=== PATIENT | male | born 1940 | race Caucasian/White ===

== ENCOUNTER 2016-10-08 12:26 | Observation (INO) | payer MEDICARE, BC ==
[2016-10-08] MEDS ORDERED: Aspirin Low Dose CHEW TAB* 81 MG PO ONE (12:45)
--- NOTE | 2016-10-08 12:49 | ED ---
Headache - HPI Summary HPI Summary: Patient is BIBA after falling in his yard. His has balance issues and ambulates with a cane at baseline. He think he stepped on a loose brick in his yard which made him loose his balance, but also thinks he "passed out". His was in the front yard so a neighbor saw him down in the yard and called 911. He admits to neck pain and chest pain. He has an extensive medical history and is a poor historian, but his says his lasix was increased yesterday and he recently had 18 rounds of chemotherapy that was stopped due to mcgee in his mouth. Today he denies TELLES, recent illness, N/V/D, abdominal or hip pain. He has chronic back pain which is aching now. He has glaucoma, but denies new vision changes. 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 Onset/Duration: Sudden Onset Initially Headache Was: Mild Currently Pain Is: Mild Timing: Constant Character: Dull Location of Headache: Occipital Aggravating Factor: Nothing Allevating Factors: Nothing Associated Signs And Symptoms: Neck Pain - Allergies/Home Medications Allergies/Adverse Reactions: Allergies Allergy/AdvReac Type Severity Reaction Status Date / Time Diazepam [From Valium] Allergy Unknown Verified 10/08/16 12:42 Reaction Details Iodinated Diagnostic Agents Allergy Nausea And Verified 10/08/16 12:42 Vomiting Sulfa Antibiotics Allergy Hives Verified 10/08/16 12:42 Timolol Allergy Dizziness Verified 10/08/16 12:43 Home Medications: Home Medications Aspirin EC Low Dose* [Ecotrin EC Low Dose 81 MG*] 81 mg PO DAILY 10/08/16 [ History Confirmed 10/08/16] Brimonidine 0.2 % * [Alphagan P 0.2% *] 1 drop BOTH EYES BID 10/08/16 [History Confirmed 10/08/16] Cholecalciferol [Vitamin D3] 800 unit PO DAILY 10/08/16 [History Confirmed 10/08] Citalopram TAB* [CeleXA TAB*] 20 mg PO DAILY 10/08/16 [History Confirmed ] Darbepoetin Galo* [Aranesp Albumin Free*] 300 mcg IV Q14D 10/08/16 [History Confirmed 10/08/16] Fexofenadine (NF) [Rebecca 180 (NF)] 180 mg PO DAILY PRN 10/08/16 [History Confirmed 10/08/16] Folic Acid TAB* [Folvite TAB*] 1 mg PO BID 10/08/16 [History Confirmed 10/08/16] Latanoprost 0.005%* [Xalatan 0.005%*] 1 drop BOTH EYES BEDTIME 10/08/16 [ History Confirmed 10/08/16] Losartan Potassium & Hydrochlo [Hyzaar 100/12.5 mg] 1 tab PO DAILY 10/08/16 [ History Confirmed 10/08/16] Polyethylene Glycol 3350* [Miralax*] 17 gm PO DAILY PRN 10/08/16 [History Confirmed 10/08/16] Pregabalin CAP(*) [Lyrica CAP(*)] 100 mg PO TID 10/08/16 [History Confirmed ] Repaglinide TAB* [Prandin TAB*] 0.5 mg PO TID 10/08/16 [History Confirmed ] SitaGLIPtin (NF) [Januvia (NF)] 100 mg PO DAILY 10/08/16 [History Confirmed ] clonazePAM TAB(*) [KlonoPIN TAB(*)] 0.5 - 1 mg PO BID PRN MDD 2 mg 10/08/16 [ History Confirmed 10/08/16] fentaNYL PATCH 25 MCG/HR* [Duragesic PATCH 25 Mcg/Hr*] 25 mcg TRANSDERM Q72H [History Confirmed 10/08/16] PMH/Surg Hx/FS Hx/Imm Hx Endocrine/Hematology History: Reports: Hx Diabetes Cardiovascular History: Reports: Hx Hypertension, 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 right AC joint surg. arm fx. right ankle compound fx. cataract right side Infectious Disease History: No Infectious Disease History: Denies: Traveled Outside the [place] in Last 30 Days - Family History Known Family History: Positive: Cardiac Disease, Hypertension - Social History Occupation: Retired Lives: With Family Alcohol Use: None Substance Use Type: Reports: None Smoking Status (MU): Former Smoker Review of Systems Negative: Fever, Chills Negative: Photophobia, Blurred Vision, Diplopia, Drainage Positive: Chest Pain Negative: Shortness Of Breath Negative: Abdominal Pain, Vomiting, Diarrhea, Nausea Positive: Edema - bilateral ankles at baseline Positive: Paresthesia - baseline neuropathy. Negative: Weakness All Other Systems Reviewed And Are Negative: Yes Physical Exam Triage Information Reviewed: Yes Vital Signs On Initial Exam: Initial Vitals BP 168/69 10/08/16 12:32 Vital Signs Reviewed: Yes Appearance: Positive: Well-Appearing, Pain Distress, Obese Skin: Positive: Warm, Skin Color Reflects Adequate Perfusion, Dry, Tender Head/Face: Positive: Normal Head/Face Inspection - no abrasions, lacerations or hematomas Eyes: Positive: EOMI, MIRELA, Conjunctiva Inflammed - bilateral erythema at baseline ENT: Positive: Hearing grossly normal, Pharynx normal, TMs normal Neck: Positive: Supple, No Lymphadenopathy, Tenderness @ - cervical spine Respiratory/Lung Sounds: Positive: Clear to Auscultation, Breath Sounds Present. Negative: Rales, Rhonchi, Wheezes Cardiovascular: Positive: Bradycardia Abdomen Description: Positive: Nontender, Soft. Negative: Distended - body habitus is limiting, Guarding Musculoskeletal: Negative: Edema Left, Edema Right Neurological: Positive: Sensory/Motor Intact, Alert, Oriented to Person Place, Time, CN Intact II-III, NV Bundle Intact Distally Psychiatric: Positive: Affect/Mood Appropriate AVPU Assessment: Alert Diagnostics - Vital Signs Vital Signs Temp Pulse Resp BP Pulse Ox 10/08/16 12:34 98.6 F 54 16 165/69 98 10/08/16 12:32 168/69 - Laboratory Result Diagrams: 10/08/16 13:15 10/08/16 13:15 Lab Statement: Any lab studies that have been ordered have been reviewed, and results considered in the medical decision making process. - CT No standard instances CT Interpretation: No Acute Changes CT Interpretation Completed By: Radiologist - CT brain negative; CT cervical spine negative; CT chest incidental nodule left lung - EKG No standard instances Cardiac Rate: Bradycardia EKG Rhythm: Sinus Rhythm ST Segment: Normal Ectopy: None EKG Comparison: No Significant Change Headache Course/Dx - Diagnoses Differential Diagnosis/HQI/PQRI: TIA, Subdural Hematoma, Migraine, Sinus Headache, Subarachnoid Hemorrhage, Viral Syndrome Provider Diagnoses: Syncope - Physician Notifications Discussed Care Of Patient With: Dr. Tillman, ED attending; Dr. Baird, hospitalist. Instructed by Provider To: Admit As Inpatient Discharge - Discharge Plan Condition: Stable Disposition: ADMITTED TO [facility]
[2016-10-08 13:29] LABS: Hematocrit 32 % (42-52); Hemoglobin 10.6 g/dl (14.0-18.0); Mean Corpuscular HGB Conc 33 g/dl (31-36); Mean Corpuscular Hemoglobin 26 pg (27-31); Mean Corpuscular Volume 79 fL (80-94); Mean Platelet Volume 9 um3 (7.4-10.4); Red Blood Count 4.04 10^6/ul (4.0-5.4); Red Cell Distribution Width 23 % (10.5-15); White Blood Count 4.3 10^3/ul (3.5-10.8)
[2016-10-08 13:30] LABS: Add Diff/Slide Review? Slide Review Added; Comments Flag Yes
[2016-10-08] MEDS ORDERED: Acetaminophen TAB* 325 MG PO ONE (13:32)
[2016-10-08 13:48] LABS: Albumin 3.8 g/dL (3.2-5.2); BUN/Creatinine Ratio 14.3 (8-20); EGFR African American 88.1 (>60); EGFR Non-African American 68.5 (>60); Globulin 2.8 g/dL (2-4); Magnesium 1.8 mg/dL (1.9-2.7); Total Bilirubin 0.8 mg/dL (0.2-1.0); Total Protein 6.6 g/dL (6.4-8.9)
--- NOTE | 2016-10-08 13:58 | RAD ---
HISTORY: Fall, syncope COMPARISONS: None TECHNIQUE: Multiple contiguous axial CT scans were obtained of the head without intravenous contrast. FINDINGS: HEMORRHAGE/INFARCT: There is no hemorrhage or acute infarct. MASSES/SHIFT: There is no mass or shift. EXTRA-AXIAL SPACES: There are no extra-axial fluid collections. SULCI AND VENTRICLES: There is diffuse and proportional enlargement of the sulci and ventricles. CEREBRUM: There is hypoattenuation of the periventricular and subcortical white matter. BRAINSTEM: There are no focal parenchymal abnormalities. CEREBELLUM: There are no focal parenchymal abnormalities. VESSELS: The vessels are grossly normal. PARANASAL SINUSES: The paranasal sinuses are clear. ORBITS: The orbits are unremarkable. BONES AND SOFT TISSUE: No bone or soft tissue abnormalities are noted. OTHER: None IMPRESSION: NO ACUTE INTRACRANIAL PATHOLOGY. DIFFUSE INVOLUTIONAL CHANGE WITH CHRONIC SMALL VESSEL ISCHEMIC CHANGES.
--- NOTE | 2016-10-08 14:00 | RAD ---
HISTORY: Fall, syncope COMPARISONS: None TECHNIQUE: Multiple contiguous axial CT scans were obtained of the cervical spine without intravenous contrast, with coronal and sagittal multiplanar reformations. FINDINGS: BRAIN: The visualized brain is unremarkable CENTRAL CANAL: Evaluation of the central canal is limited on CT technique; however, there is no obvious canalicular mass or epidural hemorrhage. ALIGNMENT: The alignment is normal, without subluxation or dislocation. VERTEBRAL BODIES: There is multilevel anterolateral marginal osteophyte formation. There is no displaced fracture or dislocation. Incidental noted is a dysraphic defect of the posterior arch of C1 JOINTS: There is osteoarthritis of the uncovertebral and facet joints MUSCULATURE: Unremarkable INTERVERTEBRAL DISCS: There is diffuse loss of intervertebral disc height. AXIAL IMAGES: C2-C3: There is no osseous neural foraminal narrowing or central canal stenosis. C3-C4: There is bilateral uncovertebral and facet hypertrophy. There is moderate right neural foraminal narrowing. There is no osseous central canal stenosis. C4-C5: There is bilateral vertebral and facet hypertrophy. There is severe right and moderate left neural foraminal area. There is moderate narrowing of central canal. C5-C6: There is bilateral uncovertebral and facet hypertrophy. There is mild to moderate bilateral neural foraminal narrowing. There is no osseous central canal stenosis. C6-C7: There is bilateral uncovertebral and facet hypertrophy. There is no osseous neural foraminal narrowing or central canal stenosis. C7-T1: There is right greater than left uncovertebral hypertrophy. There is mild right neural foraminal narrowing. There is no osseous central canal stenosis.. SOFT TISSUES: The visualized soft tissues of the neck are unremarkable. The prevertebral fat stripe is preserved. OTHER: None. IMPRESSION: 1. DEGENERATIVE DISC DISEASE AND OSTEOARTHRITIS. 2. THERE IS MODERATE NARROWING OF THE CENTRAL CANAL AT C4-C5. 3. THERE IS MULTILEVEL NEURAL FORAMINAL NARROWING DESCRIBED ABOVE. 4. THERE IS NO ACUTE OSSEOUS INJURY TO THE CERVICAL SPINE
--- NOTE | 2016-10-08 14:12 | RAD ---
INDICATION: Chest pain post fall. Syncope. COMPARISON: April 05, 2011 chest radiograph. TECHNIQUE: Multidetector CT images were obtained from the lung apices to the upper abdomen. Evaluation of the viscera is limited without IV contrast. REPORT: Negative for pleural effusion or pneumothorax. 1.4 x 1.3 x 1.2 cm irregularly margined/spiculated nodule at the lateral basal segment of the LEFT lower lobe associated with a bronchovascular bundle. No additional focal pulmonary parenchymal or central endobronchial lesions evident. Negative for thoracic lymphadenopathy. Upper normal heart size. Negative for pericardial effusion. Median sternotomy wires and prosthetic aortic valve. Limited images through the upper abdomen are remarkable for prominence of the partially visualized spleen. No rib, sternal, or thoracic spine or other thoracic fracture evident. Polyarticular degenerative arthropathy. Multilevel segmental ossification of the anterior longitudinal ligament of the thoracic spine consistent with Diffuse Idiopathic Skeletal Hyperostosis (DISH). IMPRESSION: 1. No traumatic thoracic injury evident. 2. Incidental spiculated noncalcified nodule at the lateral basal segment of the LEFT lower lobe concerning for a potential bronchogenic carcinoma. The lesion is amenable to CT-guided biopsy and also likely large enough for assessment with PET/CT. Results discussed with GELY Cowart 10/08/2016 2:09 PM EDT
--- NOTE | 2016-10-08 14:35 | RAD ---
HISTORY: Chest pain COMPARISONS: April 05, 2011 VIEWS:1: Single frontal portable view of the chest at 2:15 PM FINDINGS: LINES AND TUBES: None. CARDIOMEDIASTINAL SILHOUETTE: The cardiac silhouette is enlarged. The cardiomediastinal silhouette is otherwise normal for portable technique. PLEURA: The costophrenic angles are sharp. No pleural abnormalities are noted. LUNG PARENCHYMA: There is a diffuse reticular pattern with indistinct pulmonary vessels. ABDOMEN: The upper abdomen is clear. There is no subphrenic gas. BONES AND SOFT TISSUES: The patient is status post median sternotomy. IMPRESSION: MILD CARDIOMEGALY WITH PULMONARY INTERSTITIAL EDEMA
[2016-10-08] MEDS ORDERED: Ondansetron INJ* 2 MG/ML VIAL IV ONE (14:37)
[2016-10-08] MEDS ORDERED: Morphine INJ* 2 MG/ML 1 ML SYRINGE IV ONE (14:37)
[2016-10-08] MEDS ORDERED: Acetaminophen TAB* 325 MG PO PRN (15:13)
[2016-10-08] MEDS ORDERED: NS 0.9% 1000 ML* 1,000 ML IV SCH (15:15)
[2016-10-08] MEDS ORDERED: oxyCODONE TAB* 5 MG TAB PO PRN (15:16)
[2016-10-08] MEDS ORDERED: Dextrose 50% Syringe 50 ML* 25 GM/50 ML SYRINGE IV PUSH PRN (15:17)
[2016-10-08] MEDS ORDERED: clonazePAM TAB(*) 0.5 MG PO PRN (16:08)
[2016-10-08 16:48] LABS: TSH (Thyroid Stimulating Horm) 8.18 mcIU/mL (0.34-5.60)
[2016-10-08] MEDS ORDERED: Levothyroxine TAB* 25 MCG TAB PO ONE (16:52)
[2016-10-08] MEDS ORDERED: fentaNYL PATCH 25 MCG/HR TRANSDERM SCH (17:00)
[2016-10-08] MEDS: Insulin LISPRO* 1 UNITS UNIT SUBCUT SCH (18:32)
--- NOTE | 2016-10-08 19:22 | HP ---
ADDENDUM/CORRECTION TO MEDICATION LIST PER DR. MARX NOW INCLUDED ON THIS REPORT HISTORY AND PHYSICAL: DATE OF ADMISSION: 10/08/16 PRIMARY CARE PROVIDER: Dr. Dudley. MOSS GATHERER: Dr. Roderick Edwards from [place], [place]. CHIEF COMPLAINT: Status post fall. HISTORY OF PRESENT ILLNESS: Rafa Britt is a 76-year-old male with a history of diabetes, status post aortic valve replacement, memory problems recently as well as hypertension and chronic anemia who stated that he stepped on an uneven pavement and he fell backwards hitting his head. Immediately after hitting his head, the patient does not remember what happened. Currently , as per his present in the room, the patient is back to his baseline. He at baseline is mildly forgetful. Post fall, he started experiencing pleuritic chest pain that starts in his back , radiates to bilateral sides of his chest and can be elicited or worsened with change of position. His heart rate on the telemetry monitoring in the emergency department had been in the 40s and 60s. He is going to be admitted with diagnosis of status post fall. I suspect the patient has a mild concussion. We will also monitor for his bradycardia. PAST MEDICAL HISTORY: 1. History of known left bundle branch block. 2. Status post aortic valve replacement with a bovine aortic valve in 2010 in [place], [place]. The patient apparently was noted to have a valve leak after the replacement and had to have transaortic catheter repair of the valve in [facility] within the past 3 years. 3. History of spinal stenosis. 4. History of ganglion removal on his left hand. 5. History of carpal tunnel syndrome. 6. Dyslipidemia. 7. Hypertension. 8. Obstructive sleep apnea. 9. Diabetes type 2. 10. 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 11. History of chronic anemia, on Aranesp treatment. 12. History of bradycardia. The patient recently was taken off timolol eye drops due to bradycardia. MEDICATIONS: Include: 1. Aspirin 81 mg daily. 2. Celexa 20 mg daily. 3. Folic acid 1 mg daily. 4. Losartan/hydrochlorothiazide 100/12.5 mg daily. 5. Januvia 100 mg daily. 6. Clonazepam 0.5 mg 1 to 2 tablets twice a day as needed for anxiety. 7. Fentanyl patch 25 mcg every 72 hours. 8. Aranesp shots biweekly. 9. Vitamin D3, 800 units daily. 10. Brimonidine eye drops 1 drop each eye 2 times a day. 11. Latanoprost eye drops once before bedtime both eyes. 12. MiraLAX powder 17 g as needed for constipation daily. 13. Rebecca 180 mg daily as needed. ADDENDUM TO MEDICATION LIST: New medication - 1. Lyrica 100 mg 3 times a day. CORRECTION TO MEDICATION LIST: 1. Please take out Requip and add on Prandin 0.5 mg 3 times a day. ALLERGIES: Include 1. SULFA causes hives. 2. CONTRAST DYE causes rash and "choking." 3. VALIUM causes for the patient to get agitated. 4. TIMOLOL EYE DROPS were stopped due to noting the patient to be bradycardic. FAMILY HISTORY: Positive for father with hypertension and diabetes. SOCIAL HISTORY: The patient quit smoking in 1996. He denies any alcohol or drug use. He lives with his who is his surrogate. Her name is Marion Britt. REVIEW OF SYSTEMS: Please see history of present illness. The patient was noted recently to have low heart rate and timolol drops were discontinued. He also was noted to have high blood pressures during his evaluation with Dr. Dudley, and Dr. Dudley added on hydrochlorothiazide to his losartan just recently. Currently, the patient complains of thoracic back pain radiating to the front whenever he moves after the fall. The patient's stated that at baseline he has been having memory problems and she prefers not to leave him alone. His next evaluation by service specialist is in a couple of weeks and the patient receives shots for his anemia with Aranesp every other week. All the remaining 14 systems were reviewed with the patient and were otherwise negative. PHYSICAL EXAMINATION GENERAL: This is a pleasant 76-year-old male who is in no acute distress. The patient is alert, awake, and oriented x3. Poor short-term memory. VITAL SIGNS: Blood pressure of 142/65, heart rate of 45 and regular, respiratory rate 16, oxygen saturation 98% on room air, and temperature of 98.6. HEENT: Head: Atraumatic, normocephalic. Eyes: Pupils equal, reactive to light and accommodation. Oropharynx clear. Mucosa moist. NECK: Supple. No JVD, no bruit bilaterally. RESPIRATORY: Clear to auscultation bilaterally. CARDIOVASCULAR: Regular rate and rhythm. No bradycardia. ABDOMEN: Soft, nontender. Bowel sounds present in all 4 quadrants. EXTREMITIES: There is no edema. Pulses are +2 bilaterally. No clubbing or cyanosis. SKIN: On evaluation of the skin, specifically on evaluation of the patient's back, there are no abrasions, ecchymotic areas, or edema after the fall. When palpating the entire thoracic, lumbar, and sacral spine, there is no point tenderness noted, although the patient has generalized tenderness in the upper thoracic region. NEUROLOGIC EVALUATION: Speech clear. Cranial nerves II through XII grossly intact. Motor strength is 5/5 bilaterally. LABORATORY DATA AND DIAGNOSTIC STUDIES: Showed sodium of 134, potassium 4.0, chloride 101, carbon dioxide 30, BUN 15, creatinine 1.05. Liver function tests were unremarkable. Troponin of 0, and blood glucose level of 149. Lactic acid of 0.9. CBC: White blood cell count 4.3, hemoglobin 10.6, hematocrit of 32, MCV of 79, and platelets of 183. CT of the chest, impression: "No traumatic thoracic injury evident. Incidental spiculated non-calcified nodule in the lateral basal segment of the left lower lobe concerning for potential bronchogenic carcinoma at 1.4 x 1.3 x 1.2 cm. The lesion is amenable to CT-guided biopsy and also likely large enough for the assessment with a PET/CT." Cervical spine CT, impression: "Degenerative disk disease and osteoarthritis. There is moderate narrowing of the central canal at C4-C5. There is multilevel neuroforaminal narrowing as described above. There is no acute osseous injury to the cervical spine." Brain CT, impression: "No acute intracranial pathology. Diffuse involutional change and chronic small vessel ischemic changes." The patient's EKG shows known left bundle branch block and sinus bradycardia. ASSESSMENT AND PLAN: 1. Thoracic back pain radiating to chest: It is most likely associated to trauma and contusion. There is no evidence of cardiac abnormalities apart from bradycardia which apparently the patient had in the past. Nevertheless, due to sinus bradycardia and the patient's history of fall, the patient is going to be observed on telemetry monitored bed. TSH is going to be checked. 2. In regards to the patient's fall, the patient most likely suffered from concussion since he remembers the falling and hitting his head, but he does not remember what occurred immediately after. Once again, the patient is going to be observed on telemetry monitored bed. Due to fall and back pain, Physical Therapy and Occupational Therapy will see the patient for evaluation. 3. In regards to spiculated left lung nodule, I spoke with the patient and the patient's that that needs to be evaluated by a mold release worker and oncologist. The patient's prefers for the patient to have it evaluated by his oncologist in [place]. They already have scheduled an appointment in the mid of October 2016 for followup. 4. Once again, in regards to the patient's bradycardia, the patient's stated that if the patient were to be evaluated for pacemaker, she would prefer Dr. Edwards to do it at [place], [place]. 5. In regards to the patient's diabetic management, the patient is going to be placed on insulin sliding scale diabetic diet. 6. For his hypertension, his losartan and hydrochlorothiazide is going to be continued. 7. For his chronic pain, his fentanyl patch is going to be continued. 8. For DVT prophylaxis, the patient is going to be placed on heparin subcutaneously. 9. Code status is full. TIME SPENT: Approximately 65 minutes were spent on admission of this patient, more than half that time was spent [id number] with the patient during the interview and physical exam. CC: Dr. Dudley; Dr. Roderick Edwards, [place], [place]; Dr. Perri Mosley , Hematology/Oncology, [place], [place], fax # [phone] * [id number]/CPS #: [id number]/CPS #: [id number] [facility]
[2016-10-08] MEDS: fentaNYL Patch Check Q Shift 1 NOTE SCH (19:27)
--- NOTE | 2016-10-08 20:05 | HP ---
HISTORY AND PHYSICAL: ADDENDUM/CORRECTION: MEDICATION LIST: Please add on Lyrica 100 mg 3 times a day; that is a new medication. Please take out Requip and add on Prandin 0.5 mg 3 times a day. [id number]/[facility] #: [id number] MTDD
[2016-10-08] MEDS ORDERED: Latanoprost 0.005%* 2.5 ml BTL BOTH EYES SCH (21:00)
[2016-10-08] MEDS: Pregabalin CAP(*) 100 MG PO SCH (22:35)
[2016-10-08] MEDS: Repaglinide TAB* 0.5 MG PO SCH (22:36)
[2016-10-08] MEDS: Folic Acid TAB* 1 MG PO SCH (22:36)
[2016-10-08] MEDS: Senna TAB PO SCH (22:36)
[2016-10-09 05:32] LABS: Hematocrit 35 % (42-52); Hemoglobin 11.3 g/dl (14.0-18.0); Mean Corpuscular HGB Conc 32 g/dl (31-36); Mean Corpuscular Hemoglobin 26 pg (27-31); Mean Corpuscular Volume 81 fL (80-94); Mean Platelet Volume 9 um3 (7.4-10.4); Red Blood Count 4.35 10^6/ul (4.0-5.4); Red Cell Distribution Width 22 % (10.5-15); White Blood Count 3.5 10^3/ul (3.5-10.8)
[2016-10-09 05:40] LABS: Add Diff/Slide Review? Manual Diff Added; Comments Flag Yes
[2016-10-09 05:45] LABS: BUN/Creatinine Ratio 13.8 (8-20); Calcium 7.5 mg/dL (8.6-10.3); EGFR African American 100.1 (>60); EGFR Non-African American 77.8 (>60); Potassium 3.3 mmol/L (3.5-5.0)
[2016-10-09] MEDS ORDERED: Levothyroxine TAB* 25 MCG TAB PO SCH (06:00)
[2016-10-09 06:30] LABS: Add Path Review? YES; Eosinophils % 1 % (0-6); Neutrophil % 53 % (38-83); Reactive Lymph % 12 % (0-6)
[2016-10-09] MEDS: fentaNYL Patch Check Q Shift 1 NOTE SCH (06:40)
[2016-10-09] MEDS: Repaglinide TAB* 0.5 MG PO SCH (08:11)
[2016-10-09] MEDS: Insulin LISPRO* 1 UNITS UNIT SUBCUT SCH ×2 (08:12→12:22)
[2016-10-09] MEDS: Pregabalin CAP(*) 100 MG PO SCH (08:13)
[2016-10-09] MEDS: Folic Acid TAB* 1 MG PO SCH (08:13)
[2016-10-09] MEDS: Senna TAB PO SCH (08:13)
[2016-10-09] MEDS ORDERED: Potassium Chlor TAB* 20 MEQ TAB.ER PO ONE (08:19)
[2016-10-09] MEDS ORDERED: Aspirin EC Low Dose* 81 MG TAB.EC PO SCH (09:00)
[2016-10-09] MEDS ORDERED: Citalopram TAB* 20 MG PO SCH (09:00)
[2016-10-09 13:35] VITALS: BP 140/53
--- NOTE | 2016-10-10 03:58 | DS ---
CC: Dr. Dudley; Dr. Edwards; Perri Mosley DO DISCHARGE SUMMARY: DATE OF ADMISSION: 10/08/16 DATE OF DISCHARGE: 10/09/16 PRIMARY CARE PROVIDER: Meera Dudley MD POWER PLANT OPERATOR APPRENTICE/ONCOLOGIST: Perri Mosley DO in [place], [place], fax [phone] DISCHARGE DIAGNOSES: 1. Status post fall and head trauma with concussions. 2. Sinus bradycardia, asymptomatic. 3. Hypothyroidism. SECONDARY DIAGNOSES: 1. History of known left bundle-branch block. 2. Status post aortic valve replacement. 3. Spinal stenosis. 4. Obstructive sleep apnea. 5. Diabetes type 2. 6. Hypertension. 7. Dyslipidemia. 8. 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 9. History of chronic anemia, on Aranesp treatments. 10. History of bradycardia. MEDICATIONS AT DISCHARGE: Include: 1. Aspirin 81 mg daily. 2. Celexa 20 mg daily. 3. Folic acid 1 mg daily. 4. Losartan/hydrochlorothiazide 100/12.5 mg daily. 5. Januvia 100 mg daily. 6. Clonazepam 0.5 mg 1 to 2 tablets twice a day as needed for anxiety. 7. Fentanyl patch 25 mcg every 72 hours. 8. Aranesp shots every other week. 9. Vitamin D3 800 units daily. 10. Brimonidine eyedrops 1 drop each eye twice a day. 11. Latanoprost eyedrops once before bedtime, both eyes. 12. MiraLAX powder 17 g as needed for constipation daily. 13. Rebecca 180 mg daily. 14. Lyrica 100 mg 3 times a day. 15. Prandin 0.5 mg 3 times a day. 16. Synthroid 25 mcg daily. The last medication is the only new medication and new change. LABORATORY DATA THROUGHOUT THE PATIENT'S HOSPITAL STAY: On 10/09/16, white blood cell count of 3.5, hemoglobin of 11.3, hematocrit of 35, and platelets of 176. Sodium was 140, potassium 3.3, chloride 109, carbon dioxide 26, BUN 13, creatinine 0.94. The patient's troponins throughout the patient's hospital stay were 0. The patient's TSH was noted to be 8.18. Chest CT, cervical spine CT, and brain CT were included in history and physical dictated at admission. Please note the chest CT noted on 10/08/16 showed 1.4 x 1.3 x 1.2 cm irregularly margined, spiculated nodule in the lateral basal segment of the left lower lobe associated with bronchovascular bundle. It is concerning for potential bronchogenic carcinoma. The lesion is amenable to CT-guided biopsy and likely large enough for assessment with PET scan. At discharge, the patient is recommended to follow up with Dr. Dudley in approximately 1 to 2 weeks. The patient also has already an appointment with Dr. Mosley in less than 2 weeks, which he is advised to keep. During this appointment, the patient is planning to discuss the findings of left lung nodule as mentioned above. The patient is to follow up with Dr. Edwards as previously scheduled. PHYSICAL EXAMINATION AT THE TIME OF DISCHARGE: Blood pressure of 140/53, heart rate of 46 and regular, respiratory rate 16, oxygen saturation 95% on room air, and temperature 97.4. General: The patient is a very pleasant 76-year-old male , who is in no acute distress. Alert, awake, and oriented x3. HEENT: Head is atraumatic, normocephalic. Eyes: Pupils equal, reactive to light and accommodation. Oropharynx clear. Mucosa moist. Neck: Supple. No JVD, no bruit bilaterally. Cardiovascular: Regular rate and rhythm. No murmur. Respiratory: Clear to auscultation bilaterally. Abdomen: Soft, nontender. Bowel sounds present in all 4 quadrants. Extremities: There is trace bilateral ankle edema. Pulses are +2 bilaterally. No clubbing or cyanosis. Neuro Evaluation: Please note that the patient has poor short-term memory. Speech clear. Cranial nerves II through XII are grossly intact. Motor strength is 5/5 bilaterally. On evaluation of the skin, no ecchymotic areas or rashes noted. HOSPITALIZATION COURSE: Rafa Britt is a 76-year-old male who has a history of falls and was advised to use a walker previously, but never did so. The patient stepped on an uneven pavement and fell backwards. He stated that he remembers falling and remembers hitting his head, but afterwards, he lost consciousness and had amnesia for several seconds. He recovered and he was brought to the ED for evaluation. Here, he was noted to have no abrasions and no traumatic injuries. Nevertheless, he complained of thoracic back pain that was worse when he moved. He was also noted to be in sinus bradycardia. For that, he was observed on telemetry monitored bed. 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 The patient recovered very well throughout his hospital stay. He had no altered mental status after he was evaluated in the ED and further on observed on telemetry monitored bed. He continued to have sinus bradycardia with the heart rates between 44 and 54 beats per minute. He was otherwise asymptomatic and ambulated without any problems with his heart rate being this way. He never developed hypotension. As per the information that I received from the patient and the patient's , the patient has a history of bradycardia and in fact, his timolol drops were discontinued for possibility of causing worsening of bradycardia. TSH was evaluated and was noted to be elevated and in conjunction with the patient's bradycardia, he was placed on a low-dose Synthroid replacement. It is recommended for the patient to have a repeat TSH in 4 to 6 weeks. Due to thoracic back pain, a CT of the chest was obtained in the emergency department and noted to have a 1.2 x 1.3 x 1.4 cm nodule in the left lower lobe. It was discussed with the patient and the patient's family. They wished not to proceed with any further Pulmonology or biopsy evaluation at our facility. The patient and the patient's wished to discuss it further with Dr. Mosley with whom they have an appointment within the next 2 weeks. They are aware that the lesion could be cancer and the need for further evaluation. Prior to the patient's discharge, the patient was evaluated by Physical Therapy and Occupational Therapy. The patient was recommended outpatient physical therapy continuation as well as to ambulate with a walker. Prior to the patient 's discharge, I stressed the importance of the patient's ambulation with a walker to prevent falls. Please note that this is a short summary of the patient's hospital stay. Please refer to further medical records for details. [id number] #: [id number] MTDD
== END 2016-10-09 14:15 | disposition home or self-care (01) ==
LOC: ED 12:26 → MEDTELE 14:34
PROVIDERS: ADMIT Internal Medicine; ATTEND Internal Medicine
DX: S06.0X1A Concussion with loss of consciousness of 30 minutes or less, initial encounter (principal); W01.198A Fall on same level from slipping, tripping and stumbling with subsequent striking against other object, initial encounter; Y92.009 Unspecified place in unspecified non-institutional (private) residence as the place of occurrence of the external cause; R07.9 Chest pain, unspecified; M54.6 Pain in thoracic spine; R00.1 Bradycardia, unspecified; E03.9 Hypothyroidism, unspecified; I44.7 Left bundle-branch block, unspecified; Z95.2 Presence of prosthetic heart valve; G47.33 Obstructive sleep apnea (adult) (pediatric); E11.9 Type 2 diabetes mellitus without complications; I10 Essential (primary) hypertension; E78.5 Hyperlipidemia, unspecified; C06.9 Malignant neoplasm of mouth, unspecified; D64.9 Anemia, unspecified; Z79.82 Long term (current) use of aspirin; Z79.899 Other long term (current) drug therapy; Z79.84 Long term (current) use of oral hypoglycemic drugs; Z88.2 Allergy status to sulfonamides; Z88.8 Allergy status to other drugs, medicaments and biological substances
CPT/HCPCS: 36415; 70450; 71010; 71250; 72125; 80048; 80053; 83605; 83735; 84443; 84484; 85025; 85060; 93005; 96374; 96375; 99284; A9270-GY; G0378; G8978-GP-CI; G8979-GP-CI; G8980-GP-CI; G8987-GO-CJ; G8988-GO-CJ; J2270; J2405

== ENCOUNTER 2017-07-29 18:43 | Observation (INO) | payer MEDICARE, BC ==
--- NOTE | 2017-07-29 21:24 | RAD ---
Indication: Neurologic changes. CT of the brain was performed without IV contrast. Ventricular structures are midline. No midline shift is noted. There is central and cortical atrophy. There is no evidence of intracranial mass or hemorrhage. No other high or low density lesions are identified. Mastoid air cells and paranasal sinuses are otherwise unremarkable. Overall no changes noted since October 08, 2016. IMPRESSION: Atrophy. No intracranial mass or hemorrhage is noted. No changes noted since October 08, 2016.
[2017-07-29] MEDS ORDERED: Morphine INJ* 4 MG/ML 1 ML CARPUJECT IV ONE (21:29)
[2017-07-29] MEDS ORDERED: Ondansetron INJ* 2 MG/ML VIAL IV ONE (21:29)
[2017-07-29] MEDS ORDERED: Aspirin TAB* 325 MG PO ONE (21:39)
--- NOTE | 2017-07-29 21:47 | RAD ---
Indication: Neurologic changes, "code aragon. Single frontal view of the chest performed at 2131 hours was reviewed. Comparison is made with previous exam dated October 08, 2016. No mediastinal shift is noted. Heart is of normal size and configuration. Interstitial edema consistent with CHF is noted.. IMPRESSION: [facility].
[2017-07-29] MEDS ORDERED: Latanoprost 0.005%* 2.5 ml BTL BOTH EYES SCH (22:00)
[2017-07-29 22:12] LABS: EGFR Non-African American 60.3 (>60)
[2017-07-29 22:16] LABS: Hematocrit 26 % (42-52); Hemoglobin 8.7 g/dl (14.0-18.0); Mean Corpuscular HGB Conc 34 g/dl (31-36); Mean Corpuscular Hemoglobin 24 pg (27-31); Mean Corpuscular Volume 71 fL (80-94); Red Blood Count 3.65 10^6/ul (4.0-5.4); Red Cell Distribution Width 27 % (10.5-15); White Blood Count 9.9 10^3/ul (3.5-10.8)
[2017-07-29 22:28] LABS: INR 1.1 (0.77-1.02)
[2017-07-29 22:58] LABS: Monocytes % 6 % (0-13); Schistocytes 3+; Tear Drop Cells 2+
[2017-07-29 22:59] LABS: Mean Platelet Volume 8 um3 (7.4-10.4); Platelet Count 219 10^3/ul (150-450)
--- NOTE | 2017-07-29 23:12 | ED ---
Reji Andrade Nikita, scribed for Gerardo Mayes MD on 07/29/17 at 2058 . Neurological HPI - HPI Summary HPI Summary: This patient is a 77 year old M presenting to ED with a chief complaint of neurological deficits since 3 weeks ago. The CC is described as intermittent with episodes once a day, lasting 10 minutes. Pt has been unable to express words. The patient rates the pain 0/10 in severity. Symptoms aggravated by nothing. Symptoms alleviated by spontaneous resolution. Patient reports weakness in the R hand (1729 today, pt is R-handed), abdominal pain (pt hasnt eaten today), and back pain due to fall a few months ago (nothing was broken). - History of Current Complaint Chief Complaint: EDNeurologicalDeficit Stated Complaint: WEAKNESS/SPEECH Time Seen by Provider: 07/29/17 20:42 Hx Obtained From: Patient, Family/Pack Train Driver Onset/Duration: Sudden Onset, Started weeks ago, Still Present Timing: Intermittent Episodes Lasting: - 10 minutes Current Severity: None Neurological Deficit Location: RUE Pain Intensity: 0 Pain Scale Used: 0-10 Numeric Character: Other: - unable to express his words Aggravating: Nothing Alleviating: Spontanious Resolution Associated Signs and Symptoms: Positive: Weakness - Patient reports weakness in the R hand (1729 today, pt is R-handed), abdominal pain (pt hasnt eaten today) , and back pain due to fall a few months ago (nothing was broken). - Additional Pertinent History Primary Care Physician: [id number] - Allergy/Home Medications Allergies/Adverse Reactions: Allergies Allergy/AdvReac Type Severity Reaction Status Date / Time Diazepam [From Valium] Allergy Unknown Verified 07/29/17 18:50 Reaction Details Iodinated Diagnostic Agents Allergy Nausea And Verified 07/29/17 18:50 Vomiting Sulfa Antibiotics Allergy Hives Verified 07/29/17 18:50 Timolol Allergy Dizziness Verified 07/29/17 18:50 PMH/Surg Hx/FS Hx/Imm Hx Endocrine/Hematology History: Reports: Hx Diabetes Cardiovascular History: Reports: Hx Hypertension, Hx Valvular Heart Disease - aortic valve replacement- bovine Musculoskeletal History: Reports: Hx Back Problems - spinal stenosis Sensory History: Reports: Hx Glaucoma, Hx Hearing Aid - not with patient Denies: Hx Contacts or Glasses Opthamlomology History: Reports: Hx Glaucoma Denies: Hx Contacts or Glasses Neurological History: Reports: Other Neuro Impairments/Disorders - restless leg syndrome - Cancer History Cancer Type, Location and Year: squamous cell Hx Radiation Therapy: Yes - Surgical History Surgery Procedure, Year, and Place: aortic valve replacement, then "plugged" 4 years later. right AC joint surg. arm fx. right ankle compound fx. cataract right side Infectious Disease History: No Infectious Disease History: Denies: Traveled Outside the [place] in Last 30 Days - Family History Known Family History: Positive: Cardiac Disease, Hypertension - Social History Alcohol Use: None Substance Use Type: Reports: None Smoking Status (MU): Former Smoker Review of Systems Positive: Abdominal Pain - pt hasn't eaten today Positive: Other - back pain due to fall couple months ago Neurological: Other - unable to express words, R-handed weakness All Other Systems Reviewed And Are Negative: Yes Physical Exam - Summary Physical Exam Summary: VITAL SIGNS: Reviewed. GENERAL: ~Patient is a well-developed and nourished MALE who is lying comfortable in the stretcher. Patient is not in any acute respiratory distress. HEAD AND FACE: No signs of trauma. No ecchymosis, hematomas or skull depressions. No sinus tenderness. EYES: PERRLA, EOMI x 2, No injected conjunctiva, no nystagmus. EARS: Hearing grossly intact. Ear canals and tympanic membranes are within normal limits. MOUTH: Oropharynx within normal limits. NECK: Supple, trachea is midline, no adenopathy, no JVD, no carotid bruit, no c- spine tenderness, neck with full ROM. CHEST: Symmetric, no tenderness at palpation LUNGS: Clear to auscultation bilaterally. No wheezing or crackles. CVS: Systolic murmur 2/6 over left sternal border. ABDOMEN: Soft, non-tender. No signs of distention. No rebound no guarding, and no masses palpated. Bowel sounds are normal. EXTREMITIES: FROM in all major joints, bilateral trace LE edema, no cyanosis or clubbing. NEURO: Alert and oriented x 3. No acute neurological deficits. Speech is normal and follows commands. SKIN: Dry and warm Triage Information Reviewed: Yes Vital Signs On Initial Exam: Initial Vitals Temp Pulse Resp BP Pulse Ox 98 F 60 16 142/53 98 07/29/17 18:46 07/29/17 18:46 07/29/17 18:46 07/29/17 18:46 07/29/17 18:46 Vital Signs Reviewed: Yes Diagnostics - Vital Signs Vital Signs Temp Pulse Resp BP Pulse Ox 07/29/17 19:18 98.7 F 61 20 135/49 96 07/29/17 18:46 98 F 60 16 142/53 98 - Laboratory Lab Results: Lab Results 07/29/17 07/29/17 07/29/17 Range/Units 21:45 21:45 21:45 WBC 9.9 (3.5-10.8) 10^3/ul RBC 3.65 L (4.0-5.4) 10^6/ul Hgb 8.7 L (14.0-18.0) g/dl Hct 26 L (42-52) % MCV 71 L (80-94) fL MCH 24 L (27-31) pg MCHC 34 (31-36) g/dl RDW 27 H (10.5-15) % Plt Count 219 (150-450) 10^3/ul MPV 8 (7.4-10.4) um3 Neut % (Auto) Not Reportable Lymph % (Auto) Not Reportable [place] % (Auto) Not Reportable Eos % (Auto) Not Reportable Baso % (Auto) Not Reportable Absolute Neuts (auto) Not Reportable Absolute Lymphs (auto) Not Reportable Absolute Monos (auto) Not Reportable Absolute Eos (auto) Not Reportable Absolute Basos (auto) Not Reportable Absolute Nucleated RBC Not Reportable Immature Gran % 2 (0-9) % Neutrophils % 85 H (38-83) % Band Neutrophils % 2 (0-8) % Lymphocytes % 7 L (25-47) % Monocytes % 6 (0-13) % Eosinophils % 0 (0-6) % Basophils % 0 (0-2) % Nucleated RBC % Not Reportable Abs Neuts (Manual) 8.4 H (1.5-7.7) 10^3/ul Abs Lymphs (Manual) 0.7 L (1.0-4.8) 10^3/ul Abs Monocytes (Manual) 0.6 (0-0.8) 10^3/ul Absolute Eos (Manual) 0 (0-0.6) 10^3/ul Abs Basophils (Manual) 0 (0-0.2) 10^3/ul Normal RBC Morphology Pending Polychromasia 1+ Hypochromasia 1+ Basophilic Stippling 1+ Anisocytosis 3+ Tear Drop Cells 2+ Elliptocytes 3+ Acanthocytes (Spur) 2+ Schistocytes 3+ Hem Pathologist Commnt Pending INR (Anticoag Therapy) 1.10 H (0.77-1.02) APTT 20.9 L (26.0-36.3) seconds Sodium 135 (133-145) mmol/L Potassium 3.9 (3.5-5.0) mmol/L Chloride 100 L (101-111) mmol/L Carbon Dioxide 29 (22-32) mmol/L Anion Gap 6 (2-11) mmol/L BUN 19 (6-24) mg/dL Creatinine 1.17 (0.67-1.17) mg/dL Est GFR ( Amer) 77.5 (>60) Est GFR (Non-Af Amer) 60.3 (>60) BUN/Creatinine Ratio 16.2 (8-20) Glucose 188 H (70-100) mg/dL Calcium 8.8 (8.6-10.3) mg/dL Total Bilirubin 0.70 (0.2-1.0) mg/dL AST 10 L (13-39) U/L ALT 4 L (7-52) U/L Alkaline Phosphatase 60 (34-104) U/L Total Protein 6.6 (6.4-8.9) g/dL Albumin 3.7 (3.2-5.2) g/dL Globulin 2.9 (2-4) g/dL Albumin/Globulin Ratio 1.3 (1-3) Result Diagrams: 07/29/17 21:45 07/29/17 21:45 Lab Statement: Any lab studies that have been ordered have been reviewed, and results considered in the medical decision making process. - Radiology CXR Radiology Interpretation Completed By: Radiologist - [facility].ED physician has reviewed this radiology report. - CT Brain CT Interpretation: Positive (See Comments) - Atrophy. No intracranial mass or hemorrhage is noted. No changes noted since October 08, 2016.ED physician has reviewed this radiology report. CT Interpretation Completed By: Radiologist - EKG 2100 Cardiac Rate: NL EKG Rhythm: Sinus Rhythm - 76 BPM EKG Interpretation: LBBB Re-Evaluation - Re-Evaluation First Eval Re-Evaluation Time: 22:18 Comment: Patient is calm now. Course/Dx - Course Assessment/Plan: patient is a 77 year old M presented to ED with his and daughter.Pt has been having difficulty speaking in a form of expressive aphasia for 3 weeks on and off. This evening Pt lost right hand medical service representative that improved over time. Pt has intact neuroexam in the ED. Pt CT is negative. Case discussed with Dr Baron. He did recommend CTA head and neck to R/O vascular abnormalties. Pt has iodine allergy.Can not have CTA. Pt will be admitted for further evaluation . Pt given ASA 325 mg. - Differential Dx Differential Diagnoses Neuro: Positive: Transient Ischemic Attack - Diagnoses Provider Diagnoses: TIA (transient ischemic attack) - Physician Notifications Discussed Care Of Patient With: Bill Baron Time Discussed With Above Provider: 22:16 Instructed by Provider To: Other - Consulted with Dr. Baron who wants a CTA of the head and neck. However, the patient is allergic to iodine. So the CTA was canceled and the patient will be admitted. Consulted Dr. Baron at 2233 who accepts the patient for admission. Discharge - Discharge Plan Condition: Stable Disposition: ADMITTED TO [facility] documentation as recorded by the Reji becker Nikita accurately reflects the service I personally performed and the decisions made by me, Gerardo Mayes MD.
--- NOTE | 2017-07-29 23:36 | HP ---
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 Despite reporting this has caused him a great deal of anxiety he had not sought evaluation until tonight when it occurred and was associated with RUE W/N/T. He relates he was attempting to blow his nose, but couldn't hold the tissue in his R hand. He denies LE W/N/T, change in swallow/vision, or other issues. He denies exacerbating or alleviating factors. Upon arrival to ED, he was back to baseline. CT brain WO was negative. CTA head/neck was not done 2nd reported allergy to iodinated contrast which upon further questioning is actually an adverse reaction, namely N/V. PMedHx bovine AVR 2010 s/p subsequent transaortic catheter repair for leak SCCA R buccal mucosa metastatic to submandibular lymph node s/p excision x2 & radioTX x2 sets DM2 LBBB bradycardia HTN HLD JASWANT hypothyroidism anemia spinal stenosis s/p surgery x2 depression Ambulatory Orders Aspirin EC Low Dose* [Ecotrin EC Low Dose 81 MG*] 81 mg PO DAILY 10/08/16 Brimonidine 0.2 % * [Alphagan P 0.2% *] 1 drop BOTH EYES BID 10/08/16 Cholecalciferol [Vitamin D3] 800 unit PO DAILY 10/08/16 Citalopram TAB* [Celexa TAB*] 20 mg PO DAILY 10/08/16 Darbepoetin Galo* [Aranesp Albumin Free*] 300 mcg IV Q14D 10/08/16 Fexofenadine (NF) [Rebecca 180 (NF)] 180 mg PO DAILY PRN 10/08/16 Folic Acid TAB* [Folvite TAB*] 1 mg PO BID 10/08/16 Latanoprost 0.005%* [Xalatan 0.005%*] 1 drop BOTH EYES BEDTIME 10/08/16 Losartan Potassium & Hydrochlo [Hyzaar 100/12.5 mg] 1 tab PO DAILY 10/08/16 Polyethylene Glycol 3350* [Miralax*] 17 gm PO DAILY PRN 10/08/16 Pregabalin CAP(*) [Lyrica CAP(*)] 100 mg PO TID 10/08/16 Repaglinide TAB* [Prandin TAB*] 0.5 mg PO TID 10/08/16 SitaGLIPtin (NF) [Januvia (NF)] 100 mg PO DAILY 10/08/16 clonazePAM TAB(*) [Klonopin TAB(*)] 0.5 - 1 mg PO BID PRN MDD 2 mg 10/08/16 fentaNYL PATCH 25 MCG/HR* [Duragesic PATCH 25 Mcg/Hr*] 25 mcg TRANSDERM Q72H Levothyroxine TAB* [Synthroid 25 MCG TAB*] 25 mcg PO DAILY@0600 #30 tab Allergies Sulfa Antibiotics Allergy (Mild, Verified 07/30/17 04:13) Hives Diazepam [From Valium] Allergy (Verified 07/29/17 18:50) Unknown Reaction Details Timolol Adverse Reaction (Severe, Verified 07/30/17 04:13) Bradycardia Iodinated Diagnostic Agents Adverse Reaction (Mild, Verified 07/30/17 04:13) Nausea And Vomiting PSurgHx R submandibular SCCS excision x2 bovine AVR s/p transaortic catheter repair of leak SocHx: quit smoking ~30 years ago, denies alcohol & recreational drugs; lives with his ; full code status FamHx: positive for HTN, DM2 ROS: as above, otherwise reviewed and all were negative vitals: Vital Signs Temp -17.7 C 07/30/17 03:24 Pulse 0 07/30/17 03:24 Resp 0 07/30/17 03:24 BP 000/00 07/30/17 03:24 Pulse Ox 0 07/30/17 03:24 Intake & Output 07/29/17 07/29/17 07/30/17 11:59 23:59 11:59 Intake Total 10 Balance 10 Weight 86.636 kg 84.731 kg Intake: IV Fluids 10 Constitutional: NAD, normally developed, obese white male HEENM: atraumatic; sclera/conjunctiva: anicteric/clear; hearing: markedly hard- of-hearing; oropharynx: clear, mucosa moist Neck: soft tissue: non-tender; thyroid: normal Pulmonary: clear to auscultation bilaterally, good aeration, no accessory muscle use CV: RR/RR, normal S1S2, no carotid bruit, no jugular venous distention, 2+ B DP/ PT, no edema Abdominal: soft, non-distended, non-tender, no rebound/guarding/rigidity, normoactive bowel sounds, no hepatosplenomegaly or masses, no costovertebral angle tenderness Musculoskeletal: general: grossly intact, no tenderness w/ palpation Integumental: normal appearance and texture of exposed skin Neurological cranial nerves III/IV/: symmetric light reflex, EOMI/PERRLA V: intact facial sensation VII: intact facial symmetry & eye clench VIII: baseline is markedly hard of hearing IX/X: symmetric palatal motion, no dysarthria XII: midline tongue protrusion, normal voice articulation motor: R-handed LUE: 4+/5 proximally, distally, & transfer car operator strength RUE: 4+/5 proximally, distally, & transfer car operator strength LLE: 4+/5 proximally & distally RLE: 4+/5 proximally & distally sensory crude touch: globally intact Psychiatric orientation: AA&O to PPS affect: calm mood: cooperative eye contact: good content: reliable but lacking in significant details such as he is unaware if the R submandibular excisions x2 with radioTX x2 courses was for cancer or not memory: impaired as above responses: timely insight: poor Testing: Lab Results 07/29/17 07/29/17 07/29/17 Range/Units 21:45 21:45 21:45 WBC 9.9 (3.5-10.8) 10^3/ul RBC 3.65 L (4.0-5.4) 10^6/ul Hgb 8.7 L (14.0-18.0) g/dl Hct 26 L (42-52) % MCV 71 L (80-94) fL MCH 24 L (27-31) pg MCHC 34 (31-36) g/dl RDW 27 H (10.5-15) % Plt Count 219 (150-450) 10^3/ul MPV 8 (7.4-10.4) um3 Neut % (Auto) Not Reportable Lymph % (Auto) Not Reportable Barren % (Auto) Not Reportable Eos % (Auto) Not Reportable Baso % (Auto) Not Reportable Absolute Neuts (auto) Not Reportable Absolute Lymphs (auto) Not Reportable Absolute Monos (auto) Not Reportable Absolute Eos (auto) Not Reportable Absolute Basos (auto) Not Reportable Absolute Nucleated RBC Not Reportable Immature Gran % 2 (0-9) % Neutrophils % 85 H (38-83) % Band Neutrophils % 2 (0-8) % Lymphocytes % 7 L (25-47) % Monocytes % 6 (0-13) % Eosinophils % 0 (0-6) % Basophils % 0 (0-2) % Nucleated RBC % Not Reportable Abs Neuts (Manual) 8.4 H (1.5-7.7) 10^3/ul Abs Lymphs (Manual) 0.7 L (1.0-4.8) 10^3/ul Abs Monocytes (Manual) 0.6 (0-0.8) 10^3/ul Absolute Eos (Manual) 0 (0-0.6) 10^3/ul Abs Basophils (Manual) 0 (0-0.2) 10^3/ul Normal RBC Morphology Not Reportable Polychromasia 1+ Hypochromasia 1+ Basophilic Stippling 1+ Anisocytosis 3+ Tear Drop Cells 2+ Elliptocytes 3+ Acanthocytes (Spur) 2+ Schistocytes 3+ Hem Pathologist Commnt Pending INR (Anticoag Therapy) 1.10 H (0.77-1.02) APTT 20.9 L (26.0-36.3) seconds Sodium 135 (133-145) mmol/L Potassium 3.9 (3.5-5.0) mmol/L Chloride 100 L (101-111) mmol/L Carbon Dioxide 29 (22-32) mmol/L Anion Gap 6 (2-11) mmol/L BUN 19 (6-24) mg/dL Creatinine 1.17 (0.67-1.17) mg/dL Est GFR ( Amer) 77.5 (>60) Est GFR (Non-Af Amer) 60.3 (>60) BUN/Creatinine Ratio 16.2 (8-20) Glucose 188 H (70-100) mg/dL Calcium 8.8 (8.6-10.3) mg/dL Total Bilirubin 0.70 (0.2-1.0) mg/dL AST 10 L (13-39) U/L ALT 4 L (7-52) U/L Alkaline Phosphatase 60 (34-104) U/L Total Protein 6.6 (6.4-8.9) g/dL Albumin 3.7 (3.2-5.2) g/dL Globulin 2.9 (2-4) g/dL Albumin/Globulin Ratio 1.3 (1-3) ECG, personally reviewed: sinus 1st degree AV LBBB block rate 76 CXR, personally reviewed: IMPRESSION: LIKELY VASCULAR CONGESTION. CT brain WO, personally reviewed: IMPRESSION: Atrophy. No intracranial mass or hemorrhage is noted. No changes noted since October 08, 2016. Impression: 77M w/ complex HX outlined above presenting with stuttering TIA DIAGNOSIS & PLAN Primary stuttering TIA : aspirin : telemetry : MRI brain WO, MRA head/neck WO in AM : ECHO in AM : supplemental oxygen : neurochecks : consider neurology consult in AM : supportive care Secondary bovine AVR 2011 s/p subsequent transaortic catheter repair for leak : no acute issues : ECHO in AM as above SCCA R buccal mucosa : metastatic to submandibular lymph node s/p excision x2 & radioTX x2 sets : MRI brain WO in AM to further r/o metastatic disease DM2 : check A1c : consistent carb diet : ACHS glucometry : correctional insulin LBBB, old : no acute issues HTN : review medication once reconciled HLD : review medication once reconciled : heart healthy diet hypothyroidism : review medication once reconciled anemia, chronic : review medication once reconciled depression : review medication once reconciled Admission Rational: observation for evaluation of TIA DVTp: SCDs & heparin SQ Code Status: full HCP:
[2017-07-30] MEDS ORDERED: Ondansetron INJ* 2 MG/ML VIAL IV PRN (00:33)
[2017-07-30] MEDS ORDERED: CMCS: Melatonin (NF) 3 MG TAB PO PRN (00:33)
[2017-07-30] MEDS ORDERED: Acetaminophen TAB* 325 MG PO PRN (00:33)
[2017-07-30] MEDS ORDERED: Albuterol 2.5 MG/3 ML NEB.SOL* (0.083%) INH PRN (00:33)
[2017-07-30] MEDS ORDERED: NS 0.9% 1000 ML* 1,000 ML IV SCH (00:45)
[2017-07-30 05:46] LABS: Hematocrit 25 % (42-52); Hemoglobin 8.3 g/dl (14.0-18.0); Mean Corpuscular HGB Conc 33 g/dl (31-36); Mean Corpuscular Hemoglobin 23 pg (27-31); Mean Corpuscular Volume 70 fL (80-94); Red Blood Count 3.53 10^6/ul (4.0-5.4); White Blood Count 8.7 10^3/ul (3.5-10.8)
[2017-07-30 05:47] LABS: EGFR Non-African American 65.4 (>60)
[2017-07-30] MEDS ORDERED: Omeprazole CAP* 20 MG PO SCH (06:00)
[2017-07-30 06:24] LABS: Monocytes % 10 % (0-13)
[2017-07-30 06:27] LABS: Schistocytes 2+; Tear Drop Cells 3+
[2017-07-30 06:30] LABS: Mean Platelet Volume 9 um3 (7.4-10.4)
[2017-07-30 06:31] LABS: Platelet Count 202 10^3/ul (150-450)
[2017-07-30 06:32] LABS: Red Cell Distribution Width 27 % (10.5-15)
[2017-07-30] MEDS: Insulin LISPRO* 1 UNITS UNIT SUBCUT SCH ×3 (08:27→17:46)
[2017-07-30] MEDS ORDERED: Docusate CAP* 100 MG PO SCH (09:00)
--- NOTE | 2017-07-30 10:03 | ECHO ---
Patient: JAG MOREL [facility] Rec#: [id number] : 1940 Date: 07/30/2017 Age: 77y Height: 167.64 cm / 66.0 in Weight: 86.64 kg / 191.0 lbs Sex: M BSA: 1.96 Room#: [facility] Admit Date#: 07/29/2017 Type: Inpatient Referring: Bill Baron MD Reading: Chinyere Mg MD Limnologist: Charlotte Jaquez RDCS CC: Roderick Edwards CC: Meera Dudley MD Transthoracic Echocardiogram Indication: TIA BP: 140/62 HR: 65 Rhythm: NSR Findings History: S/P AVR 2010 with subsequent TAVR , cancer with rx, DM,LBBB,HTN,HLD,JASWANT,hypothyroid,depression former smoker. Technical Comments: The study quality is good. Completed at 0850. Left Ventricle: The left ventricular chamber size is normal. Septal wall hypertrophy is observed. The estimated ejection fraction is 50-55%. Paradoxical septal wall motion secondary to conduction abnormality. Post surgical hypokinesis of the interventricular septum is observed consistent with valve replacement. Abnormal left ventricular diastolic function is observed. Left Atrium: The left atrial chamber size is normal. Right Ventricle: The right ventricular cavity size is normal. The right ventricular global systolic function is normal. The septum has abnormal paradoxical motion consistent with post-operative pressure. Right Atrium: The right atrial cavity size is normal. Aortic Valve: There is no evidence of aortic regurgitation. The prosthetic aortic valve leaflets are normal. The bio-prosthetic aortic valve appears to be functioning normally. Mitral Valve: The mitral valve leaflets appear normal. There is mild mitral regurgitation. There is no evidence of mitral stenosis. Tricuspid Valve: The tricuspid valve leaflets are normal. There is mild tricuspid regurgitation. There is evidence of mild pulmonary hypertension. There is no tricuspid stenosis. Pulmonic Valve: The pulmonic valve appears normal. There is no evidence of pulmonic regurgitation. There is no pulmonic stenosis. Pericardium: A pericardial fat pad is visualized. Aorta: There is no dilatation of the ascending aorta. There is no dilatation of the aortic arch. There is no dilation of the aortic root. Pulmonary Artery: The main pulmonary artery appears normal. Venous: The inferior vena cava is dilated. There is a greater than 50% respiratory change in the inferior vena cava dimension. Summary: There was not any prior study for comparison. Conclusions The left ventricular chamber size is normal. The estimated ejection fraction is 50-55%. Paradoxical septal wall motion secondary to conduction abnormality. Post surgical hypokinesis of the interventricular septum is observed consistent with valve replacement. Abnormal left ventricular diastolic function is observed. The bio-prosthetic aortic valve appears to be functioning normally. There is mild mitral regurgitation. There is mild tricuspid regurgitation. There is evidence of mild pulmonary hypertension. Measurements Name Value Normal Range RVIDd (AP) 2D 1.8 cm (0.9 - 2.6) RVDdMajor (2D) 3.2 cm (2.2 - 4.4) RAd ISD 4CH 5.5 cm (3.4 - 4.9) RA (A4C)W 3.4 cm (2.9 - 4.6) IVSd (2D) 1.2 cm (0.6 - 1) LVPWd (2D) 1 cm (0.6 - 1) LVIDd (2D) 4.3 cm (3.6 - 5.4) LVIDs (2D) 3.1 cm - LV FS (2D) 27 % (25 - 45) Aortic Annulus 1.8 cm (1.4 - 2.6) Ao root diameter (2D) 2.7 cm (2.1 - 3.5) Ascending Ao 3.1 cm (2.1 - 3.4) Aortic arch 2 cm (1.8 - 3.4) Descending Ao 1.1 cm - LA dimension (AP) 2D 3.5 cm (2.3 - 3.8) LAd ISD 4CH 6.2 cm (2.9 - 5.3) LA ISD 4CH W 5 cm (2.5 - 4.5) Name Value Normal Range LA ESV SP 4CH (A/L) 74 ml - LA ESV SP 2CH (A/L) 45 ml - LA ESV BP (A/L) 63 ml - LA ESV BP (A/L) index 31.94 ml/m2 - LA ESV SP 4CH (MOD) 69 ml - LA ESV SP 2CH (MOD) 43 ml - Name Value Normal Range MV E-wave Vmax 0.9 m/sec - MV deceleration time 315 msec - MV A-wave Vmax 1.2 m/sec - MV E:A ratio 0.79 ratio - LV septal e' Vmax 0.1 m/sec - LV lateral e' Vmax 0.1 m/sec - LV E:e' septal ratio 9 ratio - LV E:e' lateral ratio 9 ratio - Name Value Normal Range AV Vmax 1.9 m/sec - AV VTI 42.4 cm - AV peak gradient 14.97 mmHg - AV mean gradient 7.2 mmHg - LVOT diameter 2 cm - LVOT Vmax 1.1 m/sec - LVOT VTI 24 cm - LVOT peak gradient 4.43 mmHg - LVOT mean gradient 1.88 mmHg - SV LVOT 79 ml - ZA (continuity Vmax) 1.8 cm2 - ZA (continuity VTI) 1.8 cm2 - Name Value Normal Range MR Vmax 3.25 m/sec - MR VTI 137.97 cm - Name Value Normal Range TR Vmax 3 m/sec - TR peak gradient 35 mmHg - RAP 8 mmHg - RVSP 43 mmHg - IVC diameter 2.1 cm - Name Value Normal Range PV Vmax 1.1 m/sec - PV peak gradient 4.8 mmHg -
[2017-07-30] MEDS ORDERED: Levothyroxine TAB* 25 MCG TAB PO ONE (13:26)
--- NOTE | 2017-07-30 13:38 | PN ---
Subjective Date of Service: 07/30/17 Interval History: Sx's of R arm weakness/numbness and difficulty with speech have resolved. No new c/o. His answers most questions and states he has spinal stenosis. Objective Active Medications: Acetaminophen (Tylenol Tab*) 650 mg PO Q6H PRN PRN Reason: FEVER/PAIN Albuterol (Ventolin 2.5 Mg/3 Ml Neb.Hilda*) 2.5 mg INH Q2H PRN PRN Reason: SOB/WHEEZING Aspirin (Aspirin Ec Low Dose*) 81 mg PO DAILY [facility] Docusate Sodium (Colace Cap*) 200 mg PO BID [facility] Last Admin: 07/30/17 09:39 Dose: 200 mg Heparin Sodium (Porcine) (Heparin Vial(*)) 5,000 units SUBCUT Q8HR [facility] Insulin Human Lispro (Humalog*) 0 units SUBCUT ACHS [facility] PRN Reason: Protocol Last Admin: 07/30/17 13:05 Dose: 3 unit Latanoprost (Xalatan 0.005%*) 1 drop BOTH EYES QPM [facility] Last Admin: 07/29/17 22:17 Dose: 1 drop Levothyroxine Sodium (Synthroid Tab*) 50 mcg PO DAILY@0600 [facility] Levothyroxine Sodium (Synthroid Tab*) 50 mcg PO ONCE ONE Stop: 07/30/17 13:27 Omeprazole (Prilosec Cap*) 20 mg PO DAILY@0600 [facility] Last Admin: 07/30/17 05:54 Dose: 20 mg Ondansetron HCl (Zofran Inj*) 4 mg IV Q6H PRN PRN Reason: NAUSEA Vital Signs - 8 hr 07/30/17 07/30/17 07/30/17 07:49 10:16 11:22 Temperature 97.6 F 97.8 F Pulse Rate 65 65 73 Respiratory 16 16 20 Rate Blood Pressure 129/48 135/56 (mmHg) O2 Sat by Pulse 94 94 93 Oximetry Oxygen Devices in Use Now: None Appearance: Alert, in a chair. In fair to good spirits. Looks comfortable. Eyes: No Scleral Icterus Neck: NL Appearance and Movements; NL JVP, No Thyroid Enlargement, Masses Respiratory: Symmetrical Chest Expansion and Respiratory Effort, Clear to Auscultation, Clear to Percussion Cardiovascular: NL Sounds; No Murmurs; No JVD, RRR, No Edema, - - median sternotomy scar. Extremities: No Edema, No Clubbing, Cyanosis, - Skin: No Rash or Ulcers, No Nodules or Sclerosis, - Neurological: Alert and Oriented x 3, NL Sensation - Hand die developer both 5/5. No arm drift. No tremor. Speech clear and fluent, although his answers most of the questions. Result Diagrams: 07/30/17 05:17 07/30/17 05:17 Additional Lab and Data: Lab Results 07/29/17 07/29/17 07/29/17 Range/Units 21:45 21:45 21:45 WBC 9.9 (3.5-10.8) 10^3/ul RBC 3.65 L (4.0-5.4) 10^6/ul Hgb 8.7 L (14.0-18.0) g/dl Hct 26 L (42-52) % MCV 71 L (80-94) fL MCH 24 L (27-31) pg MCHC 34 (31-36) g/dl RDW 27 H (10.5-15) % Plt Count 219 (150-450) 10^3/ul MPV 8 (7.4-10.4) um3 Neut % (Auto) Not Reportable Lymph % (Auto) Not Reportable Alexander % (Auto) Not Reportable Eos % (Auto) Not Reportable Baso % (Auto) Not Reportable Absolute Neuts (auto) Not Reportable Absolute Lymphs (auto) Not Reportable Absolute Monos (auto) Not Reportable Absolute Eos (auto) Not Reportable Absolute Basos (auto) Not Reportable Absolute Nucleated RBC Not Reportable Immature Gran % 2 (0-9) % Neutrophils % 85 H (38-83) % Band Neutrophils % 2 (0-8) % Lymphocytes % 7 L (25-47) % Monocytes % 6 (0-13) % Eosinophils % 0 (0-6) % Basophils % 0 (0-2) % Nucleated RBC % Not Reportable Abs Neuts (Manual) 8.4 H (1.5-7.7) 10^3/ul Abs Lymphs (Manual) 0.7 L (1.0-4.8) 10^3/ul Abs Monocytes (Manual) 0.6 (0-0.8) 10^3/ul Absolute Eos (Manual) 0 (0-0.6) 10^3/ul Abs Basophils (Manual) 0 (0-0.2) 10^3/ul Normal RBC Morphology Pending Polychromasia 1+ Hypochromasia 1+ Basophilic Stippling 1+ Anisocytosis 3+ Tear Drop Cells 2+ Elliptocytes 3+ Acanthocytes (Spur) 2+ Schistocytes 3+ Hem Pathologist Commnt Pending INR (Anticoag Therapy) 1.10 H (0.77-1.02) APTT 20.9 L (26.0-36.3) seconds Sodium 135 (133-145) mmol/L Potassium 3.9 (3.5-5.0) mmol/L Chloride 100 L (101-111) mmol/L Carbon Dioxide 29 (22-32) mmol/L Anion Gap 6 (2-11) mmol/L BUN 19 (6-24) mg/dL Creatinine 1.17 (0.67-1.17) mg/dL Est GFR ( Amer) 77.5 (>60) Est GFR (Non-Af Amer) 60.3 (>60) BUN/Creatinine Ratio 16.2 (8-20) Glucose 188 H (70-100) mg/dL Calcium 8.8 (8.6-10.3) mg/dL Total Bilirubin 0.70 (0.2-1.0) mg/dL AST 10 L (13-39) U/L ALT 4 L (7-52) U/L Alkaline Phosphatase 60 (34-104) U/L Total Protein 6.6 (6.4-8.9) g/dL Albumin 3.7 (3.2-5.2) g/dL Globulin 2.9 (2-4) g/dL Albumin/Globulin Ratio 1.3 (1-3) Assess/Plan/Problems-Billing Assessment: - Patient Problems (1) TIA (transient ischemic attack) Status: Acute Comment: Continue ASA. Note LDL 52, triglycerides 64 without meds. Start atorvastatin 10 mg daily. Patient and his did not want to wait until late tonight for the MRI brain, MRA head, MRA neck. They will call outpt scheduling Wednesday08/02/17 to schedule it, hopefully for 08/03. (2) Hypothyroidism Status: Acute Code(s): E03.9 - HYPOTHYROIDISM, UNSPECIFIED SNOMED Code(s): 76234672 Comment: Wallace TSH requested. (3) CAD (coronary artery disease) Status: Acute Code(s): I25.10 - ATHSCL HEART DISEASE OF [place] CORONARY ARTERY W/O ANG PCTRS SNOMED Code(s): 48702134 Comment: Continue ASA. Start atorvastatin 10 mg daily. (4) Diabetes Status: Acute Code(s): E11.9 - TYPE 2 DIABETES MELLITUS WITHOUT COMPLICATIONS SNOMED Code(s): 87018504 Comment: Resume home diabetic meds. (5) HTN (hypertension) Status: Acute Code(s): I10 - ESSENTIAL (PRIMARY) HYPERTENSION SNOMED Code(s) : 71142684 Comment: Replace losartan/thiazide with losartan 25 mg start 07/31.
[2017-07-30] MEDS ORDERED: clonazePAM TAB(*) 0.5 MG PO PRN (14:50)
[2017-07-30] MEDS ORDERED: fentaNYL PATCH 25 MCG/HR TRANSDERM SCH (15:00)
[2017-07-30 15:42] VITALS: BP 123/49
[2017-07-30] MEDS ORDERED: Atorvastatin* 10 MG TAB PO SCH (17:00)
[2017-07-30] MEDS ORDERED: fentaNYL Patch Check Q Shift 1 NOTE SCH (19:00)
--- NOTE | 2017-07-31 05:05 | DS ---
CC: Dr. Dudley DISCHARGE SUMMARY: DATE OF ADMISSION: DATE OF DISCHARGE: 07/30/17 HISTORY: This 77-year-old man presented with 3 episodes of slurred speech. This occurred nightly for the past 3 to 4 nights. Each of these episodes usually have lasted only a few minutes. The night of admission, he also had some right upper extremity weakness, numbness, and tingling. He had difficulty holding a tissue in his right hand. He was back to baseline by the time he arrived into the emergency room. He had a CT scan of the brain without contrast , which was unremarkable. The patient was monitored on the telemetry unit. An MRI of the brain was ordered as well as an MRI of the head and neck. Echocardiogram was done, this showed ejection fraction of 50% to 55%. There was postsurgical hypokinesis of the interventricular septum consistent with valve replacement. The bioprosthetic aortic valve appears to be functioning normally. The patient did not want to wait for his MR scans. He was given orders, so he could have this as an outpatient. He will call outpatient scheduling on Wednesday 08/02 to arrange an appointment, hopefully for 08/03. His losartan and hydrochlorothiazide was stopped and he was given a lower dose of losartan as a single agent. He was started on atorvastatin 10 mg daily as well. DISCHARGES DIAGNOSES: 1. TIA 2. Hypertension 3. Glaucoma 4. Diabetes 5. Hypothyroidism DISCHARGE MEDICATIONS: 1. Atorvastatin 10 mg daily. 2. Losartan 25 mg daily. 3. Polyethylene glycol 17 g daily p.r.n. 4. Latanoprost 0.005% one drop both eyes at bedtime. 5. Brimonidine 0.2% one drop both eyes b.i.d. 6. Darbepoetin 300 mcg every 14 days. 7. Vitamin D3 800 units daily. 8. Fentanyl patch 25 mcg per hour every 72 hours. 9. Clonazepam as prescribed. 10. Pregabalin 100 mg t.i.d. 11. Repaglinide 0.5 mg t.i.d. 12. Sitagliptin 100 mg daily. 13. Losartan. 14. Folic acid 1 mg b.i.d. 15. Citalopram 20 mg daily. 16. Aspirin 81 mg daily. 17. Fexofenadine 100 mg daily. 18. Levothyroxine 25 mcg daily. [id number]/[facility] #: [id number] [facility]
[2017-07-31] MEDS ORDERED: Levothyroxine TAB* 50 MCG TAB PO SCH (06:00)
[2017-07-31] MEDS ORDERED: Heparin VIAL(*) 5000 UNITS/ML VIAL (FIVE THOUSAND) SUBCUT SCH (06:00)
[2017-07-31] MEDS ORDERED: Aspirin EC Low Dose* 81 MG TAB.EC PO SCH (09:00)
[2017-07-31] MEDS ORDERED: Losartan TAB* 25 MG PO SCH (09:00)
== END 2017-07-30 17:45 | disposition home or self-care (01) ==
LOC: ED 18:43 → MEDTELE 23:32
PROVIDERS: ADMIT Hospitalist; ATTEND Internal Medicine
DX: G45.9 Transient cerebral ischemic attack, unspecified (principal); I10 Essential (primary) hypertension; H40.9 Unspecified glaucoma; E11.9 Type 2 diabetes mellitus without complications; E03.9 Hypothyroidism, unspecified; Z79.899 Other long term (current) drug therapy; Z88.2 Allergy status to sulfonamides; Z88.8 Allergy status to other drugs, medicaments and biological substances; I44.7 Left bundle-branch block, unspecified; Z95.2 Presence of prosthetic heart valve; Z87.891 Personal history of nicotine dependence; Z85.89 Personal history of malignant neoplasm of other organs and systems; E78.5 Hyperlipidemia, unspecified
CPT/HCPCS: 36415; 70450; 71045; 80048; 80053; 80061; 83036; 84443; 85025; 85060; 85610; 85730; 93005; 93306; 96374; 96375; 99284; A9270-GY; G0378; G8978-GP-CI; G8979-GP-CH; G8980-GP-CH; G8990-GO-CI; G8991-GO-CI; G8992-GO-CI; J2270; J2405

== ENCOUNTER 2017-10-31 16:02 | Inpatient (IN) | payer MEDICARE, BC ==
[2017-10-31] MEDS ORDERED: LORazepam INJ* 2 MG/ML 1 ML VIAL IV ONE (16:22)
[2017-10-31 16:48] LABS: EGFR Non-African American 67.6 (>60)
[2017-10-31 16:55] LABS: INR 1.28 (0.77-1.02)
[2017-10-31 17:08] LABS: ABS Basophils 0.1 10^3/ul (0-0.2); ABS Eosinophils 0 10^3/ul (0-0.6); ABS Lymphocytes 0.6 10^3/ul (1.0-4.8); ABS Monocytes 0.6 10^3/ul (0-0.8); ABS Neutrophils 6.6 10^3/ul (1.5-7.7); ABS Nucleated RBC 0 10^3/ul; Hematocrit 25 % (42-52); Hemoglobin 8.5 g/dl (14.0-18.0); Mean Corpuscular HGB Conc 34 g/dl (31-36); Mean Corpuscular Hemoglobin 24 pg (27-31); Mean Corpuscular Volume 71 fL (80-94); Nucleated Red Blood Cells % 0.5; Red Blood Count 3.61 10^6/ul (4.0-5.4); Red Cell Distribution Width 23 % (10.5-15); White Blood Count 7.9 10^3/ul (3.5-10.8)
--- NOTE | 2017-10-31 17:33 | RAD ---
Indication: Bilateral hip pain after fall. CT of the abdomen and pelvis was performed without oral or IV contrast administration. Coronal and sagittal reconstructed images were obtained. Lung bases demonstrate no pleural fluid. Heart is normal size without evidence of pericardial effusion. The liver is normal size. No focal lesions or intrahepatic duct dilatation location. The gallbladder demonstrates no calcified gallstones, pericholecystic fluid or wall thickening. The common duct is not dilated. The pancreas is prominent in size. Peripancreatic infiltration of fat is noted although this may represent motion artifact and cannot totally pancreatitis. Clinical correlation is suggested. No adrenal masses are noted. The kidneys demonstrate no hydronephrosis or calcifications in both kidneys are noted. Atherosclerotic aorta is noted. No retroperitoneal lymphadenopathy. Small bowel demonstrates no evidence of abnormal colon is filled with stool. No evidence of bowel obstruction noted. No free fluid is identified. There is right sided intertrochanteric fracture that is moderately comminuted. Degenerative changes of the left hip is noted. Pelvic ring is intact. IMPRESSION: Intertrochanteric fracture right hip which is moderately comminuted. Limited evaluation of pancreas due to motion artifact. I cannot totally exclude pancreatitis and clinical correlation is suggested. Likely right renal calculus.
--- NOTE | 2017-10-31 17:45 | RAD ---
Indication: Bilateral hip pain. Fall. CT of the lumbar spine. Sagittal and coronal reconstructed images were obtained. At L5-S1 there is disc desiccation and degenerative disc disease at L5-S1. Spondylitic ridge is noted. At L4-L5 there is grade 1 spondylolisthesis. There is facet arthropathy noted. There is a Schmorl's node at the superior endplate of L4. Facet arthropathy is noted bilaterally. At L3-L4 degenerative disc disease is noted. Facet arthropathy is noted. At L2-L3 there is degenerative disc disease. There is mild compression superior endplate of L2 age of which is undetermined. No retropulsed fragment is noted. At L1-L2 there is degenerative disc disease with vacuum disc phenomenon. No fracture is identified. At T12-L1 vacuum disc phenomenon is noted. Facet arthropathy is noted. IMPRESSION: Compression fracture superior endplate of L2 age of which is undetermined. Grade 1 spondylolisthesis of L4 on 5 with likely facet arthropathy. Schmorl's node is noted at the superior endplate of L4 superior endplate of L2. Multilevel degenerative disc disease is noted.
--- NOTE | 2017-10-31 17:47 | RAD ---
Indication: Right femur injury. 2 views of the right hip demonstrates intertrochanteric fracture of the right hip. No fracture is noted. IMPRESSION: Intertrochanteric fracture of the right hip. Pelvic ring is intact.
--- NOTE | 2017-10-31 17:47 | RAD ---
Indication: Ankle injury. 2 views of the right ankle demonstrates no definite fracture. Degenerative changes of the tibiotalar joint is noted. IMPRESSION: Degenerative changes tibiotalar joint without definite fracture.
--- NOTE | 2017-10-31 17:48 | RAD ---
Indication: Right foot pain. 2 views of the right hip demonstrates no definite fracture. Degenerative changes of the tibiotalar joint is noted. IMPRESSION: No fracture of the right foot is noted.
--- NOTE | 2017-10-31 17:51 | RAD ---
Indication: Right leg pain. 2 views of the right lower leg demonstrates ostial. No definite fracture is identified. IMPRESSION: No definite fracture of the right lower leg.
[2017-10-31] MEDS ORDERED: Morphine VIAL* 10 MG/ML 1 ML VIAL IV ONE (18:00)
[2017-10-31] MEDS ORDERED: Ondansetron INJ* 2 MG/ML VIAL IV ONE (18:00)
[2017-10-31] MEDS ORDERED: Morphine VIAL* 4 MG/ML VIAL (1 ml vial) IV ONE ×2 (18:04→18:06)
[2017-10-31 18:50] LABS: Monocytes % 2 % (0-7); Schistocytes 2+; Tear Drop Cells 2+
--- NOTE | 2017-10-31 18:51 | ED ---
Mile Andrade Thomas, scribed for Av Barber MD on 10/31/17 at 1638 . Complex/Multi-Sys Presentation - HPI Summary HPI Summary: The patient is a 77 year old male with a history of dementia [facility]. Per EMS, the patient was brought in with documented complaint of leg pain. He may have been found face down at the [facility] at some point. In the examination room, I cannot get a good history or physical examination because the patient is loudly and repeatedly stating ow. When I lightly touch his upper extremities, chest, and abdomen, he does not seem to be in pain from these areas. When I touch either of his lower extremities or his hips, he voices pain. He is on Ativan PRN when he becomes agitated. His is present in the examination room and she is helping to calm him down. LEVEL 5 CAVEAT: HISTORY LIMITED BY DEMENTIA - History Of Current Complaint Time Seen by Provider: 10/31/17 16:08 Hx Obtained From: EMS Hx From Patient Unobtainable Due To: Dementia Onset/Duration: Still Present Timing: Constant Severity Currently: Severe Related History: Other - Hx of dementia - Allergies/Home Medications Allergies/Adverse Reactions: Allergies Allergy/AdvReac Type Severity Reaction Status Date / Time diazepam [From Valium] Allergy Agitation Verified 10/31/17 16:37 Iodinated Contrast- Oral and Allergy Nausea And Verified 10/31/17 16:37 IV Dye Vomiting Sulfa (Sulfonamide Allergy Hives Verified 10/31/17 16:37 Antibiotics) timolol Allergy See Comment Verified 10/31/17 16:37 Home Medications: Home Medications Citalopram TAB* [CeleXA TAB*] 20 mg PO DAILY 10/31/17 [History Confirmed ] Folic Acid TAB* [Folvite TAB*] 2 mg PO DAILY 10/31/17 [History Confirmed ] Latanoprost 0.005%* [Xalatan 0.005%*] 1 drop BOTH EYES QPM 10/31/17 [History Confirmed 10/31/17] Levothyroxine TAB* [Synthroid TAB*] 50 mcg PO QAM 10/31/17 [History Confirmed ] Losartan TAB* [Cozaar TAB*] 25 mg PO DAILY 10/31/17 [History Confirmed 10/31/17] Pregabalin CAP(*) [Lyrica CAP(*)] 100 mg PO TID 10/31/17 [History Confirmed ] Repaglinide TAB* [Prandin TAB*] 1 mg PO TID AC 10/31/17 [History Confirmed 10/31] PMH/Surg Hx/FS Hx/Imm Hx Endocrine/Hematology History: Reports: Hx Diabetes Cardiovascular History: Reports: Hx Hypertension, Hx Valvular Heart Disease - aortic valve replacement- bovine Denies: Hx Pacemaker/ICD Musculoskeletal History: Reports: Hx Back Problems - spinal stenosis Sensory History: Reports: Hx Contacts or Glasses, Hx Glaucoma, Hx Hearing Aid, Hx Hearing Problem Opthamlomology History: Reports: Hx Contacts or Glasses, Hx Glaucoma Neurological History: Reports: Other Neuro Impairments/Disorders - restless leg syndrome Psychiatric History: Denies: Hx Panic Disorder - Cancer History Cancer Type, Location and Year: squamous cell Hx Radiation Therapy: Yes - Surgical History Surgery Procedure, Year, and Place: aortic valve replacement 2010 then "replugged" 4 years later 2014. right AC joint surg. right arm fx. right ankle compound fx. cataract right side. RIGHT SUBMANDIBULAR SQUAMOUS CELL CANCER REMOCAL X2. LEFT MIDDLE FINGER MASS REMOVED. RIGHT CARPAL TUNNEL. LEFT CARPAL TUNNEL. LUMBAR SPINE X2. TONSILS Infectious Disease History: No Infectious Disease History: Denies: Traveled Outside the [place] in Last 30 Days - Family History Known Family History: Positive: Cardiac Disease, Hypertension - Social History Alcohol Use: None Substance Use Type: Reports: None Smoking Status (MU): Former Smoker Review of Systems - ROS Summary Review of Systems Summary: LEVEL 5 CAVEAT: ROS LIMITED BY DEMENTIA Negative: Fever Positive: Other - Lower extremity pain, hip pain All Other Systems Reviewed And Are Negative: No Physical Exam - Summary Physical Exam Summary: LEVEL 5 CAVEAT: PHYSICAL EXAM LIMITED BY DEMENTIA I cannot get a good physical examination because the patient is loudly and repeatedly stating ow. General: well-appearing Skin: warm, color reflects adequate perfusion, dry Head: normal ENT: normal Neck: supple Respiratory: CTA, breath sounds present Cardiovascular: RRR Abdomen: soft, nontender Bowel: present Musculoskeletal: When I lightly touch his upper extremities, chest, abdomen, and left leg, he does not seem to be in pain from these areas. When I touch his right leg and his hips, he voices pain. Triage Information Reviewed: Yes Vital Signs On Initial Exam: Initial Vitals Temp Pulse Resp BP Pulse Ox 98.7 F 91 20 144/63 99 10/31/17 16:12 10/31/17 16:12 10/31/17 16:12 10/31/17 16:12 10/31/17 16:12 Vital Signs Reviewed: Yes Diagnostics - Vital Signs Vital Signs Temp Pulse Resp BP Pulse Ox 10/31/17 16:29 18 10/31/17 16:12 98.7 F 91 20 144/63 99 - Laboratory Lab Results: Lab Results 10/31/17 10/31/17 10/31/17 Range/Units 16:20 16:20 16:20 WBC 7.9 (3.5-10.8) 10^3/ul RBC 3.61 L (4.0-5.4) 10^6/ul Hgb 8.5 L (14.0-18.0) g/dl Hct 25 L (42-52) % MCV 71 L (80-94) fL MCH 24 L (27-31) pg MCHC 34 (31-36) g/dl RDW 23 H (10.5-15) % Plt Count Pending MPV Pending Neut % (Auto) Not Reportable Lymph % (Auto) Not Reportable [place] % (Auto) Not Reportable Eos % (Auto) Not Reportable Baso % (Auto) Not Reportable Absolute Neuts (auto) 6.6 (1.5-7.7) 10^3/ul Absolute Lymphs (auto) 0.6 L (1.0-4.8) 10^3/ul Absolute Monos (auto) 0.6 (0-0.8) 10^3/ul Absolute Eos (auto) 0 (0-0.6) 10^3/ul Absolute Basos (auto) 0.1 (0-0.2) 10^3/ul Absolute Nucleated RBC 0 10^3/ul Immature Gran % 1 (0-9) % Neutrophils % 88 H (38-83) % Band Neutrophils % 1 (0-8) % Lymphocytes % 9 L (25-47) % Monocytes % 2 (0-7) % Eosinophils % 0 (0-6) % Basophils % 0 (0-2) % Nucleated RBC % 0.5 Abs Neuts (Manual) 7.0 (1.5-7.7) 10^3/ul Abs Lymphs (Manual) 0.7 L (1.0-4.8) 10^3/ul Abs Monocytes (Manual) 0.2 (0-0.8) 10^3/ul Absolute Eos (Manual) 0 (0-0.6) 10^3/ul Abs Basophils (Manual) 0 (0-0.2) 10^3/ul Nucleated RBCs/100 WBC 1 H (0-0) Normal RBC Morphology Not Reportable Polychromasia 1+ Anisocytosis 2+ Microcytosis 1+ Tear Drop Cells 2+ Elliptocytes 3+ Acanthocytes (Spur) 2+ Schistocytes 2+ Hem Pathologist Commnt Pending INR (Anticoag Therapy) 1.28 H (0.77-1.02) APTT 27.2 (26.0-36.3) seconds Sodium 134 L (139-145) mmol/L Potassium 3.7 (3.5-5.0) mmol/L Chloride 99 L (101-111) mmol/L Carbon Dioxide 27 (22-32) mmol/L Anion Gap 8 (2-11) mmol/L BUN 17 (6-24) mg/dL Creatinine 1.06 (0.67-1.17) mg/dL Est GFR ( Amer) 86.9 (>60) Est GFR (Non-Af Amer) 67.6 (>60) BUN/Creatinine Ratio 16.0 (8-20) Glucose 157 H (70-100) mg/dL Lactic Acid (0.5-2.0) mmol/L Calcium 9.0 (8.6-10.3) mg/dL Total Bilirubin 0.80 (0.2-1.0) mg/dL AST 13 (13-39) U/L ALT 8 (7-52) U/L Alkaline Phosphatase 77 (34-104) U/L C-Reactive Protein 49.85 H (< 5.00) mg/L Total Protein 6.8 (6.4-8.9) g/dL Albumin 3.5 (3.2-5.2) g/dL Globulin 3.3 (2-4) g/dL Albumin/Globulin Ratio 1.1 (1-3) Lipase 22 (11.0-82.0) U/L 10/31/17 Range/Units 16:20 WBC (3.5-10.8) 10^3/ul RBC (4.0-5.4) 10^6/ul Hgb (14.0-18.0) g/dl Hct (42-52) % MCV (80-94) fL MCH (27-31) pg MCHC (31-36) g/dl RDW (10.5-15) % Plt Count MPV Neut % (Auto) Lymph % (Auto) [place] % (Auto) Eos % (Auto) Baso % (Auto) Absolute Neuts (auto) (1.5-7.7) 10^3/ul Absolute Lymphs (auto) (1.0-4.8) 10^3/ul Absolute Monos (auto) (0-0.8) 10^3/ul Absolute Eos (auto) (0-0.6) 10^3/ul Absolute Basos (auto) (0-0.2) 10^3/ul Absolute Nucleated RBC 10^3/ul Immature Gran % (0-9) % Neutrophils % (38-83) % Band Neutrophils % (0-8) % Lymphocytes % (25-47) % Monocytes % (0-7) % Eosinophils % (0-6) % Basophils % (0-2) % Nucleated RBC % Abs Neuts (Manual) (1.5-7.7) 10^3/ul Abs Lymphs (Manual) (1.0-4.8) 10^3/ul Abs Monocytes (Manual) (0-0.8) 10^3/ul Absolute Eos (Manual) (0-0.6) 10^3/ul Abs Basophils (Manual) (0-0.2) 10^3/ul Nucleated RBCs/100 WBC (0-0) Normal RBC Morphology Polychromasia Anisocytosis Microcytosis Tear Drop Cells Elliptocytes Acanthocytes (Spur) Schistocytes Hem Pathologist Commnt INR (Anticoag Therapy) (0.77-1.02) APTT (26.0-36.3) seconds Sodium (139-145) mmol/L Potassium (3.5-5.0) mmol/L Chloride (101-111) mmol/L Carbon Dioxide (22-32) mmol/L Anion Gap (2-11) mmol/L BUN (6-24) mg/dL Creatinine (0.67-1.17) mg/dL Est GFR ( Amer) (>60) Est GFR (Non-Af Amer) (>60) BUN/Creatinine Ratio (8-20) Glucose (70-100) mg/dL Lactic Acid 1.1 (0.5-2.0) mmol/L Calcium (8.6-10.3) mg/dL Total Bilirubin (0.2-1.0) mg/dL AST (13-39) U/L ALT (7-52) U/L Alkaline Phosphatase (34-104) U/L C-Reactive Protein (< 5.00) mg/L Total Protein (6.4-8.9) g/dL Albumin (3.2-5.2) g/dL Globulin (2-4) g/dL Albumin/Globulin Ratio (1-3) Lipase (11.0-82.0) U/L Result Diagrams: 10/31/17 16:20 10/31/17 16:20 Lab Statement: Any lab studies that have been ordered have been reviewed, and results considered in the medical decision making process. - Radiology Ankle XR Xray Interpretation: No Acute Changes - IMPRESSION: Degenerative changes tibiotalar joint without definite fracture. Dr. Barber has reviewed this report. Radiology Interpretation Completed By: Radiologist Femur XR Xray Interpretation: Positive (See Comments) - IMPRESSION: Intertrochanteric fracture of the right hip. Pelvic ring is intact. Dr. Barber has reviewed this report. Radiology Interpretation Completed By: Radiologist Foot XR Xray Interpretation: No Acute Changes - IMPRESSION: No fracture of the right foot is noted. Dr. Barber has reviewed this report. Radiology Interpretation Completed By: Radiologist Lower Leg Right XR Xray Interpretation: No Acute Changes - IMPRESSION: No definite fracture of the right lower leg. Dr. Barber has reviewed this report. Radiology Interpretation Completed By: Radiologist - CT CT Abdomen/Pelvis W/O CT Interpretation: Positive (See Comments) - IMPRESSION: Intertrochanteric fracture right hip which is moderately comminuted. Limited evaluation of pancreas due to motion artifact. I cannot totally exclude pancreatitis and clinical correlation is suggested. Likely right renal calculus. Dr. Barber has reviewed this report. CT Interpretation Completed By: Radiologist CT Lumbar Spine W/O CT Interpretation: Positive (See Comments) - IMPRESSION: Compression fracture superior endplate of L2 age of which is undetermined. Grade 1 spondylolisthesis of L4 on 5 with likely facet arthropathy. Schmorl's node is noted at the superior endplate of L4 superior endplate of L2. Multilevel degenerative disc disease is noted. Dr. Barber has reviewed this report. CT Interpretation Completed By: Radiologist Complex Multi-Symp Course/Dx Course Of Treatment: DISCUSSED WITH ORTHOPEDICS, DR TORIBIO, AND THE HOSPITALIST. ADMIT HOSPITALIST. - Diagnoses Provider Diagnoses: Closed right hip fracture - Physician Notifications Discussed Care Of Patient With: Verito Coto Time Discussed With Above Provider: 18:18 Instructed by Provider To: Other - Dr. Coto, hosplitalist, will admit the patient. Dr. Toribio, orthopedics, is OK with the patient being admitted to medicine. Discharge - Sign-Out/Discharge Documenting (check all that apply): Discharge - Patient admitted by Dr. Coto - Discharge Plan Condition: Stable Disposition: ADMITTED TO [facility] Referrals: No Primary Care Phys,NOPCP [Primary Care Provider] - - Billing Disposition and Condition Condition: STABLE [place] [place] The documentation as recorded by the Mile becker Thomas accurately reflects the service I personally performed and the decisions made by , Av Barber MD.
[2017-10-31 18:52] LABS: Mean Platelet Volume 9.1 um3 (7.4-10.4); Platelet Count 179 10^3/ul (150-450)
[2017-10-31] MEDS ORDERED: Pregabalin CAP(*) 100 MG PO SCH (21:00)
[2017-10-31] MEDS ORDERED: Dextrose 50% Syringe 50 ML* 25 GM/50 ML SYRINGE IV PUSH PRN (21:05)
--- NOTE | 2017-10-31 21:59 | RAD ---
Indication: Unwitnessed fall, confusion. CT of the brain was performed without IV contrast. The study is limited due to motion artifact. There is central and cortical atrophy noted. Periventricular lucency consistent with chronic ischemic White matter change is noted. No definite midline shift is noted. No gross hemorrhage is noted although subtle hemorrhage may be obscured by motion artifact. Mastoid air cells and paranasal sinuses are otherwise unremarkable. IMPRESSION: Chronic ischemic White matter change with no obvious intracranial mass or hemorrhage although evaluation is limited due motion artifact.
[2017-10-31] MEDS: NS 0.9% 1000 ML* 1,000 ML IV SCH (22:10)
[2017-10-31] MEDS: Heparin VIAL(*) 5000 UNITS/ML VIAL (FIVE THOUSAND) SUBCUT SCH (22:14)
--- NOTE | 2017-10-31 22:26 | CONS ---
CONSULTATION REPORT: DATE OF CONSULT: 10/31/2017. REASON FOR CONSULTATION: Right hip fracture. HISTORY OF PRESENT ILLNESS: The patient is a 77-year-old man, who lives in a alf, with advanced dementia, who per report of the ED staff was found down at the alf today. He was brought to the [place] department [place] [facility] [place] The patient was not able to communicate where his pain was present. ED staff noted that his right hip was externally rotated. Multiple body parts were imaged in the emergency department including CT abdomen and pelvis, CT lumbar spine, right ankle, right foot, right lower leg, and right femur. This array of imaging diagnosed the patient with a right hip fracture and an Orthopedic Surgery consult was called. I went into the patient's room and he did not respond to any of my questions. I asked a nurse if he was nonverbal and I was told that he had communicated earlier, speaking although with inappropriate responses and unable to answer even the most basic questions about what body part hurt and how the patient injured himself. For most of this history and physical, I am using a history and physical from a prior admission, history and physical note done by Dr. Bill Baron at the patient's 07/29/17 clinic, that is an inpatient admission, which was for evaluation of transient ischemic attack. According Dr. 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 The patient had developed slurred and garbled speech lasting a few minutes before spontaneously resolving for 3 to 4 nights prior to that inpatient admission on 07/29/17. It was causing him a significant amount of anxiety. He was having some difficulty using his right upper extremity such as just to blow his nose into a Kleenex. Unclear what the patient's ambulatory baseline is given his inability provide an adequate history. 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 Diabetes mellitus type 2, left bundle-branch block, bradycardia, hypertension, hyperlipidemia, obstructive sleep apnea, hypothyroidism, anemia, spinal stenosis, and depression. PAST SURGICAL HISTORY: Bovine aortic valve replacement in 2010, status post subsequent transaortic catheter repair for leak. Excisions x2 for his squamous cell cancer with metastasis. Status post surgery x2 for lumbar spinal stenosis. AMBULATORY MEDICATIONS: 1. Aspirin low-dose 81 mg p.o. daily. 2. Bromaline drops. 3. Cholecalciferol. 4. Citalopram. 5. Darbepoetin. 6. Fexofenadine. 7. Folic acid. 8. Latanoprost. 9. Losartan. 10. Polyethylene glycol. 11. Pregabalin. 12. Repaglinide. 13. Sitagliptin. 14. Clonazepam. 15. Fentanyl patch. 16. Levothyroxine. ALLERGIES: SULFA allergies (hives), DIAZEPAM (unknown), TIMOLOL (bradycardia), IODINATED CONTRAST DYE (nausea and vomiting). SOCIAL HISTORY: The patient quit smoking 30 years ago. He has recently denied alcohol and recreational drug use. REVIEW OF SYSTEMS: Could not be done secondary to the patient's inability to be verbal when I met him. The patient was unable to describe to ER staff what was painful. PHYSICAL EXAM: Vital Signs: Temperature at 4:12 p.m. was 98.7 degrees Fahrenheit. Most recent heart rate at 6 p.m. was 102. Most recent blood pressure at 5:37 p.m. was 143/69, respiratory rate 15 with an O2 sat of 99% at 6 :00 p.m. No acute distress. The patient is lying on a stretcher in an emergency room pod. The patient's right hip is extremely externally rotated and abducted, his right knee is flexed. The patient's eyes were open partially. The patient did not respond to any of my questions. This included after I manipulated his right leg and he was clearly aroused by pain, he did not respond to any of my questions. Normocephalic, atraumatic. No tenderness to palpation of the calvarium. The patient is slightly cachectic looking. No pain with passive range of motion of all joints of bilateral upper extremities with no soft tissue swelling or brushing, and no open skin. The patient's abdomen was soft, nondistended, nontender. Right hip externally rotated in abducted posture. Pain with any passive range of motion of the right hip, significant. No clear pain with limited passive range of motion of the right knee and ankle. The patient would not move to my command and was not spontaneously moving the right lower extremity. It was difficult to assess neurovascular status, but cap refill less than 2 seconds. Left lower extremity had no soft tissue swelling or bruising. Skin intact and no pain with passive range of motion of all joints. DIAGNOSTIC STUDIES/LAB DATA: White blood cell count 7.9. Hematocrit 25. Platelet count 179. Neutrophil percentage was 88%. INR 1.28. Sodium at 134. Glucose 157, hemoglobin A1c 6.3. CRP 49.85. Lipase 22. Imaging: Four x-ray views of the right femur were reviewed by me. They show right hip intratrochanteric fracture with some mild amount of displacement. No other fractures visible. The patient also had x-ray views of the foot, which showed no fracture. X-ray views of the right ankle were obtained and show some osteoarthritis of the ankle joint with some varus deformity, significant joint space narrowing of the tibiotalar joint with osteophytes. No fracture visible. CT of the abdomen and pelvis report was reviewed and it describes a limited evaluation of the pancreas due to motion artifact. Unable to exclude pancreatitis with likely right renal calculus. Report of CT lumbar spine was reviewed and describes compression fracture L2, age indeterminant with spondylolisthesis, grade 1 L4 on L5. Multilevel degenerative disk disease. ASSESSMENT: 1. Right hip intratrochanteric fracture. 2. Multiple medical problems including diabetes mellitus. 3. Dementia. PLAN: 1. Only minimal history is available at this time regarding the patient's fall. As recently as July 2017, when the patient was admitted to [facility], was described as living with family and recovering from his metastatic squamous cell cancer, suffering from several transient ischemic attacks. Now, the patient is described as living in a facility, with dementia, so something has changed significantly in the last 3 months. I defer to the admitting hospitalist service to suss out the exact social and medical details regarding the patient's living situation and cancer prognosis as well as presence or absence of advanced dementia. 2. With regards to the right hip fracture, I recommend surgery, an open reduction and internal fixation with an intramedullary nail, short. 3. I recommend that the hospitalist service optimize and if possible, clear the patient for surgery. 4. N.p.o. after midnight. 5. The patient can be anticoagulated today, but the anticoagulation should be held on the morning of 11/01/17. 6. The patient's timing of surgery would be tomorrow in the late afternoon by myself or, if possible, earlier in the day by one of my orthopedic surgeon partners. [id number]/[facility] #: [id number] EITAN
[2017-10-31] MEDS: Insulin LISPRO* 1 UNITS UNIT SUBCUT SCH (23:58)
--- NOTE | 2017-11-01 00:13 | HP ---
CC: Dr. Dudley; Dr. Edwards* HISTORY AND PHYSICAL: DATE OF ADMISSION: 10/31/17 PROVIDER: Kamaljit Hannah NP ATTENDING PHYSICIAN: Dr. Baron* (report dictated by Kamaljit Hannah NP). PRIMARY CARE PROVIDER: Dr. Dudley. NON DESTRUCTIVE EVALUATION TECHNICIAN: Dr. Edwards. FOLLOWUP: Followed by Hematology Onc in [place] for skin cancer, unknown provider. CHIEF COMPLAINT: Unwitnessed fall with right leg pain. HISTORY OF PRESENT ILLNESS: Mr. 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 In the emergency department, he was found to have an intertrochanteric fracture of the right hip. In the emergency department, the patient was quite agitated, per staff was yelling out, being aggressive, he was given 0.5 mg of Ativan x1. The patient was seen by orthopedic surgeon, Dr. Martinez in the emergency department. Plan will be for the OR possibly tomorrow. Hospital medicine will admit to medicine service. I did speak with his Marion over the phone, she reports that her ' s dementia over the past 6 months has worsened. He recently had a hospitalization at [facility] on 10/03/17 for a slurred speech. However, she reports that a stroke and TIA were ruled out and he was diagnosed with vascular dementia and he was discharged from [facility] to [facility] in [place]. She reports that his confusion has become quite progressive. He does recognize her and family members. She reports that he continues to ambulate with a walker, but mostly sits around in chair or bed during the daytime. She reports she agrees with the plan to move forward with repair of his right hip fracture and states that he is a DNR. Per , the patient was recently taken off multiple medications on his hospitalization at [facility] early this month and was taken off Lyrica, fentanyl patch, and clonidine. He was started on Seroquel at that time; however, she reports that this was just discontinued at the detention. The patient was seen and evaluated at the bedside in the emergency department and was found to be obtunded. Pupils are equal and reactive to light. Per the helper, he is barely responding to verbal or physical stimuli. Vital signs are stable. Per nurse, he was given 0.5 mg of IV Ativan; however, this was 4 hours ago and at this time the patient will be sent for a head CT which was not done on admission. PAST MEDICAL HISTORY: 1. History of sinus bradycardia. 2. Hypothyroidism. 3. Left bundle branch block. 4. Coronary artery disease, status post CABG in 2010. 5. Blood loss anemia. 6. Status post aortic valve replacement with bovine aortic valve in 2010 in [place], [place]. Per , the patient's valve continues to have a valve leak, even leak after replacement had to have a transaortic catheter repair of the valve in [facility] in the last several years. 7. Type 2 diabetes. 8. Hypertension. 9. Hyperlipidemia. 10. Hypothyroidism. 11. Chronic back pain, previously treated with a fentanyl patch which was recently removed. 12. 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 13. History of spinal stenosis. 14. Carpal tunnel syndrome. 15. Obstructive sleep apnea. 16. History of chronic anemia, previously on Aranesp treatment. CURRENT MEDICATIONS: The patient's med rec needs to be completed. The initial med rec that was given through the ER was from the patient's history and physical from [facility] which is not his correct med list. I discussed this with the . Attempts are being made by nursing staff to contact [facility] to obtain his current med list as well. Please note there have been recent changes. ALLERGIES: DIAZEPAM, CONTRAST ORAL and IV DYE, SULFA, TIMOLOL. ADVANCED DIRECTIVES: DNR. The confirmed this over the phone. His previous MOLST stated full code; however, she states that he is to be a DNR. FAMILY HISTORY: Father had diabetes and hypertension. SOCIAL HISTORY: The patient quit smoking in 1996. His Marion Britt is his healthcare proxy. Her cellphone number is [phone]. He currently is residing at [place], [place], there number is . REVIEW OF SYSTEMS: Unobtainable. PHYSICAL EXAMINATION GENERAL APPEARANCE: Elderly frail male, lying in the emergency department stretcher, eyes closed. Moans to painful stimuli. Does not respond to questions asked. VITAL SIGNS: Temperature 98.7, heart rate 92, respirations 16, O2 sat 98% on room air, and blood pressure 117/59. HEENT: Head is normocephalic and atraumatic. Pupils are equal and reactive to light. Oropharynx is clear. Dry mucous membranes. LUNGS: Clear to auscultation bilaterally. Good aeration throughout. CARDIAC: S1 and S2. Regular rate and rhythm. ABDOMEN: Soft, nontender, and nondistended. Bowel sounds throughout. EXTREMITIES: There is no clubbing, cyanosis, or edema. The patient is positioning his right lower extremity in a triangle position. I have noted him moving both his lower extremities; however, when he moves his right lower extremity at all he yells out in pain. NEUROLOGIC: The patient's pupils are equal and reactive to light. He appears to be sedated. He did awake and yell out in pain. He does not participate in neuro exam. LABORATORY DATA AND DIAGNOSTICS: WBC 7.9, RBC 3.61, Hgb 8.5, HCT 25, MCV 71, MCH 24, MCHC 34, RDW is 23, platelet count 179. INR 1.28. Sodium 134, potassium 3.7, chloride 99, carbon-dioxide 27, anion gap 8, BUN 17, creatinine 1.06, glucose 157, lactic acid 1.1, calcium 9.0. Total bilirubin 0.80, AST 13, ALT 8, alkaline phosphatase 77, C-reactive protein 49.85. Total protein 6.8, albumin 3.5, amylase 46, lipase 22. EKG, sinus rhythm with a rate of 94 with a left bundle branch block in comparison to prior EKG on 07/29/17. There are no acute changes. Abdomen and pelvis CT, impression: "Intertrochanteric fracture right hip which is moderately comminuted. Limited evaluation of pancreas due to motion artifact. I cannot totally exclude pancreatitis and clinical correlation is suggested. Likely right renal calculus. Lumbar spine CT, impression: "Compression fracture superior end plate of L2, age of which is indeterminate. Grade 1 spondylolisthesis of L4 on L5 with likely facet arthropathy. Schmorl's node noted at the superior end plate of L4 , superior end plate of L2. Multilevel degenerative disk disease is noted". Ankle x-ray, impression: "Degenerative change, tibiotalar joint without definite fracture." Foot x-ray, "no fracture of the foot is noted." Lower extremity x-ray, impression: "No definite fracture of the right lower leg." ASSESSMENT AND PLAN: Mr. Britt is a 77-year-old male with a past medical history of type 2 diabetes status post aortic valve replacement with a continued leaky valve, coronary artery disease status post CABG, hypertension, hyperlipidemia, hyperthyroidism, chronic back pain, history of squamous cell carcinoma and dementia, who presents today from [facility] after an unwitnessed fall, found to have a right intertrochanteric fracture of the hip. 1. Hip fracture. The patient was seen by orthopedic surgeon, Dr. Martinez who saw the patient in the emergency department. The plan will be to take the patient to the OR possibly tomorrow. N.p.o. after midnight. The patient's RCRI score places him at 6.6% for major cardiac event. An EKG was performed in comparison to prior EKG, there are no acute changes. The patient did have an echocardiogram in 07/30/17 which shows an EF of 50% to 55% with abnormal left ventricular diastolic function observed, mild mitral regurgitation, mild tricuspid regurgitation, and mild evidence of pulmonary hypertension. No recommendation at this time to repeat an echocardiogram. The patient currently is undergoing a CT of the brain and if that is clear, it is felt that the patient's obtunded nature is secondary to the Ativan he received. If the CT of the brain is normal, the patient is optimized for surgery without further cardiac workup. I discussed this with his who agrees with the plan of care. 2. History of coronary artery disease, status post coronary artery bypass grafting. Per , he was just taken off multiple of his mediations in the detention setting due to his diagnosis of advancing dementia. Again waiting full med list. 3. Hypertension, controlled. The did confirm he is on losartan which will be continued. 4. Dementia. Continue Celexa. 5. Hypothyroidism. Continue Synthroid 50 mcg p.o. daily. 6. Type 2 diabetes. Fingerstick blood glucose with lispro sliding scale. 7. Chronic back pain. Per , he was just taken off his fentanyl patch and has been doing well pain sands. Again need to confirm the patient's med list. On his lumbar spine CT, he does have a noted compression fracture, superior end- plate of L2; however, the age is indeterminate. 8. History of skin cancer. The patient is followed per Hematology and Oncology service in [place]. He received treatment last year to his jaw and neck. 9. DVT prophylaxis. Heparin subcu. 10. Code status. DNR. 11. Again I have asked the nurses to obtain his med rec from [facility], number is [phone]. TIME SPENT: Approximately 70 minutes was spent on this admission. This case was discussed with Dr. Baron, who agrees with the plan of care. KAMALJIT HANNAH, GEOVANNA [id number]/JAS #: [id number] EITAN
[2017-11-01] MEDS: Morphine VIAL* 4 MG/ML VIAL (1 ml vial) IV PRN ×2 (03:20→11:58)
[2017-11-01] MEDS: Levothyroxine TAB* 50 MCG TAB PO SCH (05:22)
[2017-11-01] MEDS: Heparin VIAL(*) 5000 UNITS/ML VIAL (FIVE THOUSAND) SUBCUT SCH ×2 (05:34→14:09)
[2017-11-01] MEDS: Insulin LISPRO* 1 UNITS UNIT SUBCUT SCH ×5 (05:35→23:59)
[2017-11-01] MEDS: Folic Acid TAB* 1 MG PO SCH (08:15)
[2017-11-01] MEDS: Losartan TAB* 25 MG PO SCH (08:15)
[2017-11-01] MEDS: Citalopram TAB* 20 MG PO SCH (08:15)
[2017-11-01 08:32] LABS: Hematocrit 21 % (42-52); Hemoglobin 7.3 g/dl (14.0-18.0)
[2017-11-01 08:37] LABS: INR 1.25 (0.77-1.02)
--- NOTE | 2017-11-01 08:54 | PN ---
Progress Note - Progress Note Date of Service: 11/01/17 SOAP: Subjective: 77 y/o male s/p unwitnessed fall 10/31 in SNF with intertrochanteric fx scheduled for surgery today with Dr. Wade. VSS- tachy, afebrile overnight. Patient remains demented, at bedside, states no change from before fall. states was not very ambulatory prior to falling, poor appetite. Objective: General- Aggitated, resting flat in bed, yelling at times. MSK- right LE- PT 2+, neg homans, poor muscle tone, R leg externally rotated, shortened. no visible ecchymosis seen. + TTP over anterior hip. unable to answer questions or respond to commands. Vital Signs Temp 100.0 F 11/01/17 08:09 Pulse 82 11/01/17 08:09 Resp 20 11/01/17 08:09 BP 131/52 11/01/17 08:09 Pulse Ox 95 11/01/17 08:09 Intake & Output 10/31/17 11/01/17 11/01/17 18:59 06:59 18:59 Intake Total 0 Output Total 0 Balance 0 Weight 63.503 kg 63.503 kg Intake: Oral 0 Output: Urine 0 Other: Estimated Void Medium # Voids 1 Assessment: 77 y/o male s/p unwitnessed fall 10/31 in SNF with intertrochanteric fx scheduled for surgery today with Dr. Wade. Plan: - DVT prophylaxis- heparin - restart, hold tomorrow AM. - Surgery likely tomorrow or within 2 days - H&H - baseline anemia, worsening. h/o AVR, transfusion prior to surgery to optimize outcome. discussed with anes- would like off plavix x 2 days prior to spinal which may be safer for patient. last plavix dose 10/31 - Medical clearance- Cleared pending normal head CT- Head CT w chronic changes only. - NPO for surgery tonight, Citalopram Hydrobromide (Celexa Tab*) 20 mg PO DAILY [facility] Last Admin: 11/01/17 08:15 Dose: Not Given Dextrose (D50w Syringe 50 Ml*) 12.5 gm IV PUSH .FOR FS < 60 - SS PRN PRN Reason: FS < 60 Folic Acid (Folvite Tab*) 2 mg PO DAILY [facility] Last Admin: 11/01/17 08:15 Dose: Not Given Heparin Sodium (Porcine) (Heparin Vial(*)) 5,000 units SUBCUT Q8HR [facility] Last Admin: 11/01/17 05:34 Dose: 5,000 units Sodium Chloride (Ns 0.9% 1000 Ml*) 1,000 mls @ 75 mls/hr IV PER RATE [facility] Last Admin: 10/31/17 22:10 Dose: 75 mls/hr Insulin Human Lispro (Humalog*) 0 units SUBCUT Q6HR [facility] PRN Reason: Protocol Last Admin: 11/01/17 05:35 Dose: 1 unit Latanoprost (Xalatan 0.005%*) 1 drop BOTH EYES QPM [facility] Levothyroxine Sodium (Synthroid Tab*) 50 mcg PO 0600 [facility] Last Admin: 11/01/17 05:22 Dose: Not Given Losartan Potassium (Cozaar Tab*) 25 mg PO DAILY [facility] Last Admin: 11/01/17 08:15 Dose: Not Given Morphine Sulfate (Morphine Vial*) 2 mg IV Q4H PRN PRN Reason: PAIN - MILD Last Admin: 11/01/17 03:20 Dose: 2 mg
[2017-11-01] MEDS ORDERED: Famotidine TAB* 20 MG PO ONE (09:00)
--- NOTE | 2017-11-01 15:10 | PN ---
Subjective Date of Service: 11/01/17 Interval History: Patient seen and examined at bedside. Denies fever, chills, shortness of breath , chest discomfort, N/V/D. Pt appears to be comfortable, but "fidgety". Discussed with Pt's and daughter on the phone regarding code status and their wishes. Family History: Unchanged from Admission Social History: Unchanged from Admission Past Medical History: Unchanged from Admission Objective Active Medications: Citalopram Hydrobromide (Celexa Tab*) 20 mg PO DAILY [facility] Dextrose (D50w Syringe 50 Ml*) 12.5 gm IV PUSH .FOR FS < 60 - SS PRN Reason: FS < 60 Folic Acid (Folvite Tab*) 2 mg PO DAILY [facility] Heparin Sodium (Porcine) (Heparin Vial(*)) 5,000 units SUBCUT Q8HR [facility] Sodium Chloride (Ns 0.9% 1000 Ml*) 1,000 mls @ 75 mls/hr IV PER RATE [facility] Insulin Human Lispro (Humalog*) 0 units SUBCUT ACHS [facility] Latanoprost (Xalatan 0.005%*) 1 drop BOTH EYES QPM [facility] Levothyroxine Sodium (Synthroid Tab*) 50 mcg PO 0600 [facility] Losartan Potassium (Cozaar Tab*) 25 mg PO DAILY [facility] Morphine Sulfate (Morphine Vial*) 2 mg IV Q4H PRN Reason: PAIN - MILD Vital Signs - 8 hr 11/01/17 11/01/17 11/01/17 08:09 11:13 11:58 Temperature 100.0 F 98.7 F Pulse Rate 82 89 Respiratory 20 20 15 Rate Blood Pressure 131/52 123/60 (mmHg) O2 Sat by Pulse 95 100 Oximetry 11/01/17 12:58 Temperature Pulse Rate Respiratory 15 Rate Blood Pressure (mmHg) O2 Sat by Pulse Oximetry Oxygen Devices in Use Now: None Appearance: NAD, laying in bed Respiratory: Symmetrical Chest Expansion and Respiratory Effort, Clear to Auscultation Cardiovascular: NL Sounds; No Murmurs; No JVD, RRR Abdominal: NL Sounds; No Tenderness; No Distention Extremities: No Edema, - - Right LE externally rotated and shortened Skin: No Rash or Ulcers Neurological: - - Alert and Oriented to self, confused. Lines/Tubes/Other Access: Clean, Dry and Intact Peripheral IV - site benign Nutrition: Taking PO's Result Diagrams: 11/01/17 17:19 10/31/17 16:20 Additional Lab and Data: Assess/Plan/Problems-Billing Assessment: Mr. Britt is a 77 yo male with PMH significant for DM, s/p AVR, CAD s/p CABG, HTN, HLD, hyperthyroidism, chronic back pain, and dementia who presented to the emergency room after an unfitnesses fall at the SNF. - Patient Problems (1) Closed right hip fracture Code(s): S72.001A - FRACTURE OF UNSP PART OF NECK OF RIGHT FEMUR, INIT SNOMED Code(s): 226995677 Comment: - Management per Ortho - Continue pain managment According to the RCRI he has 2 points, placing him at a class III risk and a 6.6 % risk of a major cardiac event. There are no acute changes on EKG. Last echo 07/2017 shows EF 50-55%, with abnormal left LV diastolic function, mild MR, mild TR, mild pulmonary HTN. METs score less than 4. No further work-up needed at this time. Pt is medically optimized for surgery and may proceed to the OR. (2) Anemia Code(s): D64.9 - ANEMIA, UNSPECIFIED SNOMED Code(s): 794668968 Comment: - Acute on chronic secondary to acute blood loss anemia from the hip fracture - Pt will receive 2 units of PRBCs today - Continue to monitor HH (3) Dementia Code(s): F03.90 - UNSPECIFIED DEMENTIA WITHOUT BEHAVIORAL DISTURBANCE SNOMED Code(s): 82492680 Comment: - Continue celexa - Continue supportive care and limit narcotics (4) Chronic back pain Code(s): M54.9 - DORSALGIA, UNSPECIFIED; G89.29 - OTHER CHRONIC PAIN SNOMED Code(s): 942273843 Comment: - Hx compression FX (5) CAD (coronary artery disease) Code(s): I25.10 - ATHSCL HEART DISEASE OF [place] CORONARY ARTERY W/O ANG PCTRS SNOMED Code(s): 65861374 Comment: - Asymptomatic - History of CABG - Continue (6) Diabetes Code(s): E11.9 - TYPE 2 DIABETES MELLITUS WITHOUT COMPLICATIONS SNOMED Code(s) : 70608120 Comment: - Glucose 140-190's - Continue lispro SS (7) HTN (hypertension) Code(s): I10 - ESSENTIAL (PRIMARY) HYPERTENSION SNOMED Code(s): 68222823 Comment: - SBP 120-130's - Continue losartan (8) Hypothyroidism Current Visit: No Code(s): E03.9 - HYPOTHYROIDISM, UNSPECIFIED SNOMED Code(s ): 83619746 Comment: - TSH 8.56 07/2017 - Continue levothyroxine (9) DVT prophylaxis Code(s): HYQ0802 - SNOMED Code(s): 282678408 Comment: - Continue SQ heparin Status and Disposition: Inpatient. Discharge back to SNF after surgery and medically stable. Attending: Sonya Baird
[2017-11-01] MEDS: Latanoprost 0.005%* 2.5 ml BTL BOTH EYES SCH (17:15)
[2017-11-01 17:29] LABS: Hematocrit 27 % (42-52); Hemoglobin 9.2 g/dl (14.0-18.0)
[2017-11-01] MEDS: NS 0.9% 1000 ML* 1,000 ML IV SCH (17:59)
[2017-11-01] MEDS ORDERED: Morphine VIAL* 4 MG/ML VIAL (1 ml vial) IV PRN (23:39)
[2017-11-02] MEDS: Heparin VIAL(*) 5000 UNITS/ML VIAL (FIVE THOUSAND) SUBCUT SCH ×3 (00:01→12:55)
[2017-11-02] MEDS: Levothyroxine TAB* 50 MCG TAB PO SCH (05:07)
[2017-11-02] MEDS: Morphine VIAL* 4 MG/ML VIAL (1 ml vial) IV PRN ×2 (05:28→09:55)
[2017-11-02 07:50] LABS: INR 1.27 (0.77-1.02)
[2017-11-02 07:58] LABS: Hematocrit 27 % (42-52); Hemoglobin 9.3 g/dl (14.0-18.0); Mean Corpuscular HGB Conc 34 g/dl (31-36); Mean Corpuscular Hemoglobin 25 pg (27-31); Mean Corpuscular Volume 74 fL (80-94); Red Blood Count 3.68 10^6/ul (4.0-5.4); Red Cell Distribution Width 23 % (10.5-15); White Blood Count 9.2 10^3/ul (3.5-10.8)
[2017-11-02 08:01] LABS: EGFR Non-African American 105.6 (>60)
[2017-11-02] MEDS: Insulin LISPRO* 1 UNITS UNIT SUBCUT SCH ×4 (08:09→21:35)
[2017-11-02] MEDS: Folic Acid TAB* 1 MG PO SCH (08:09)
[2017-11-02] MEDS: Losartan TAB* 25 MG PO SCH (08:09)
[2017-11-02] MEDS: Citalopram TAB* 20 MG PO SCH (08:09)
[2017-11-02 08:49] LABS: Mean Platelet Volume 8.8 um3 (7.4-10.4); Platelet Count 130 10^3/ul (150-450)
--- NOTE | 2017-11-02 12:11 | PN ---
Subjective Date of Service: 11/02/17 Interval History: Patient seen and examined at bedside. Denies fever, chills, shortness of breath , chest discomfort, N/V/D. Pt's is concerned that he is more confused today , explained that this is likely delirium in addition to his dementia. Had another long discussion about code status, Pt's wishes for DNR and a new MOLST has been completed. We also discussed that Rafa is a high risk for surgery based on his age and medical history, and she wishes to proceed to surgery today. Family History: Unchanged from Admission Social History: Unchanged from Admission Past Medical History: Unchanged from Admission Objective Active Medications: Citalopram Hydrobromide (Celexa Tab*) 20 mg PO DAILY [facility] Dextrose (D50w Syringe 50 Ml*) 12.5 gm IV PUSH .FOR FS < 60 - SS PRN Reason: FS < 60 Folic Acid (Folvite Tab*) 2 mg PO DAILY [facility] Heparin Sodium (Porcine) (Heparin Vial(*)) 5,000 units SUBCUT Q8HR [facility] Sodium Chloride (Ns 0.9% 1000 Ml*) 1,000 mls @ 75 mls/hr IV PER RATE [facility] Insulin Human Lispro (Humalog*) 0 units SUBCUT ACHS [facility] Latanoprost (Xalatan 0.005%*) 1 drop BOTH EYES QPM [facility] Levothyroxine Sodium (Synthroid Tab*) 50 mcg PO 0600 [facility] Losartan Potassium (Cozaar Tab*) 25 mg PO DAILY [facility] Morphine Sulfate (Morphine Vial*) 2 mg IV Q4H PRN Reason: PAIN - MILD Morphine Sulfate (Morphine Vial*) 4 mg IV Q4H PRN Reason: PAIN - MILD Vital Signs - 8 hr 11/02/17 11/02/17 11/02/17 05:28 06:34 07:18 Temperature Pulse Rate Respiratory 15 16 20 Rate Blood Pressure (mmHg) O2 Sat by Pulse Oximetry 11/02/17 11/02/17 11/02/17 07:39 09:55 11:27 Temperature 98.0 F 97.6 F Pulse Rate 79 82 Respiratory 16 20 14 Rate Blood Pressure 125/45 138/45 (mmHg) O2 Sat by Pulse 98 98 Oximetry 11/02/17 11:43 Temperature Pulse Rate Respiratory 18 Rate Blood Pressure (mmHg) O2 Sat by Pulse Oximetry Oxygen Devices in Use Now: None Appearance: NAD, laying in bed Ears/Nose/Mouth/Throat: Mucous Membranes Moist Respiratory: Symmetrical Chest Expansion and Respiratory Effort, Clear to Auscultation Cardiovascular: NL Sounds; No Murmurs; No JVD, RRR Abdominal: NL Sounds; No Tenderness; No Distention Extremities: No Edema Skin: No Rash or Ulcers Neurological: NL Muscle Strength and Tone, - - Alert and Oriented to Self, confused Lines/Tubes/Other Access: Clean, Dry and Intact Peripheral IV - site benign Nutrition: Taking PO's Result Diagrams: 11/02/17 07:38 11/02/17 07:38 Additional Lab and Data: Assess/Plan/Problems-Billing Assessment: Mr. Britt is a 77 yo male with PMH significant for DM, s/p AVR, CAD s/p CABG, HTN, HLD, hyperthyroidism, chronic back pain, and dementia who presented to the emergency room after an unfitnesses fall at the SNF. - Patient Problems (1) Closed right hip fracture Code(s): S72.001A - FRACTURE OF UNSP PART OF NECK OF RIGHT FEMUR, INIT SNOMED Code(s): 583742498 Comment: - Management per Ortho - Continue pain managment According to the RCRI he has 2 points, placing him at a class III risk and a 6.6 % risk of a major cardiac event. There are no acute changes on EKG, he has an old LBBB. Last echo 07/2017 shows EF 50-55%, with abnormal left LV diastolic function, mild MR, mild TR, mild pulmonary HTN. METs score less than 4. No further work-up needed at this time. Pt is medically optimized for surgery and may proceed to the OR. (2) Anemia Code(s): D64.9 - ANEMIA, UNSPECIFIED SNOMED Code(s): 303393854 Comment: - Acute on chronic secondary to acute blood loss anemia from the hip fracture - Receive 2 units of PRBCs yesterday - Continue to monitor HH (3) Dementia Code(s): F03.90 - UNSPECIFIED DEMENTIA WITHOUT BEHAVIORAL DISTURBANCE SNOMED Code(s): 19167763 Comment: - Suspect he is developing delirium (labs WNL, will check a UA to rule out metabolic causes) - Continue celexa - Continue supportive care and limit narcotics (4) Chronic back pain Code(s): M54.9 - DORSALGIA, UNSPECIFIED; G89.29 - OTHER CHRONIC PAIN SNOMED Code(s): 890434817 Comment: - Hx compression FX (5) CAD (coronary artery disease) Code(s): I25.10 - ATHSCL HEART DISEASE OF [place] CORONARY ARTERY W/O ANG PCTRS SNOMED Code(s): 78663313 Comment: - Asymptomatic - History of CABG - Resume Plavix and ASA when ok with Ortho post-op (6) Diabetes Code(s): E11.9 - TYPE 2 DIABETES MELLITUS WITHOUT COMPLICATIONS SNOMED Code(s) : 04109869 Comment: - Glucose 130-140's - Continue lispro SS (7) HTN (hypertension) Code(s): I10 - ESSENTIAL (PRIMARY) HYPERTENSION SNOMED Code(s): 46646386 Comment: - SBP 120-130's - Continue losartan (8) Hypothyroidism Current Visit: No Code(s): E03.9 - HYPOTHYROIDISM, UNSPECIFIED SNOMED Code(s ): 08456116 Comment: - TSH 8.56 07/2017 - Continue levothyroxine (9) DVT prophylaxis Code(s): RDG1079 - SNOMED Code(s): 228675626 Comment: - Continue SQ heparin (10) DNR (do not resuscitate) Comment: - New MOL completed today Status and Disposition: Inpatient. Discharge back to SNF after surgery and medically stable.
[2017-11-02] MEDS ORDERED: Etomidate* 2 MG/ML 10 ML VIAL ONE (13:33)
[2017-11-02] MEDS ORDERED: Lidocaine 2% PF * 5 ML VIAL ONE (13:34)
[2017-11-02] MEDS ORDERED: fentaNYL* 50 MCG/ML 2 ML VIAL (100 MCG VIAL) ONE ×3 (13:35→16:31)
[2017-11-02] MEDS ORDERED: ceFAZolin 2 GM PREMIX (*) 2 GM/50 ML BAG IVPB ONE ×2 (14:10→14:11)
[2017-11-02] MEDS ORDERED: Phenylephrine INJ* 10 MG/ML 1 ML VIAL (10 MG) ONE (15:10)
[2017-11-02] MEDS ORDERED: fentaNYL* 50 MCG/ML 2 ML VIAL (100 MCG VIAL) IV PRN (15:21)
[2017-11-02] MEDS ORDERED: Acetaminophen IV 1GM/100ML * 1,000 MG/100 ML VIAL IVPB ONE (15:21)
[2017-11-02] MEDS ORDERED: oxyCODONE TAB* 5 MG TAB PO PRN ×2 (15:21→20:25)
[2017-11-02] MEDS ORDERED: Naloxone* 0.4 MG/ML 1 ML VIAL IV PRN (15:21)
[2017-11-02] MEDS ORDERED: EPHEDrine (Pressors)* 50 MG/ML VIAL ONE (15:50)
[2017-11-02] MEDS ORDERED: Acetaminophen IV 1GM/100ML * 100 ML ONE (16:03)
[2017-11-02] MEDS ORDERED: Bupivacaine 0.25% SDV* 30 ML ONE (16:25)
--- NOTE | 2017-11-02 17:18 | RAD ---
CPT II Codes: G9500 Indication: Right hip fracture. 48 seconds of fluoroscopy time was used. 4 spot images demonstrates placement of a dynamic compression screw in the right hip. IMPRESSION: Fluoroscopic services provided for referring physician for her fixation intertrochanteric fracture.
[2017-11-02] MEDS ORDERED: Dextrose 50% Syringe 50 ML* 25 GM/50 ML SYRINGE ONE (17:55)
[2017-11-02] MEDS ORDERED: Docusate CAP* 100 MG PO PRN (18:25)
[2017-11-02] MEDS ORDERED: oxyCODONE/Acetamin 5/325 MG* TAB PO PRN ×2 (18:25)
[2017-11-02] MEDS: Latanoprost 0.005%* 2.5 ml BTL BOTH EYES SCH (19:08)
[2017-11-02] MEDS: NS 0.9% 1000 ML* 1,000 ML IV SCH (21:39)
[2017-11-02] MEDS: ceFAZolin 1 GM in Dextrose (*) 1 GM/50 ML BAG IVPB SCH (22:50)
--- NOTE | 2017-11-02 23:33 | OP ---
OPERATIVE REPORT: DATE OF OPERATION: 11/02/17 DATE OF : 38 SURGICAL CARE: Right hip. SURGEON: Brown Lua MD TYPE PHOTOGRAPHY SUPERVISOR: GELY Roblero ANESTHESIOLOGIST: Dr. Amparo Calderon. ANESTHESIA: LMA general. PRE-OP DIAGNOSIS: Right hip intertrochanteric fracture. POST-OP DIAGNOSIS: Right hip intertrochanteric fracture. OPERATIVE PROCEDURE: Reduction and internal fixation of the right hip intertrochanteric fracture wit h a DHS screw and sideplate. COMPLICATIONS: There were no complications. DRAINS: There were no drains. ESTIMATED BLOOD LOSS: 300 mL. REPLACEMENT: Crystalloid fluids. OPERATIVE INDICATIONS: Right hip intertrochanteric fracture in a 77-year-old man with quite severe d ementia with pain. The rationale for the surgical care is reduction in pain and to allow mobilizatio n. DESCRIPTION OF PROCEDURE: The patient was carefully evaluated preoperatively, brought to the operati ng room and placed on the fracture table in a supine position. A general anesthetic was administered by Dr. Calderon and LMA airway was inserted and the patient was then carefully positioned on the fractur e table with a padded groin post. The right lower extremity was placed on gentle longitudinal tracti on and slight abduction and then internally rotated. The left lower extremity was flexed at the hip and knee and abducted and placed on a padded sling. The right arm was carefully folded over his chest to allow a groin lateral fluoroscopic view of the right hip. The right hip was given a preliminary chlorhexidine prep and then a final ChloraPrep above the iliac crest to the right knee. The hip was then draped carefully. We did our universal protocol time-out confirming Raaf Britt and the plan for right hip internal fixation, we all agreed and we proceede d. The skin incision went longitudinally from the distal aspect of the right greater trochanter for 4 to 5 inches longitudinally over the IT band. The skin and subcutaneous divided down to the iliotibial fascia. Careful hemostasis checked and achieved throughout the case utilizing electrocautery. The f ascia of the iliotibial band was retracted and the fascia of the vastus lateralis was then retracted anteriorly. The vastus fascia opened posteriorly and longitudinally and the elevator was used to div angeline the muscle down through the femur and subperiosteally over the anterior femur and a Correa retra ctor was inserted. The vastus lateralis was then divided bluntly and a little bit sharply to expose the lateral femoral cortex. The patient's right lower extremity had been placed on some longitudinal traction and then internally rotated and this effected nice AP and lateral fluoroscopic reduction of the right hip. The angle guide was then inserted into the lateral femoral cortex and up the femoral neck into the fe moral head staying as neutral and the head on the lateral as possible and on the AP view, the wire wa s slightly below the middle of the head. This position was accepted. Reaming was then done of the fe moral neck and then tapping and a 95 lag screw was inserted into position. A 140-degree 4-hole sidep late was applied with nice fit and then 4 screws were inserted. The final position was checked on AP and lateral fluoroscopy including the position of the fracture, the position of the screw in the fem oral head, and the position of the plate and screws in the femur. Hemostasis was then checked and ac hieved utilizing electrocautery. The surgery was irrigated with saline including the trochanteric bu rsa. The fascia of the vastus lateralis was closed with a running #1 Vicryl suture, the tensor fasci a femoris and the fascia of the iliotibial band closed with interrupted #1 [id number] Vicryls an d subcutaneous closed with 0 and then 2-0 Vicryls. The surgery was infiltrated with Marcaine 0.25% without epinephrine 30 mL and the skin closed with st aples. The skin was washed and dried and covered with Betadine soaked release followed by sterile ga uze, ABD pads and then paper tape. A 6-inch Emigdio bandage was wrapped loosely around the thigh and the n covered with tape to try to prevent the patient from picking at the dressing. The patient was then returned to the hospital bed into the recovery room in stable and satisfactory condition, having messi erated the procedure very well. [id number]/[facility] #: [id number]
[2017-11-03] MEDS: Acetaminophen TAB* 325 MG PO SCH ×4 (00:58→16:51)
[2017-11-03 06:21] LABS: Hematocrit 24 % (42-52); Hemoglobin 8.1 g/dl (14.0-18.0); Mean Corpuscular HGB Conc 33 g/dl (31-36); Mean Corpuscular Hemoglobin 25 pg (27-31); Mean Corpuscular Volume 76 fL (80-94); Red Blood Count 3.23 10^6/ul (4.0-5.4); Red Cell Distribution Width 23 % (10.5-15); White Blood Count 7.5 10^3/ul (3.5-10.8)
[2017-11-03 06:31] LABS: EGFR Non-African American 114.7 (>60)
[2017-11-03 06:48] LABS: ABS Basophils 0 10^3/ul (0-0.2); ABS Eosinophils 0 10^3/ul (0-0.6); ABS Lymphocytes 0.3 10^3/ul (1.0-4.8); ABS Monocytes 0.7 10^3/ul (0-0.8); ABS Neutrophils 6.4 10^3/ul (1.5-7.7); ABS Nucleated RBC 0 10^3/ul; Eosinophil % 0.1 % (0-6); Lymphocyte % 4.2 % (25-47); Mean Platelet Volume 8.5 um3 (7.4-10.4); Nucleated Red Blood Cells % 0.2; Platelet Count 104 10^3/ul (150-450); Tear Drop Cells 2+
--- NOTE | 2017-11-03 06:49 | PN ---
Progress Note - Progress Note Date of Service: 11/03/17 Note: Pulse 96. Hct 24% He has acute and chronic anemia. Resting quietly in bed and somewhat responsive but not verbal. Does not appear distressed. Right thigh dressing is dry and not tight. Imp: Acute and chronic anemia Plans: 1 unit PRBCs and OOB to chair If he has to ambulate then walker, standby, and weight bearing as tolerated right.
[2017-11-03] MEDS: ceFAZolin 1 GM in Dextrose (*) 1 GM/50 ML BAG IVPB SCH ×2 (07:14→15:45)
[2017-11-03] MEDS: Insulin LISPRO* 1 UNITS UNIT SUBCUT SCH ×4 (09:59→23:15)
[2017-11-03] MEDS: Citalopram TAB* 20 MG PO SCH (09:59)
[2017-11-03] MEDS: Levothyroxine TAB* 50 MCG TAB PO SCH (09:59)
[2017-11-03] MEDS: Losartan TAB* 25 MG PO SCH (09:59)
[2017-11-03] MEDS: Folic Acid TAB* 1 MG PO SCH (09:59)
--- NOTE | 2017-11-03 10:14 | PN ---
Subjective Date of Service: 11/03/17 Interval History: Patient seen and examined at bedside. Pt appears to be comfortable in bed. Mr. Britt is lethargic today and opens his eyes to his name, but quickly drifts back off to sleep. He is also refusing his medications this AM. Family History: Unchanged from Admission Social History: Unchanged from Admission Past Medical History: Unchanged from Admission Objective Active Medications: Acetaminophen (Tylenol Tab*) 975 mg PO Q6H [facility] Citalopram Hydrobromide (Celexa Tab*) 20 mg PO DAILY [facility] Clopidogrel Bisulfate (Plavix Tab*) 75 mg PO DAILY@1200 [facility] Dextrose (D50w Syringe 50 Ml*) 12.5 gm IV PUSH .FOR FS < 60 - SS PRN Reason: FS < 60 Docusate Sodium (Colace Cap*) 100 mg PO BID PRN Reason: CONSTIPATION Folic Acid (Folvite Tab*) 2 mg PO DAILY [facility] Heparin Sodium (Porcine) (Heparin Vial(*)) 5,000 units SUBCUT Q8H [facility] Sodium Chloride (Ns 0.9% 1000 Ml*) 1,000 mls @ 75 mls/hr IV PER RATE [facility] Cefazolin Sodium/Dextrose (Kefzol 1 Gm In Dextrose Duplex (*)) 1 gm in 50 mls @ 200 mls/hr IVPB Q8H [facility] Stop: 11/03/17 15:14 Insulin Human Lispro (Humalog*) 0 units SUBCUT ACHS [facility] Latanoprost (Xalatan 0.005%*) 1 drop BOTH EYES QPM [facility] Levothyroxine Sodium (Synthroid Tab*) 50 mcg PO 0600 [facility] Losartan Potassium (Cozaar Tab*) 25 mg PO DAILY [facility] Morphine Sulfate (Morphine Vial*) 2 mg IV Q4H PRN Reason: PAIN - MILD Oxycodone HCl (Roxycodone Tab*) 5 mg PO Q4H PRN Reason: PAIN - SEVERE Vital Signs - 8 hr 11/03/17 11/03/17 11/03/17 03:58 07:28 09:04 Temperature 98.9 F 98.8 F 99.5 F Pulse Rate 108 106 102 Respiratory 18 28 30 Rate Blood Pressure 142/61 143/54 147/59 (mmHg) O2 Sat by Pulse 99 98 97 Oximetry 11/03/17 09:32 Temperature 99.0 F Pulse Rate 101 Respiratory 30 Rate Blood Pressure 143/56 (mmHg) O2 Sat by Pulse 97 Oximetry Oxygen Devices in Use Now: None Appearance: NAD, laying in bed Respiratory: Symmetrical Chest Expansion and Respiratory Effort, Clear to Auscultation, - - tachypnic Cardiovascular: NL Sounds; No Murmurs; No JVD, RRR Abdominal: NL Sounds; No Tenderness; No Distention Neurological: NL Muscle Strength and Tone, - - Lethargic and confused. Lines/Tubes/Other Access: Clean, Dry and Intact Peripheral IV - site benign Nutrition: Taking PO's Result Diagrams: 11/03/17 05:49 11/03/17 05:50 Additional Lab and Data: Assess/Plan/Problems-Billing Assessment: Mr. Britt is a 77 yo male with PMH significant for DM, s/p AVR, CAD s/p CABG, HTN, HLD, hyperthyroidism, chronic back pain, and dementia who presented to the emergency room after an unfitnesses fall at the SNF. - Patient Problems (1) Closed right hip fracture Code(s): S72.001A - FRACTURE OF UNSP PART OF NECK OF RIGHT FEMUR, INIT SNOMED Code(s): 254668365 Comment: - S/P DHS ORIF, POD #1 - Management per Ortho - Continue pain managment, limit/avoid narcotics if able (2) Anemia Code(s): D64.9 - ANEMIA, UNSPECIFIED SNOMED Code(s): 269106624 Comment: - Acute on chronic secondary to acute blood loss anemia from the hip fracture and surgery - Received 2 units of PRBCs 11/01 - Will get another unit of PRBCs today - Continue to monitor HH (3) Dementia Code(s): F03.90 - UNSPECIFIED DEMENTIA WITHOUT BEHAVIORAL DISTURBANCE SNOMED Code(s): 76862584 Comment: - Confusion is increasing - Suspect post-op delirium (labs WNL, will check a UA to rule out metabolic causes) - Continue celexa - Continue supportive care and limit narcotics (4) Chronic back pain Code(s): M54.9 - DORSALGIA, UNSPECIFIED; G89.29 - OTHER CHRONIC PAIN SNOMED Code(s): 656043331 Comment: - Hx compression FX (5) CAD (coronary artery disease) Code(s): I25.10 - ATHSCL HEART DISEASE OF [place] CORONARY ARTERY W/O ANG PCTRS SNOMED Code(s): 08541140 Comment: - Asymptomatic - History of CABG - Continue Plavix - Resume ASA today, ok with Ortho. Will also resume atorvastatin (6) Diabetes Code(s): E11.9 - TYPE 2 DIABETES MELLITUS WITHOUT COMPLICATIONS SNOMED Code(s) : 59152448 Comment: - Glucose 160-200's - Hold Prandin, resume at discharge - Continue lispro SS (7) HTN (hypertension) Code(s): I10 - ESSENTIAL (PRIMARY) HYPERTENSION SNOMED Code(s): 85381356 Comment: - SBP 130-140's - Continue losartan (8) Hypothyroidism Current Visit: No Code(s): E03.9 - HYPOTHYROIDISM, UNSPECIFIED SNOMED Code(s ): 19694830 Comment: - TSH 8.56 07/2017 - Continue levothyroxine (9) DVT prophylaxis Code(s): AXQ1952 - SNOMED Code(s): 786945759 Comment: - Continue SQ heparin (10) DNR (do not resuscitate) Comment: - New [facility] completed Status and Disposition: Inpatient. Discharge back to SNF after surgery and medically stable.
[2017-11-03] MEDS: Clopidogrel TAB* 75 MG PO SCH (12:50)
[2017-11-03] MEDS: Heparin VIAL(*) 5000 UNITS/ML VIAL (FIVE THOUSAND) SUBCUT SCH ×2 (12:53→20:09)
[2017-11-03] MEDS ORDERED: Bisacodyl SUPP* 10 MG SUPP PR PRN (15:25)
[2017-11-03] MEDS: NS 0.9% 1000 ML* 1,000 ML IV SCH (15:40)
[2017-11-03] MEDS: Acetaminophen SUPP* 650 MG SUPP PR PRN (15:40)
[2017-11-03 15:46] LABS: Urine Appearance Clear; Urine Blood 2+ (Negative); Urine Color Yellow; Urine Ketones 2+ (Negative); Urine Protein 1+(30 mg/dL) (Negative); Urine Urobilinogen Negative (Negative)
[2017-11-03] MEDS: Atorvastatin* 20 MG TAB PO SCH (18:16)
[2017-11-03] MEDS: Latanoprost 0.005%* 2.5 ml BTL BOTH EYES SCH (18:24)
[2017-11-03] MEDS ORDERED: Furosemide IV* 10 MG/ML 2 ML VIAL (20 MG) IV ONE (19:26)
--- NOTE | 2017-11-03 20:03 | RAD ---
Indication: Tachycardia, tachypnea. Single frontal view of the chest performed at 1921 hours was reviewed. Comparison is made with previous exam dated July 29, 2017. Patient is status post tracer thoracotomy. Airspace disease is noted in the upper lobes bilaterally. Blunting of the right costophrenic angle is noted. IMPRESSION: BIAPICAL INFILTRATES AND CHRONIC PLEURAL CHANGES IN THE RIGHT COSTOPHRENIC ANGLE.
[2017-11-04] MEDS: Acetaminophen TAB* 325 MG PO SCH ×4 (00:07→16:54)
[2017-11-04] MEDS: Heparin VIAL(*) 5000 UNITS/ML VIAL (FIVE THOUSAND) SUBCUT SCH ×2 (04:59→18:03)
[2017-11-04] MEDS: NS 0.9% 1000 ML* 1,000 ML IV SCH (05:07)
[2017-11-04 06:00] LABS: Hematocrit 26 % (42-52); Hemoglobin 8.7 g/dl (14.0-18.0); Mean Corpuscular HGB Conc 34 g/dl (31-36); Mean Corpuscular Hemoglobin 26 pg (27-31); Mean Corpuscular Volume 77 fL (80-94); Red Blood Count 3.33 10^6/ul (4.0-5.4); Red Cell Distribution Width 25 % (10.5-15); White Blood Count 5.2 10^3/ul (3.5-10.8)
[2017-11-04 06:24] LABS: ABS Basophils 0 10^3/ul (0-0.2); ABS Eosinophils 0 10^3/ul (0-0.6); ABS Lymphocytes 0.3 10^3/ul (1.0-4.8); ABS Monocytes 0.6 10^3/ul (0-0.8); ABS Neutrophils 4.2 10^3/ul (1.5-7.7); ABS Nucleated RBC 0 10^3/ul; Eosinophil % 0.2 % (0-6); Lymphocyte % 6.4 % (25-47); Mean Platelet Volume 8.4 um3 (7.4-10.4); Nucleated Red Blood Cells % 0.3; Platelet Count 104 10^3/ul (150-450); Tear Drop Cells 2+
[2017-11-04] MEDS: Levothyroxine TAB* 50 MCG TAB PO SCH (06:30)
[2017-11-04] MEDS ORDERED: CELEXA 20 MG PO SCH (09:00)
[2017-11-04] MEDS ORDERED: Aspirin 81 mg CHEW TAB* 81 MG TAB.CHEW PO SCH (09:00)
[2017-11-04] MEDS: Acetaminophen SUPP* 650 MG SUPP PR PRN (09:13)
[2017-11-04] MEDS: Cholecalciferol TAB* 1000 UNITS PO SCH (09:49)
[2017-11-04] MEDS: Folic Acid TAB* 1 MG PO SCH (09:49)
[2017-11-04] MEDS: Losartan TAB* 25 MG PO SCH (09:49)
[2017-11-04] MEDS: Insulin LISPRO* 1 UNITS UNIT SUBCUT SCH ×4 (09:49→21:52)
[2017-11-04] MEDS: Citalopram TAB* 20 MG PO SCH (09:49)
--- NOTE | 2017-11-04 11:09 | PN ---
Progress Note - Progress Note Date of Service: 11/04/17 Note: POD # 2 Unfortunately not responding much. T 99.9. Hct 26%, PLTS 104,000 Hips are flexed and externally rotated. Right leg moved into better posture and no marked distress with this maneuver. Dressing urine soaked and changed. Surgery is clean and dry and all washed with soap and water and redressed with telfa/betadine solution, gauge tape and STEFANO. Some hip swelling and no swelling of the knee, leg, foot. Foot color is fine. Prognosis is guarded. Will decrease the SQ heparin, continue plavix and 81 ASA. Plans: OOB to chair and skin care Will Xray pelvis to check the right hip internal fixation Medical team help is appreciated.
--- NOTE | 2017-11-04 11:25 | PN ---
Subjective Date of Service: 11/04/17 Interval History: Patient seen and examined. Speech at bedside for swallow eval. Patient no longer tachycardic today or tachypneic but it appears WOB remains increased and patient is less responsive. Did not pass swallow eval and is very lethargic even with sternal rub. Family History: Unchanged from Admission Social History: Unchanged from Admission Past Medical History: Unchanged from Admission Objective Active Medications: Acetaminophen (Tylenol Tab*) 975 mg PO Q6H [facility] Last Admin: 11/04/17 06:07 Dose: Not Given Acetaminophen (Tylenol Supp*) 650 mg NC Q4H PRN PRN Reason: FEVER/PAIN Last Admin: 11/04/17 09:13 Dose: 650 mg Aspirin (Aspirin 81 Mg Chew Tab*) 81 mg PO DAILY [facility] Last Admin: 11/04/17 09:49 Dose: Not Given Atorvastatin Calcium (Lipitor*) 20 mg PO QPM [facility] Last Admin: 11/03/17 18:16 Dose: Not Given Bisacodyl (Dulcolax Supp*) 10 mg NC DAILY PRN PRN Reason: CONSTIPATION Cholecalciferol (Vitamin D Tab*) 1,000 units PO DAILY [facility] Last Admin: 11/04/17 09:49 Dose: Not Given Citalopram Hydrobromide (Celexa Tab*) 20 mg PO DAILY [facility] Last Admin: 11/04/17 09:49 Dose: Not Given Clopidogrel Bisulfate (Plavix Tab*) 75 mg PO DAILY@1200 [facility] Last Admin: 11/03/17 12:50 Dose: Not Given Dextrose (D50w Syringe 50 Ml*) 12.5 gm IV PUSH .FOR FS < 60 - SS PRN PRN Reason: FS < 60 Docusate Sodium (Colace Cap*) 100 mg PO BID PRN PRN Reason: CONSTIPATION Folic Acid (Folvite Tab*) 2 mg PO DAILY [facility] Last Admin: 11/04/17 09:49 Dose: Not Given Heparin Sodium (Porcine) (Heparin Vial(*)) 5,000 units SUBCUT Q12H [facility] Sodium Chloride (Ns 0.9% 1000 Ml*) 1,000 mls @ 75 mls/hr IV PER RATE [facility] Last Admin: 11/04/17 05:07 Dose: 75 mls/hr Piperacillin Sod/Tazobactam (Sod 3.375 gm/ Sodium Chloride) 100 mls @ 200 mls/ hr IVPB ONCE ONE Stop: 11/04/17 11:47 Insulin Human Lispro (Humalog*) 0 units SUBCUT ACHS [facility] PRN Reason: Protocol Last Admin: 11/04/17 09:49 Dose: Not Given Latanoprost (Xalatan 0.005%*) 1 drop BOTH EYES QPM [facility] Last Admin: 11/03/17 18:24 Dose: 1 drop Levothyroxine Sodium (Synthroid Tab*) 50 mcg PO 0600 [facility] Last Admin: 11/04/17 06:30 Dose: Not Given Losartan Potassium (Cozaar Tab*) 25 mg PO DAILY [facility] Last Admin: 11/04/17 09:49 Dose: Not Given Morphine Sulfate (Morphine Vial*) 2 mg IV Q4H PRN PRN Reason: PAIN - MILD Last Admin: 11/02/17 09:55 Dose: 2 mg Oxycodone HCl (Roxycodone Tab*) 5 mg PO Q4H PRN PRN Reason: PAIN - SEVERE Pharmacy Consult (Zosyn Per Pharmacy*) 1 note FOLLOW UP .ZOSYN PER PHARMACY [facility] Vital Signs - 8 hr 11/04/17 11/04/17 03:43 07:34 Temperature 99.5 F 98.5 F Pulse Rate 97 100 Respiratory 24 20 Rate Blood Pressure 146/71 146/72 (mmHg) O2 Sat by Pulse 97 99 Oximetry Oxygen Devices in Use Now: None Appearance: lethargic, decreased LOC Ears/Nose/Mouth/Throat: Clear Oropharnyx Neck: NL Appearance and Movements; NL JVP, Trachea Midline Respiratory: Clear to Auscultation Cardiovascular: NL Sounds; No Murmurs; No JVD, RRR, No Edema Abdominal: NL Sounds; No Tenderness; No Distention Extremities: No Edema, No Clubbing, Cyanosis Skin: No Rash or Ulcers Neurological: - - markedly lethargic Nutrition: - - failed swallow, change to NPO Result Diagrams: 11/04/17 05:29 11/03/17 05:50 Additional Lab and Data: Diagnostic Imaging: Patient Name: JAG BRITT Medical Record#: [id number] Ordering Physician: GEOVANNA Green Acct.#: [id number] : 1940 Age: 77 Sex: M Location: SURGICAL STAY UNIT Exam Date: 11/03/17 1834 ADM Status: ADM IN Order Information: CHEST AP PORTABLE Accession Number: [id number] CPT: 95242 Indication: Tachycardia, tachypnea. Single frontal view of the chest performed at 1921 hours was reviewed. Comparison is made with previous exam dated July 29, 2017. Patient is status post tracer thoracotomy. Airspace disease is noted in the upper lobes bilaterally. Blunting of the right costophrenic angle is noted. IMPRESSION: BIAPICAL INFILTRATES AND CHRONIC PLEURAL CHANGES IN THE RIGHT COSTOPHRENIC ANGLE. <Electronically signed by Rafaela Martinez MD in OV> 11/03/171999 Dictated By: Rafaela Martinez MD Dictated Date/Time: 11/03/171999 Transcribed Date/Time: 11/03/171958 Copy to: CC:Brown Lua MD; Bill Baron MD; Colette Green NP; Sonya Baird MD; No Primary Care Phys,NOPCP Imaging - [facility] Imaging - [facility] Imaging - [facility] [address] [address] ph ([phone]) ph ([phone]) ph ([phone]) Assess/Plan/Problems-Billing Assessment: Mr. Britt is a 77 yo male with PMH significant for DM, s/p AVR, CAD s/p CABG, HTN, HLD, hyperthyroidism, chronic back pain, and dementia who presented to the emergency room after an unwitnessed fall at the SNF, s/p ORIF right hip fx. - Patient Problems (1) Closed right hip fracture Code(s): S72.001A - FRACTURE OF UNSP PART OF NECK OF RIGHT FEMUR, INIT SNOMED Code(s): 456018462 Comment: - S/P DHS ORIF, POD2 - POC as per Ortho, dressing changed today - Tylenol NC, as patient is not swallowing - Patient flexing right hip and will have repeat xray to assure he is not displaced. (2) Dysphagia Code(s): R13.10 - DYSPHAGIA, UNSPECIFIED SNOMED Code(s): 42011875 Comment: - Etiology unclear: dementia, metobolic post-op delerium, UTI and CVA in the differential - Failed swallow eval - Keep NPO and head CT - Will cover with zosyn, concern for early aspiration/pneumonitis - Follow cultures (3) Anemia Code(s): D64.9 - ANEMIA, UNSPECIFIED SNOMED Code(s): 522440619 Comment: - Acute on chronic secondary to acute blood loss anemia from the hip fracture and surgery - Received 3 units of PRBCs total - H&H stable (4) TIA (transient ischemic attack) Comment: - History of TIA in july - Will repeat head CT given neurologic focalities today (5) CAD (coronary artery disease) Code(s): I25.10 - ATHSCL HEART DISEASE OF [place] CORONARY ARTERY W/O ANG PCTRS SNOMED Code(s): 12618908 Comment: - History of CABG - Hold ASA and plavix, platelets low and patient not swallowing - Continue heparin at BID dosing, cleared with Dr. Lua (6) Chronic back pain Code(s): M54.9 - DORSALGIA, UNSPECIFIED; G89.29 - OTHER CHRONIC PAIN SNOMED Code(s): 853444797 Comment: - Hx compression FX (7) Dementia Code(s): F03.90 - UNSPECIFIED DEMENTIA WITHOUT BEHAVIORAL DISTURBANCE SNOMED Code(s): 94072578 Comment: - Per notes, confusion increasing yesterday, post-op delerium/metabolic vs other pathologic cause (CVA, aspiration, UTI?) - Today with markedly lethargy - Follow urine culture, CT head now, will cover with zosyn, CXR with apical infiltrates but lungs are clear and patient is afebrile - Not swallowing today, keep NPO to protect airway (8) Diabetes Code(s): E11.9 - TYPE 2 DIABETES MELLITUS WITHOUT COMPLICATIONS SNOMED Code(s) : 47254006 Comment: - Glucose 160-200's - Hold Prandin, resume at discharge if patient swallowing - Continue lispro SS (9) HTN (hypertension) Code(s): I10 - ESSENTIAL (PRIMARY) HYPERTENSION SNOMED Code(s): 58955039 Comment: - SBP 130-140's - Continue losartan (10) Hypothyroidism Code(s): E03.9 - HYPOTHYROIDISM, UNSPECIFIED SNOMED Code(s): 67374770 Comment: - TSH 8.56 07/2017 - Continue levothyroxine (11) DVT prophylaxis Current Visit: Yes Status: Acute Code(s): COU6365 - SNOMED Code(s): 958286534 Comment: - Continue SQ heparin, decrease to BID given low platelets (12) DNR (do not resuscitate) Comment: - MOLST updated on 11/02 Status and Disposition: Inpatient. Discharge back to SNF after surgery and medically stable.
[2017-11-04] MEDS ORDERED: Piperacillin/Tazobac ADVAN(*) 3.375 GM in NS 0.9% 100 ML* 100 ML IVPB ONE (12:00)
[2017-11-04] MEDS ORDERED: Zosyn per Pharmacy* NOTE FOLLOW UP SCH (12:00)
--- NOTE | 2017-11-04 12:08 | RAD ---
INDICATION: Altered mental status. COMPARISON: Comparison is made with a prior CT of the brain from October 31, 2017. TECHNIQUE: Contiguous axial sections of the brain were obtained from the skull base to the vertex without contrast. FINDINGS: The ventricles, cisterns and sulci are enlarged consistent with diffuse atrophy. There are multiple focal areas of decreased density in the subcortical and periventricular white matter suggestive of moderate chronic small vessel ischemic changes. In addition there is a moderate to large area of decreased density involving the cortex and subcortical white matter of the posterior left temporal and parietal lobes most consistent with a subacute infarct involving the posterior cerebral artery distribution. No hemorrhage is seen. There is local mass effect with effacement of the sulci. This is a new finding from the prior study. There is also an old lacunar infarct in the left periventricular white matter. No significant focal osseous abnormality is seen. The visualized portion of the paranasal sinuses and mastoid air cells appear clear. The results of this exam were discussed with the referring clinician. 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
[2017-11-04] MEDS ORDERED: PREMIX* 0 ML with Acetaminophen IV 1GM/100ML * 1,000 MG IVPB ONE ×2 (12:30)
[2017-11-04] MEDS: Clopidogrel TAB* 75 MG PO SCH (13:05)
[2017-11-04] MEDS ORDERED: Acetaminophen IV 1GM/100ML * 100 ML ONE (13:18)
--- NOTE | 2017-11-04 15:36 | RAD ---
Indication: Shortness of breath. There is likely xenon-133 was administered by mask. 9.7 mCi was given. Approximately 6.2 mCi of technetium 99m macroaggregated albumin. Ventilation lung scan demonstrates no evidence of air trapping. Perfusion lung scan demonstrates no definite segmental or subsegmental perfusion defects identified. Prior chest x-ray demonstrates infiltrate in the left upper lobe. IMPRESSION: No evidence of ventilation or perfusion mismatches to suggest pulmonary embolus. This is low probability scan for pulmonary embolus.
[2017-11-04] MEDS: Aspirin SUPP* 300 MG PR SCH (16:01)
--- NOTE | 2017-11-04 16:07 | CONS ---
NEUROLOGY CONSULTATION: DATE OF CONSULT: 11/04/17 REASON FOR CONSULT: Subacute stroke. HISTORY OF PRESENT ILLNESS: Rafa Britt is a 77-year-old man with extensive past medical history including advanced dementia and multiple vascular risk factors including coronary artery disease status post CABG in 2010, hypertension , hyperlipidemia, and type 2 diabetes who was admitted to the hospital on after a fall at his skilled nursing. He was subsequently found to have a right hip fracture and underwent an ORIF on 11/02/17. I was contacted by Effie Pitts late this morning, when a CT of the brain revealed subacute infarcts in the left hemisphere. This CT scan was obtained secondary to altered mental status over the past 24 hours as well as apparent development of swallowing difficulties. I came to see the patient emergently and in speaking with the nurse, she reports that he was actually less responsive yesterday than he is today. He appears more alert to her today than yesterday. As such, it is difficult to know exactly when these stroke symptoms began. According to Sharron Vogt's history and physical from 10/31/17, Sharron had spoken with the patient's who indicated that Mr. Britt's dementia had progressed significantly over the past 6 months. He had reportedly had a hospitalization at [facility] on 10/03/17 for a slurred speech. He was evaluated for a stroke or TIA and it was felt that he had not experienced either and was diagnosed with vascular dementia and then discharged from the hospital to [facility] in [place]. He apparently had also been taken off multiple medications during his hospitalization in [place] including Lyrica, Fentanyl patch, and clonidine. He had been started on Seroquel, but this apparently was discontinued at the skilled nursing. According to his home medication list, he was on aspirin and Plavix prior to his admission. It does appear that Plavix has been reordered since his surgery, but it does not appear that he has received it. The MAR indicates that he had declined Plavix, and aspirin was just reordered this morning. At the time of my evaluation, the patient is not able to contribute to the history at all given that he is currently nonverbal. PAST MEDICAL HISTORY: Sinus bradycardia; hypothyroidism; left bundle branch block; coronary artery disease, status post CABG in 2010; blood loss anemia, status post aortic valve replacement in 2010; type 2 diabetes; hypertension; hyperlipidemia; hypothyroidism; chronic back pain; history of squamous cell carcinoma of the head and neck, status post resection and radiation in 2015 and 2016, followed in [place]; spinal stenosis; carpal tunnel syndrome; and obstructive sleep apnea. CURRENT MEDICATIONS: 1. Tylenol 650 [place] q.4 p.r.n. 2. Aspirin 81 mg daily. 3. Atorvastatin 20 mg q.p.m. 4. Bisacodyl as needed. 5. Vitamin D 1000 units daily. 6. Celexa 20 mg daily. 7. Plavix 75 mg daily. 8. Colace 100 mg b.i.d. p.r.n. 9. Folic acid 2 mg daily. 10. Heparin 5000 units q.12 hours. 11. Humalog as needed. 12. Xalatan drops. 13. Levothyroxine 50 mcg daily. 14. Cozaar 25 mg daily. 15. Morphine 2 mg IV q.4 p.r.n. 16. Oxycodone 5 mg q.4 p.r.n. The patient last received morphine on 11/02/17. It does not appear he has received any other opiates recently. Please note that all of his oral medications that are ordered has not been given secondary to his clinical status essentially since his admission. ALLERGIES: DIAZEPAM, CONTRAST DYE which causes nausea reportedly, SULFA, TIMOLOL FAMILY HISTORY: Father with diabetes and hypertension. SOCIAL HISTORY: He is a past smoker. Alcohol or drug use is unknown. He has most recently been residing at [facility] in [place]. REVIEW OF SYSTEMS: Not obtainable from the patient. PHYSICAL EXAM: Vital Signs: Temperature 98.5, blood pressure 146/72, heart rate 100, oxygen saturation 99% on room air. On general examination, he is lying in his hospital bed with his eyes open, with his mouth hanging open. He does occasionally direct his gaze towards the examiner. He is nonverbal. When he does attempt to speak or to smile, he does not activate his right face. His heart is in a regular, rate, and rhythm with no clear murmurs. I did not auscultate any carotid bruits, but he is not able to hold his breath for this exam. His lung sounded clear anteriorly. His right lower extremity is externally rotated at the hip and flexed at the knee. There is no significant lower extremity edema. On neurologic examination, he does not follow commands to close his eyes or protrude his tongue. When asked his name, he appears to be attempting to speak, but does not do so. His gaze is midline. Pupils were equal, round, and reactive from 3 to 2 mm bilaterally. His oculocephalic reflex was intact. There is no blink to threat in the right visual field. His face appears symmetric at rest, though when he activates he does so on the left but not the right side. On motor examination, he is flaccid in the right upper extremity. There is no withdrawal no noxious stimulation in the right arm and he does not hold at antigravity at all. He is able to lift the left arm and leg antigravity. He does withdraw to noxious stimulation in the right lower extremity, but I did not manipulate this leg much secondary to his recent surgery. His NIH stroke scale is at least 17, though again it was not possible to completely assess his right lower extremity. DIAGNOSTIC STUDIES/LAB DATA: CBC showed a white count of 5.2, hemoglobin 8.7, hematocrit 26, platelet count of 104 which is down from 130 two days ago and from 179 on 10/31/17. His INR is 1.27. Chemistry panel is not repeated today, but yesterday showed a CO2 of 20, anion gap of 14, glucose of 166, and his most recent glucose at 8:30 this morning was 178. Creatinine 0.67, BUN 10, calcium of 8. Urinalysis yesterday showed 2+ ketones, 2+ blood; but no leukocyte esterase or nitrites, trace wbc's. His brain CT obtained this morning was personally reviewed and shows hypodensity in the left occipital lobe as well as posterior temporal lobe and into the left parietal lobe. Based on the CT, this most likely involves both the left TUCK POINTER and MCA distributions. Formal radiology report indicates that it is felt to involve only the posterior cerebral artery distribution, but based on the parietal lobe involvement, I think it may be more than one vessel. I also reviewed his noncontrast brain CT from 10/31/17, where there does appear to be a subacute hypodensity in the left posterior white matter in the temporal lobe which was not present on a July [address] The formal radiology report indicates that there is central and cortical atrophy with periventricular lucency consistent with chronic ischemic white matter change, though the evaluation was felt to be limited secondary to motion artifact. IMPRESSION: Rafa Britt is a 77-year-old man with multiple complex medical problems including advanced dementia as well as multiple vascular risk factors who today on CT scan was found to have significant territories of infarction involving the left occipital lobe as well as posterior temporal lobe likely extending into the left parietal lobe. I think there is some evidence of this on his admission CT scan as well though this is in retrospect. On exam, he has a right arm and face weakness as well as right homonymous hemianopsia. It is difficul to assess with any certainty how much of his mental status is related to this stroke versus his dementia and/or delirium related to being in the hospital. Unfortunately, there are no interventions available to him such as TPA given the uncertain time of onset as well as his recent major surgery. Furthermore, he would not be a candidate for any endovascular therapy if a large vessel occlusion was discovered secondary to the presence of evolving infarcts on CT scan as well as his overall medical history and current functional status. We will further evaluate with MRI of the brain as well as MRA of the head and neck later today. The patient is not going to undergo a CT angiogram secondary to his apparent allergy to dye. He is going to be transferred to the 4th floor stroke unit and should undergo close monitoring on telemetry given the possibility of 2 vascular distributions being involved in this current stroke. However, I am not sure given his overall functional status if he would be considered an adequate candidate for anticoagulation. We will check his lipids as well as hemoglobin A1c and transthoracic echocardiogram with bubble study. I can discuss with his going forward her goals of care considering his overall health status. At this point, we should place him on rectal aspirin. [id number]/[facility] #: [id number] [facility]
--- NOTE | 2017-11-04 16:20 | RAD ---
Indication: Intertrochanteric fracture of the right hip. Single view of the pelvis demonstrates dynamic compression screw in the fixating a intertrochanteric fracture. IMPRESSION: Internal fixation intertrochanteric fracture of the right hip.
[2017-11-04 16:34] LABS: Hematocrit 27 % (42-52)
[2017-11-04] MEDS: Atorvastatin* 20 MG TAB PO SCH (16:54)
--- NOTE | 2017-11-04 17:05 | ECHO ---
Patient: JAG [facility] Rec#: [id number] : 1940 Date: 11/04/2017 Age: 77y Height: 172.72 cm / 68.0 in Weight: 63.5 kg / 140.0 lbs Sex: M BSA: 1.76 Room#: 435 Admit Date#: 10/31/2017 Type: Inpatient Referring: Shae Sharma Reading: Mehdi Petty MD [place] Regulator: Charlotte VazquezRDCS,RDMS Transthoracic Echocardiogram Indication: CVA BP: 146/72 HR: 90 Rhythm: NSR Findings History: Advanced dementia, CAD, CABG, AVR and TAVR, DM, HTN HLD Technical Comments: The study quality is poor. The study is technically limited due to poor acoustic windows. The study is technically limited due to poor parasternal windows. The study is technically limited due to poor apical windows. Left Ventricle: The left ventricular chamber size is normal. Mild concentric left ventricular hypertrophy is observed. There are multiple regional wall motion abnormalities. There is marked hypokinesis as well as dyskinesis to the interventricular septum apex and mid to distal posterolateral wall. The anterior wall is severely hypokinetic. The only area with fairly normal contracility is the proximal to mid low posterolateral wall (seen in the apical 3 chamber view). There is moderate to severely decreased left ventricular systolic function. The estimated ejection fraction is 25-30%. The assessment of diastolic function is non-diagnostic. The patient was unable to perform a Valsalva maneuver. Left Atrium: The left atrium is mildly dilated. Right Ventricle: The right ventricular chamber size and systolic function are within normal limits. Right Atrium: The right atrial cavity size is normal. The bubble study is negative.No evidence for right to left shunting as best as could be assessed given an uncooperative patient. Aortic Valve: The aortic valve structure is not well visualized. There is no evidence of aortic regurgitation. The mean gradient of the aortic valve is 10.5 mmHg. The dimensionless index was .46 The aortic valve area, by peak velocities, is calculated at 1.1 cm2. A bio-prosthetic aortic valve is present. Mitral Valve: The mitral valve leaflets are mildly thickened. There is mild mitral regurgitation. There is no evidence of mitral stenosis. Tricuspid Valve: The tricuspid valve leaflets are normal. There is no evidence of tricuspid valve regurgitation. Unable to estimate the right ventricular systolic pressure. Pulmonic Valve: The pulmonic valve structure is not well visualized. Pericardium: There is no significant pericardial effusion. Aorta: The ascending aorta is not well visualized. There is no dilatation of the aortic arch. The aortic root is normal in size. Pulmonary Artery: The main pulmonary artery is not well visualized. Venous: The inferior vena cava appears normal in size. There is a greater than 50% respiratory change in the inferior vena cava dimension. Contrast: Intravenous agitated saline contrast was used to assess intracardiac shunting. Conclusions The study is technically limited due to poor acoustic windows. The patient was combative throughout the study. Mild concentric left ventricular hypertrophy is observed. There are multiple regional wall motion abnormalities as described above. There is moderate to severely decreased left ventricular systolic function. The estimated ejection fraction is 25-30%. The bubble study is negative. The bubble study is negative.No evidence for right to left shunting as best as could be assessed given an uncooperative patient. The aortic valve structure is not well visualized. A bio-prosthetic aortic valve is present. The mean gradient of the aortic valve is 10.5 mmHg. The dimensionless index does not suggest significant stenosis of the valve. There is mild mitral regurgitation. Compared to report of study from 07/30/2015, the overall LV systolic function is significantly worse (was reported to be LVEF 50-55%), the mean gradient across the bioprosthetic valve is mildly increased (was 7.2 mm hg) . Measurements Name Value Normal Range RVIDd (AP) 2D 2.6 cm (0.9 - 2.6) RVDdMajor (2D) 3.4 cm (2.2 - 4.4) RAd ISD 4CH 4 cm (3.4 - 4.9) RA (A4C)W 4.2 cm (2.9 - 4.6) IVSd (2D) 1.1 cm (0.6 - 1) LVPWd (2D) 1.3 cm (0.6 - 1) LVIDd (2D) 5.3 cm (3.6 - 5.4) LVIDs (2D) 3.6 cm - LV FS (2D) 31 % (25 - 45) Aortic Annulus 2 cm (1.4 - 2.6) Ao root diameter (2D) 2.7 cm (2.1 - 3.5) Aortic arch 2.5 cm (1.8 - 3.4) LA dimension (AP) 2D 3.8 cm (2.3 - 3.8) LAd ISD 4CH 5.2 cm (2.9 - 5.3) LA ISD 4CH W 4.2 cm (2.5 - 4.5) Name Value Normal Range LA ESV SP 4CH (A/L) 63.2 ml - LA ESV SP 2CH (A/L) 68.73 ml - LA ESV BP (A/L) 67.38 ml - LA ESV BP (A/L) index 38 ml/m2 - LA ESV SP 4CH (MOD) 58.14 ml - LA ESV SP 2CH (MOD) 64.51 ml - Name Value Normal Range MV E-wave Vmax 1.5 m/sec - MV deceleration time 129 msec - LV lateral e' Vmax 0.17 m/sec - LV E:e' lateral ratio 9 ratio - Name Value Normal Range AV Vmax 2.5 m/sec - AV VTI 37 cm - AV peak gradient 25 mmHg - AV mean gradient 10.5 mmHg - LVOT diameter 2 cm - LVOT Vmax 0.9 m/sec - LVOT VTI 17.2 cm - LVOT peak gradient 3.2 mmHg - LVOT mean gradient 1.5 mmHg - DOI (VTI) 0.5 ratio - SV LVOT 54.65 ml - ZA (continuity Vmax) 1.1 cm2 - ZA (continuity VTI) 1.5 cm2 - MINOO Vmax 0.7 m/sec - Name Value Normal Range MV Vmax 1.8 m/sec - MV VTI 24 cm - MV peak gradient 13 mmHg - MV mean gradient 5.7 mmHg - MVA (continuity VTI) 2.3 cm2 - Name Value Normal Range RAP 8 mmHg - IVC diameter 1.5 cm - Name Value Normal Range PV Vmax 0.6 m/sec - PV peak gradient 1.4 mmHg -
[2017-11-04] MEDS: Latanoprost 0.005%* 2.5 ml BTL BOTH EYES SCH (18:03)
[2017-11-04] MEDS ORDERED: Gadoteridol* (CONTRAST) 279.3 MG/ML 10 ML IV ONE (19:37)
[2017-11-04] MEDS: Piperacillin/Tazobactam 13.5 GM IV 24 hour continuous infusion IVPB SCH ×2 (21:34)
--- NOTE | 2017-11-04 21:42 | RAD ---
Indication: Stroke. MRA of the head was performed utilizing 3-D [id number]-od-[id number] technique. Motion artifact degrades the images. There is no flow noted in the left intracranial carotid artery. The intracavernous portions is unremarkable. The right internal carotid artery demonstrates flow. No aneurysmal dilatation is noted. The basilar artery and posterior cerebral arteries are unremarkable. IMPRESSION: Occluded left internal carotid artery with no flow detected in the intracranial carotid artery on the left.
--- NOTE | 2017-11-04 21:46 | RAD ---
Indication: Stroke. Contrast: 15 mL of MultiHance was injected intravenously. MRA of the neck was performed utilizing 3-D vlcj-lo-actupw technique as well as coronal gradient echo postcontrast images. Multiple maximum intensity projection images were obtained. The common carotid arteries bilaterally are patent. The right internal carotid artery appears patent. The left internal carotid artery appears to be occluded at its origin. External carotid artery is otherwise unremarkable. The origins of the great vessels are grossly unremarkable. IMPRESSION: There appears to be occlusion of the left internal carotid artery at its origin.
--- NOTE | 2017-11-04 21:50 | RAD ---
Indication: Stroke. Image sequences: Sagittal and axial T1, axial T2, FLAIR, diffusion and susceptibility weighted images of the brain were obtained. Ventricular structures are midline. No midline shift is noted. There is central and cortical atrophy noted. There is a moderate-sized area of restriction of diffusion involving the left posterior temporal lobe extending into the left parietal lobe. This is consistent with acute infarct. Additionally there appears to be smaller areas of restriction of diffusion involving the periventricular white matter on the left, into the left temporal lobe as well as scattered punctate areas of restriction of diffusion in the right centrum semiovale and right splenium of the corpus callosum. The posterior fossa demonstrates no restriction of diffusion. The brainstem is grossly unremarkable. IMPRESSION: Moderate-sized area of restriction of diffusion involving the left posterior temporal lobe extending into the parietal lobe. Other punctate areas of restriction of diffusion is noted in the left and right periventricular white matter as well as in the right splenium of the corpus callosum.
[2017-11-05] MEDS: Acetaminophen TAB* 325 MG PO SCH ×4 (00:13→17:44)
[2017-11-05] MEDS: Acetaminophen SUPP* 650 MG SUPP PR PRN ×3 (00:25→22:31)
[2017-11-05] MEDS: Heparin VIAL(*) 5000 UNITS/ML VIAL (FIVE THOUSAND) SUBCUT SCH ×2 (04:54→17:46)
[2017-11-05] MEDS: Levothyroxine TAB* 50 MCG TAB PO SCH (05:25)
[2017-11-05 08:10] LABS: Monocytes % 5 % (0-7); Schistocytes 1+; Tear Drop Cells 1+
[2017-11-05 08:13] LABS: Hematocrit 24 % (42-52); Hemoglobin 8.1 g/dl (14.0-18.0); Mean Corpuscular Volume 76 fL (80-94); Red Blood Count 3.15 10^6/ul (4.0-5.4); White Blood Count 4.1 10^3/ul (3.5-10.8)
[2017-11-05 08:14] LABS: Mean Corpuscular HGB Conc 34 g/dl (31-36); Mean Corpuscular Hemoglobin 26 pg (27-31); Mean Platelet Volume 8.4 um3 (7.4-10.4); Platelet Count 95 10^3/ul (150-450); Red Cell Distribution Width 24 % (10.5-15)
[2017-11-05] MEDS: Citalopram TAB* 20 MG PO SCH (08:17)
[2017-11-05] MEDS: Insulin LISPRO* 1 UNITS UNIT SUBCUT SCH ×3 (08:17→17:44)
[2017-11-05] MEDS: Cholecalciferol TAB* 1000 UNITS PO SCH (08:17)
[2017-11-05] MEDS: Folic Acid TAB* 1 MG PO SCH (08:18)
[2017-11-05] MEDS: Losartan TAB* 25 MG PO SCH (08:18)
[2017-11-05] MEDS: Aspirin SUPP* 300 MG PR SCH (10:40)
[2017-11-05] MEDS: NS 0.9% 1000 ML* 1,000 ML IV SCH (11:07)
--- NOTE | 2017-11-05 12:04 | PN ---
Progress Note - Progress Note Date of Service: 11/05/17 Note: Orthopedics: Hct 24%. Temp 99.5. BP/Pulse have some instability. He has had strokes, especially left. Right hip dressing is not blood soaked and was changed early today. Right thigh no marked swelling. He is holding both hips and knees flexed and hips externally rotated and this is OK Imp: Hip surgery is OK and yesterdays right hip x-ray was all OK. Plans: Continue right hip dressing changes and washes as needed. Continue skin care of sacrum and heels OOB chair once able ASA 300 mg per rectum daily.
[2017-11-05] MEDS: Clopidogrel TAB* 75 MG PO SCH (12:55)
--- NOTE | 2017-11-05 14:38 | PN ---
Subjective Date of Service: 11/05/17 Interval History: Patient seen and examined. More awake today but still with RUE weakness. Not verbalizing but appears to follow some simple commands. Family History: Unchanged from Admission Social History: Unchanged from Admission Past Medical History: Unchanged from Admission Objective Active Medications: Acetaminophen (Tylenol Tab*) 975 mg PO Q6H [facility] Last Admin: 11/05/17 12:55 Dose: Not Given Acetaminophen (Tylenol Supp*) 650 mg MN Q4H PRN PRN Reason: FEVER/PAIN Last Admin: 11/05/17 04:53 Dose: 650 mg Aspirin (Asa Supp*) 300 mg MN DAILY [facility] Last Admin: 11/05/17 10:40 Dose: 300 mg Atorvastatin Calcium (Lipitor*) 20 mg PO QPM [facility] Last Admin: 11/04/17 16:54 Dose: Not Given Bisacodyl (Dulcolax Supp*) 10 mg MN DAILY PRN PRN Reason: CONSTIPATION Cholecalciferol (Vitamin D Tab*) 1,000 units PO DAILY [facility] Last Admin: 11/05/17 08:17 Dose: Not Given Citalopram Hydrobromide (Celexa Tab*) 20 mg PO DAILY [facility] Last Admin: 11/05/17 08:17 Dose: Not Given Clopidogrel Bisulfate (Plavix Tab*) 75 mg PO DAILY@1200 [facility] Last Admin: 11/05/17 12:55 Dose: Not Given Dextrose (D50w Syringe 50 Ml*) 12.5 gm IV PUSH .FOR FS < 60 - SS PRN PRN Reason: FS < 60 Docusate Sodium (Colace Cap*) 100 mg PO BID PRN PRN Reason: CONSTIPATION Folic Acid (Folvite Tab*) 2 mg PO DAILY [facility] Last Admin: 11/05/17 08:18 Dose: Not Given Heparin Sodium (Porcine) (Heparin Vial(*)) 5,000 units SUBCUT Q12H [facility] Last Admin: 11/05/17 04:54 Dose: 5,000 units Sodium Chloride (Ns 0.9% 1000 Ml*) 1,000 mls @ 75 mls/hr IV PER RATE [facility] Last Admin: 11/05/17 11:07 Dose: 75 mls/hr Piperacillin Sod/Tazobactam (Sod 13.5 gm/ Sodium Chloride) 500 mls @ 20.833 mls /hr IVPB Q24H [facility] Last Admin: 11/04/17 21:34 Dose: 20.833 mls/hr Insulin Human Lispro (Humalog*) 0 units SUBCUT ACHS [facility] PRN Reason: Protocol Last Admin: 11/05/17 12:54 Dose: Not Given Latanoprost (Xalatan 0.005%*) 1 drop BOTH EYES QPM [facility] Last Admin: 11/04/17 18:03 Dose: 1 drop Levothyroxine Sodium (Synthroid Tab*) 50 mcg PO 0600 [facility] Last Admin: 11/05/17 05:25 Dose: Not Given Losartan Potassium (Cozaar Tab*) 25 mg PO DAILY [facility] Last Admin: 11/05/17 08:18 Dose: Not Given Morphine Sulfate (Morphine Vial*) 2 mg IV Q4H PRN PRN Reason: PAIN - MILD Last Admin: 11/02/17 09:55 Dose: 2 mg Oxycodone HCl (Roxycodone Tab*) 5 mg PO Q4H PRN PRN Reason: PAIN - SEVERE Pharmacy Consult (Zosyn Per Pharmacy*) 1 note FOLLOW UP .ZOSYN PER PHARMACY [facility] Vital Signs - 8 hr 11/05/17 11/05/17 11/05/17 08:00 08:07 11:51 Temperature 99.1 F 98.2 F Pulse Rate 66 83 Respiratory 24 24 24 Rate Blood Pressure 147/48 149/58 (mmHg) O2 Sat by Pulse 96 100 Oximetry Oxygen Devices in Use Now: Nasal Cannula Appearance: alert, with periods of sleepiness Eyes: PERRLA Ears/Nose/Mouth/Throat: Mucous Membranes Moist Neck: Trachea Midline Respiratory: Symmetrical Chest Expansion and Respiratory Effort, Clear to Auscultation Cardiovascular: NL Sounds; No Murmurs; No JVD, RRR, No Edema Abdominal: NL Sounds; No Tenderness; No Distention Skin: - - dressing CDI Neurological: - - non-verbal, dementia at baseline, dysphagia, RUE flaccid Nutrition: - - dysphagia, pending re-eval with Speech Result Diagrams: 11/05/17 06:28 11/03/17 05:50 Additional Lab and Data: Microbiology and Other Data: Microbiology 11/03/17 15:30 Urine Culture - Final Urine No Growth (<1,000 CFU/mL) Diagnostic Imaging: Patient Name: JAG BRITT Medical Record#: [id number] Ordering Physician: GEOVANNA Green Acct.#: [id number] : 1940 Age: 77 Sex: M Location: SURGICAL STAY UNIT Exam Date: 11/03/17 1834 ADM Status: ADM IN Order Information: CHEST AP PORTABLE Accession Number: [id number] CPT: 46390 Indication: Tachycardia, tachypnea. Single frontal view of the chest performed at 1921 hours was reviewed. Comparison is made with previous exam dated July 29, 2017. Patient is status post tracer thoracotomy. Airspace disease is noted in the upper lobes bilaterally. Blunting of the right costophrenic angle is noted. IMPRESSION: BIAPICAL INFILTRATES AND CHRONIC PLEURAL CHANGES IN THE RIGHT COSTOPHRENIC ANGLE. <Electronically signed by Rafaela Martinez MD in OV> 11/03/171999 Dictated By: Rafaela Martinez MD Dictated Date/Time: 11/03/171999 Transcribed Date/Time: 11/03/171958 Copy to: Patient Name: JAG BRITT Medical Record#: [id number] Ordering Physician: Effie Pitts NP Acct.#: [id number] : 1940 Age: 77 Sex: M Location: [address] [place] [address]/TELEMETRY Exam Date: 11/04/17 1406 ADM Status: ADM IN Order Information: NM LUNG PERFUSION W/VENTILATIO Accession Number: [id number] CPT: 02337 Indication: Shortness of breath. There is likely xenon-133 was administered by mask. 9.7 mCi was given. Approximately 6.2 mCi of technetium 99m macroaggregated albumin. Ventilation lung scan demonstrates no evidence of air trapping. Perfusion lung scan demonstrates no definite segmental or subsegmental perfusion defects identified. Prior chest x-ray demonstrates infiltrate in the left upper lobe. IMPRESSION: No evidence of ventilation or perfusion mismatches to suggest pulmonary embolus. This is low probability scan for pulmonary embolus. <Electronically signed by Rafaela Martinez MD in OV> 11/04/17 153 Dictated By: Rafaela Martinez MD Dictated Date/Time: 11/04/17 1533 Transcribed Date/Time: 11/04/17 1528 Copy to: CARDIAC ECHO Conclusions: The study is technically limited due to poor acoustic windows. The patient was combative throughout the study. Mild concentric left ventricular hypertrophy is observed. There are multiple regional wall motion abnormalities as described above. There is moderate to severely decreased left ventricular systolic function. The estimated ejection fraction is 25-30%. The bubble study is negative. The bubble study is negative.No evidence for right to left shunting as best as could be assessed given an uncooperative patient. The aortic valve structure is not well visualized. A bio-prosthetic aortic valve is present. The mean gradient of the aortic valve is 10.5 mmHg. The dimensionless index does not suggest significant stenosis of the valve. There is mild mitral regurgitation. Compared to report of study from 07/30/2015, the overall LV systolic function is significantly worse (was reported to be LVEF 50-55%), the mean gradient across the bioprosthetic valve is mildly increased (was 7.2 mm hg) . Patient Name: JAG BRITT Medical Record#: [id number] Ordering Physician: Effie Pitts NP Acct.#: [id number] : 1940 Age: 77 Sex: M Location: [address] [place] [address] MEDICAL/TELEMETRY Exam Date: 11/04/17 1232 ADM Status: ADM IN Order Information: MRI BRAIN W/O Accession Number: [id number] CPT: 91017 Indication: Stroke. Image sequences: Sagittal and axial T1, axial T2, FLAIR, diffusion and susceptibility weighted images of the brain were obtained. Ventricular structures are midline. No midline shift is noted. There is central and cortical atrophy noted. There is a moderate-sized area of restriction of diffusion involving the left posterior temporal lobe extending into the left parietal lobe. This is consistent with acute infarct. Additionally there appears to be smaller areas of restriction of diffusion involving the periventricular white matter on the left, into the left temporal lobe as well as scattered punctate areas of restriction of diffusion in the right centrum semiovale and right splenium of the corpus callosum. The posterior fossa demonstrates no restriction of diffusion. The brainstem is grossly unremarkable. IMPRESSION: Moderate-sized area of restriction of diffusion involving the left posterior temporal lobe extending into the parietal lobe. Other punctate areas of restriction of diffusion is noted in the left and right periventricular white matter as well as in the right splenium of the corpus callosum. <Electronically signed by Rafaela Martinez MD in OV> 11/04/172146 Dictated By: Rafaela Martinez MD Dictated Date/Time: 11/04/172146 Transcribed Date/Time: 11/04/172142 Copy to: MRA HEAD/NECK: Patient Name: JAG BRITT Medical Record#: [id number] Ordering Physician: Effie Pitts NP Acct.#: [id number] : 1940 Age: 77 Sex: M Location: [address] [place] [address]/TELEMETRY Exam Date: 11/04/17 123 ADM Status: ADM IN Order Information: MRA HEAD W/O Accession Number: [id number] CPT: 34410 Indication: Stroke. MRA of the head was performed utilizing 3-D mwam-oi-dogmbl technique. Motion artifact degrades the images. There is no flow noted in the left intracranial carotid artery. The intracavernous portions is unremarkable. The right internal carotid artery demonstrates flow. No aneurysmal dilatation is noted. The basilar artery and posterior cerebral arteries are unremarkable. IMPRESSION: Occluded left internal carotid artery with no flow detected in the intracranial carotid artery on the left. <Electronically signed by Rafaela Martinez MD in OV> 11/04/172137 Dictated By: Rafaela Martinez MD Dictated Date/Time: 11/04/172137 Transcribed Date/Time: 11/04/172136 Copy to: Assess/Plan/Problems-Billing Assessment: Mr. Britt is a 77 yo male with PMH significant for DM, s/p AVR, CAD s/p CABG, HTN, HLD, hyperthyroidism, chronic back pain, and dementia who presented to the emergency room after an [facility]ed fall at the [facility], s/p ORIF right hip fx. With post-operative acute cardioembolic CVA and resulting dysphagia. - Patient Problems (1) Closed right hip fracture Code(s): S72.001A - FRACTURE OF UNSP PART OF NECK OF RIGHT FEMUR, INIT SNOMED Code(s): 134630713 Comment: - S/P DHS ORIF, POD3 - POC as per Ortho - Repeat xray of hip shows repair with good placement (2) CVA (cerebral vascular accident) Code(s): I63.9 - CEREBRAL INFARCTION, UNSPECIFIED SNOMED Code(s): 380650737 Comment: - Scans as above - Dr. Sharma consulting - with associated dysphagia, may be candidate for Palliative if he fails swallow eval again (3) Dysphagia Code(s): R13.10 - DYSPHAGIA, UNSPECIFIED SNOMED Code(s): 74159444 Comment: - Likely 2/2 to acute CVA - continue NPO and repeat swallow eval today as patient is a little more awake - Afebrile, continue zosyn for now to cover for aspiration (4) Anemia Code(s): D64.9 - ANEMIA, UNSPECIFIED SNOMED Code(s): 907864058 Comment: - Acute on chronic secondary to acute blood loss anemia from the hip fracture and surgery - Received 3 units of PRBCs total - H&H remains low but stable (5) CAD (coronary artery disease) Code(s): I25.10 - ATHSCL HEART DISEASE OF [place] CORONARY ARTERY W/O ANG PCTRS SNOMED Code(s): 84297356 Comment: - History of CABG - Hold ASA and plavix, platelets low and patient not swallowing - Continue heparin at BID dosing (6) Chronic back pain Code(s): M54.9 - DORSALGIA, UNSPECIFIED; G89.29 - OTHER CHRONIC PAIN SNOMED Code(s): 224810541 Comment: - Hx compression FX (7) Dementia Code(s): F03.90 - UNSPECIFIED DEMENTIA WITHOUT BEHAVIORAL DISTURBANCE SNOMED Code(s): 28174565 Comment: - Remains confused, additional change in mental status is likely 2/2 acute CVA rather than his dementia - Supportive care (8) Diabetes Code(s): E11.9 - TYPE 2 DIABETES MELLITUS WITHOUT COMPLICATIONS SNOMED Code(s) : 81167085 Comment: - Continue lispro SS (9) HTN (hypertension) Code(s): I10 - ESSENTIAL (PRIMARY) HYPERTENSION SNOMED Code(s): 44860014 Comment: - SBP 130-140's - Continue losartan (10) Hypothyroidism Code(s): E03.9 - HYPOTHYROIDISM, UNSPECIFIED SNOMED Code(s): 14036241 Comment: - TSH 8.56 07/2017 - Continue levothyroxine (11) DVT prophylaxis Current Visit: Yes Status: Acute Code(s): DWL6480 - SNOMED Code(s): 873604347 Comment: - Continue SQ heparin, decrease to BID given low platelets (12) DNR (do not resuscitate) Comment: - MOLST updated on 11/02 Status and Disposition: Inpatient, may need palliative if he cannot take oral nutrition. Will discuss with family and palliative team.
--- NOTE | 2017-11-05 16:50 | PN ---
Progress Note - Progress Note Date of Service: 11/05/17 SOAP: Subjective: 77 yo male s/p uncomplicated reDHS repair of R hip with L sided stroke 11/04. Patients family has agreed to palliative care. Patient non-verbal, non- responsive, no family at bedside. VSS Objective: General- Well appearing, NAD resting in bed non-verbal, non-responsive to commands MSK- DRessing changed, incision c/d/i, hamida in place, no drainage noted. Vital Signs Temp 99.0 F 11/05/17 15:45 Pulse 84 11/05/17 15:45 Resp 20 11/05/17 15:45 BP 151/56 11/05/17 15:45 Pulse Ox 98 11/05/17 15:45 Intake & Output 11/04/17 11/05/17 11/05/17 18:59 06:59 18:59 Intake Total 1622 919 Output Total 100 0 Balance 1522 919 Weight 63.503 kg Intake: IV Fluids 1622 919 ABX - ZOSYN 174 214 NS (0.9%) 1448 705 Oral 0 0 Output: Urine 0 Lai 100 Other: Estimated Void Small # Bowel Movements 0 # Voids 2 Assessment: Stable 77 yo male s/p uncomplicated reDHS repair of R hip with L sided stroke . Plan: - DVT prophylaxis- heparin, per palliative - dressing changes daily - Acetaminophen (Tylenol Tab*) 975 mg PO Q6H [facility] Last Admin: 11/05/17 12:55 Dose: Not Given Acetaminophen (Tylenol Supp*) 650 mg CO Q4H PRN PRN Reason: FEVER/PAIN Last Admin: 11/05/17 04:53 Dose: 650 mg Aspirin (Asa Supp*) 300 mg CO DAILY [facility] Last Admin: 11/05/17 10:40 Dose: 300 mg Atorvastatin Calcium (Lipitor*) 20 mg PO QPM [facility] Last Admin: 11/04/17 16:54 Dose: Not Given Bisacodyl (Dulcolax Supp*) 10 mg CO DAILY PRN PRN Reason: CONSTIPATION Cholecalciferol (Vitamin D Tab*) 1,000 units PO DAILY [facility] Last Admin: 11/05/17 08:17 Dose: Not Given Citalopram Hydrobromide (Celexa Tab*) 20 mg PO DAILY [facility] Last Admin: 11/05/17 08:17 Dose: Not Given Clopidogrel Bisulfate (Plavix Tab*) 75 mg PO DAILY@1200 [facility] Last Admin: 11/05/17 12:55 Dose: Not Given Dextrose (D50w Syringe 50 Ml*) 12.5 gm IV PUSH .FOR FS < 60 - SS PRN PRN Reason: FS < 60 Docusate Sodium (Colace Cap*) 100 mg PO BID PRN PRN Reason: CONSTIPATION Folic Acid (Folvite Tab*) 2 mg PO DAILY [facility] Last Admin: 11/05/17 08:18 Dose: Not Given Heparin Sodium (Porcine) (Heparin Vial(*)) 5,000 units SUBCUT Q12H [facility] Last Admin: 11/05/17 04:54 Dose: 5,000 units Sodium Chloride (Ns 0.9% 1000 Ml*) 1,000 mls @ 75 mls/hr IV PER RATE [facility] Last Admin: 11/05/17 11:07 Dose: 75 mls/hr Piperacillin Sod/Tazobactam (Sod 13.5 gm/ Sodium Chloride) 500 mls @ 20.833 mls /hr IVPB Q24H [facility] Last Admin: 11/04/17 21:34 Dose: 20.833 mls/hr Insulin Human Lispro (Humalog*) 0 units SUBCUT ACHS [facility] PRN Reason: Protocol Last Admin: 11/05/17 12:54 Dose: Not Given Latanoprost (Xalatan 0.005%*) 1 drop BOTH EYES QPM [facility] Last Admin: 11/04/17 18:03 Dose: 1 drop Levothyroxine Sodium (Synthroid Tab*) 50 mcg PO 0600 [facility] Last Admin: 11/05/17 05:25 Dose: Not Given Losartan Potassium (Cozaar Tab*) 25 mg PO DAILY [facility] Last Admin: 11/05/17 08:18 Dose: Not Given Morphine Sulfate (Morphine Vial*) 2 mg IV Q4H PRN PRN Reason: PAIN - MILD Last Admin: 11/02/17 09:55 Dose: 2 mg Oxycodone HCl (Roxycodone Tab*) 5 mg PO Q4H PRN PRN Reason: PAIN - SEVERE Pharmacy Consult (Zosyn Per Pharmacy*) 1 note FOLLOW UP .ZOSYN PER PHARMACY [facility]
[2017-11-05] MEDS: Atorvastatin* 20 MG TAB PO SCH (17:44)
[2017-11-05] MEDS: Morphine VIAL* 4 MG/ML VIAL (1 ml vial) IV PRN (17:45)
[2017-11-05] MEDS: Morphine ORAL CONCENTRATE* 5 MG/0.25 ML ORAL.SYRIN SL PRN ×2 (20:13→22:30)
[2017-11-05] MEDS: Latanoprost 0.005%* 2.5 ml BTL BOTH EYES SCH (20:16)
--- NOTE | 2017-11-05 21:54 | PN ---
PROGRESS NOTE: DATE OF FOLLOWUP: 11/05/17 HISTORY: No acute overnight events. Since yesterday, Mr. Britt underwent MRI as well as MRA of the head and neck. He has remained largely unchanged overnight. His sisters were visiting when I rounded on him this morning and they were updated. One sister confirmed that he had not been in good health recently and there had been concerns about worsening dementia. MEDICATIONS: 1. Tylenol 650 SC q.4 hours p.r.n. 2. Aspirin 300 mg suppository daily. 3. Heparin 5000 units q.12 hours. 4. Xalatan drops. 5. Normal saline at 75 mL per hour. 6. Zosyn. He also has multiple p.o. medications ordered, but because of his n.p.o. status has not received these. PHYSICAL EXAM: Vital Signs: Temperature 99.1, blood pressure 147/48, heart rate 66, oxygen saturation 96% on room air. His telemetry has not shown any atrial fibrillation but he has had periods of bradycardia this morning, sometimes into the 40s per the septic tank service technician. On general examination, he was in no acute distress in his hospital bed. His eyes were open and he would direct his gaze towards the examiner. He is nonverbal. He lays with his mouth hanging open. He has dry mucous membranes. His right leg continues to be externally rotated and flexed at the hip and knee. On neurologic exam, he sometimes will smile and nod his head, but does not reliably follow any commands. As mentioned, he is nonverbal. The pupils are equal, round, and reactive from 3 to 2 mm. He tracks the examiner in all directions. He has decreased blink to threat on the right. He has right lower facial weakness when he attempts to smile but there is no evidence of facial asymmetry at rest. He has a flaccid right hemiplegia. There is no withdrawal to noxious in the right upper extremity, but he does grimace. His left upper and lower extremities appear to be full strength. He withdraws to noxious stimulation in the right lower extremity, but further strength testing is limited by his recent surgery. DIAGNOSTIC STUDIES/LAB DATA: His white blood cell count is 4.1, hemoglobin 8.1 , hematocrit 24, platelet count of 95 which is down from 104 yesterday. His hemoglobin A1c is 6.7%. Triglycerides 103, cholesterol 82, LDL 37, HDL 24.4. I personally reviewed his MRI scan of the brain, which shows a large area of restricted diffusion in the left occipital lobe as well as the temporal lobe and into the left parietal and frontal lobes. In addition, there are smaller areas of restricted diffusion in the right frontal white matter as well as in the splenium of corpus callosum. These changes have corresponding increased FLAIR signal as well. There is also evidence of generalized atrophy. His head and neck MRA were reviewed and there is occlusion of the left carotid artery with no reconstitution intracranially. Otherwise, the remaining vessels appear patent with no major intracranial occlusion. His transthoracic echocardiogram showed multiple regional wall motion abnormalities and a moderate to severely decreased ejection fraction of 25% to 30% which is significantly changed from a previous day in July of 2015 where the EF was 50% to 55%. There is no clear evidence for PFO. He had a V/Q scan yesterday as well, which showed low probability for PE. IMPRESSION: Mr. Britt is a 77-year-old man with complex medical history including advancing dementia as well as multiple vascular risk factors. He has been admitted to the hospital after a fall resulting in right hip fracture and was subsequently found to have multifocal infarcts involving several vascular distributions. The appearance of these with the various vascular distributions suggest an embolic source. Given his poor ejection fraction, this may be cardioembolic in nature. At this point, he is n.p.o. and he is not able to follow commands well. I discussed with his sisters that he suffered a very significant stroke and in light of his other medical problems, serious discussions regarding goals of care are going to need to be held with his , who is his healthcare proxy. It would not be unreasonable to get palliative care involved and think about comfort care in this man given his overall situation, but this also obviously needs to be discussed with the . At this point, he will be continued on rectal aspirin. We should have Speech evaluate him as well as Physical and Occupational Therapy. He will remain n.p.o. at this time on normal saline for hydration. I let the sisters know that I will be available to update the if she arrives or if she would like a phone call, I can do that as well. [id number]/[facility] #: [id number] [facility]Lyn
[2017-11-05] MEDS: Piperacillin/Tazobactam 13.5 GM IV 24 hour continuous infusion IVPB SCH ×2 (22:31)
[2017-11-06] MEDS: Morphine ORAL CONCENTRATE* 5 MG/0.25 ML ORAL.SYRIN SL PRN ×4 (02:32→21:16)
[2017-11-06] MEDS: Aspirin SUPP* 300 MG PR SCH (08:34)
[2017-11-06] MEDS ORDERED: Atropine 1% (ORAL/SL)* 15 ML BTL SL PRN (16:49)
--- NOTE | 2017-11-06 17:34 | PN ---
Subjective Date of Service: 11/06/17 Interval History: Patient seen and examined. Appears comfortable. Family at bedside. No acute overnight events. Family History: Unchanged from Admission Social History: Unchanged from Admission Past Medical History: Unchanged from Admission Objective Active Medications: Acetaminophen (Tylenol Supp*) [address] Q4H PRN PRN Reason: FEVER/PAIN Last Admin: 11/05/17 22:31 Dose: 650 mg Aspirin (Asa Supp*) [address] DAILY [facility] Last Admin: 11/06/17 08:34 Dose: 300 mg Atropine Sulfate (Atropine 1% (Oral/Sl)*) 2 drop SL Q2H PRN PRN Reason: DISCOMFORT Dextrose (D50w Syringe 50 Ml*) 12.5 gm IV PUSH .FOR FS < 60 - SS PRN PRN Reason: FS < 60 Latanoprost (Xalatan 0.005%*) 1 drop BOTH EYES QPM [facility] Last Admin: 11/05/17 20:16 Dose: 1 drop Morphine Sulfate (Morphine Vial*) 2 mg IV Q4H PRN PRN Reason: PAIN - MILD Last Admin: 11/05/17 17:45 Dose: 2 mg Morphine Sulfate (Morphine Oral Concentrate*) 5 mg SL Q2H PRN PRN Reason: pain, air hunger or tachypnea Last Admin: 11/06/17 13:03 Dose: 5 mg Vital Signs - 8 hr 11/06/17 11/06/17 11/06/17 10:30 11:29 13:03 Temperature 99.0 F Pulse Rate 88 Respiratory 25 16 26 Rate Blood Pressure 134/57 (mmHg) O2 Sat by Pulse 91 Oximetry 11/06/17 15:45 Temperature Pulse Rate Respiratory 24 Rate Blood Pressure (mmHg) O2 Sat by Pulse Oximetry Oxygen Devices in Use Now: Nasal Cannula Appearance: alert with periods of drowsiness Ears/Nose/Mouth/Throat: Mucous Membranes Moist Neck: Trachea Midline Respiratory: Symmetrical Chest Expansion and Respiratory Effort, - - scattered rhonchi bilat Cardiovascular: NL Sounds; No Murmurs; No JVD, RRR - periods of bradycardia in the low 40s Abdominal: NL Sounds; No Tenderness; No Distention Extremities: No Edema Skin: - - right lateral maleolous with st. 2 dressed with mepilex Neurological: - - confused, RUE flaccid, some purposeless movements noted Nutrition: - - continued dysphagia Result Diagrams: 11/05/17 06:28 11/03/17 05:50 Additional Lab and Data: Microbiology and Other Data: Microbiology 11/03/17 15:30 Urine Culture - Final Urine No Growth (<1,000 CFU/mL) Diagnostic Imaging: Patient Name: JAG BRITT Medical Record#: [id number] Ordering Physician: GEOVANNA Green Acct.#: [id number] : 1940 Age: 77 Sex: M Location: SURGICAL STAY UNIT Exam Date: 11/03/17 1834 ADM Status: ADM IN Order Information: CHEST AP PORTABLE Accession Number: [id number] CPT: 94523 Indication: Tachycardia, tachypnea. Single frontal view of the chest performed at 1921 hours was reviewed. Comparison is made with previous exam dated July 29, 2017. Patient is status post tracer thoracotomy. Airspace disease is noted in the upper lobes bilaterally. Blunting of the right costophrenic angle is noted. IMPRESSION: BIAPICAL INFILTRATES AND CHRONIC PLEURAL CHANGES IN THE RIGHT COSTOPHRENIC ANGLE. <Electronically signed by Rafaela Martinez MD in OV> 11/03/171999 Dictated By: Rafaela Matrinez MD Dictated Date/Time: 11/03/171999 Transcribed Date/Time: 11/03/171958 Copy to: Patient Name: JAG BRITT Medical Record#: [id number] Ordering Physician: Effie Pitts NP Acct.#: [id number] : 1940 Age: 77 Sex: M Location: [address] [place] [address]/TELEMETRY Exam Date: 11/04/17 1406 ADM Status: ADM IN Order Information: NM LUNG PERFUSION W/VENTILATIO Accession Number: [id number] CPT: 15975 Indication: Shortness of breath. There is likely xenon-133 was administered by mask. 9.7 mCi was given. Approximately 6.2 mCi of technetium 99m macroaggregated albumin. Ventilation lung scan demonstrates no evidence of air trapping. Perfusion lung scan demonstrates no definite segmental or subsegmental perfusion defects identified. Prior chest x-ray demonstrates infiltrate in the left upper lobe. IMPRESSION: No evidence of ventilation or perfusion mismatches to suggest pulmonary embolus. This is low probability scan for pulmonary embolus. <Electronically signed by Rafaela Martinez MD in OV> 11/04/17 1533 Dictated By: Rafaela Martinez MD Dictated Date/Time: 11/04/17 1533 Transcribed Date/Time: 11/04/17 1528 Copy to: CARDIAC ECHO Conclusions: The study is technically limited due to poor acoustic windows. The patient was combative throughout the study. Mild concentric left ventricular hypertrophy is observed. There are multiple regional wall motion abnormalities as described above. There is moderate to severely decreased left ventricular systolic function. The estimated ejection fraction is 25-30%. The bubble study is negative. The bubble study is negative.No evidence for right to left shunting as best as could be assessed given an uncooperative patient. The aortic valve structure is not well visualized. A bio-prosthetic aortic valve is present. The mean gradient of the aortic valve is 10.5 mmHg. The dimensionless index does not suggest significant stenosis of the valve. There is mild mitral regurgitation. Compared to report of study from 07/30/2015, the overall LV systolic function is significantly worse (was reported to be LVEF 50-55%), the mean gradient across the bioprosthetic valve is mildly increased (was 7.2 mm hg) . Patient Name: JAG BRITT Medical Record#: [id number] Ordering Physician: Effie Pitts NP Acct.#: [id number] : 1940 Age: 77 Sex: M Location: [address] [place] [address]/TELEMETRY Exam Date: 11/04/17 123 ADM Status: ADM IN Order Information: MRI BRAIN W/O Accession Number: [id number] CPT: 10721 Indication: Stroke. Image sequences: Sagittal and axial T1, axial T2, FLAIR, diffusion and susceptibility weighted images of the brain were obtained. Ventricular structures are midline. No midline shift is noted. There is central and cortical atrophy noted. There is a moderate-sized area of restriction of diffusion involving the left posterior temporal lobe extending into the left parietal lobe. This is consistent with acute infarct. Additionally there appears to be smaller areas of restriction of diffusion involving the periventricular white matter on the left, into the left temporal lobe as well as scattered punctate areas of restriction of diffusion in the right centrum semiovale and right splenium of the corpus callosum. The posterior fossa demonstrates no restriction of diffusion. The brainstem is grossly unremarkable. IMPRESSION: Moderate-sized area of restriction of diffusion involving the left posterior temporal lobe extending into the parietal lobe. Other punctate areas of restriction of diffusion is noted in the left and right periventricular white matter as well as in the right splenium of the corpus callosum. <Electronically signed by Rafaela Martinez MD in OV> 11/04/172146 Dictated By: Rafaela Martinez MD Dictated Date/Time: 11/04/172146 Transcribed Date/Time: 11/04/172142 Copy to: MRA HEAD/NECK: Patient Name: JAG BRITT Medical Record#: [id number] Ordering Physician: Effie Pitts NP Acct.#: [id number] : 1940 Age: 77 Sex: M Location: [address] [place] [address] MEDICAL/TELEMETRY Exam Date: 11/04/17 1232 ADM Status: ADM IN Order Information: MRA HEAD W/O Accession Number: [id number] CPT: 76142 Indication: Stroke. MRA of the head was performed utilizing 3-D [id number] technique. Motion artifact degrades the images. There is no flow noted in the left intracranial carotid artery. The intracavernous portions is unremarkable. The right internal carotid artery demonstrates flow. No aneurysmal dilatation is noted. The basilar artery and posterior cerebral arteries are unremarkable. IMPRESSION: Occluded left internal carotid artery with no flow detected in the intracranial carotid artery on the left. <Electronically signed by Rafaela Martinez MD in OV> 11/04/172137 Dictated By: Rafaela Martinez MD Dictated Date/Time: 11/04/172137 Transcribed Date/Time: 11/04/172136 Copy to: Assess/Plan/Problems-Billing Assessment: Mr. Britt is a 77 yo male with PMH significant for DM, s/p AVR, CAD s/p CABG, HTN, HLD, hyperthyroidism, chronic back pain, and dementia who presented to the emergency room after an [facility], s/p ORIF right hip fx. With post-operative acute cardioembolic CVA and resulting dysphagia. - Patient Problems (1) Closed right hip fracture Code(s): S72.001A - FRACTURE OF UNSP PART OF NECK OF RIGHT FEMUR, INIT SNOMED Code(s): 293329231 Comment: - POD4 - last xray with no issues - pain control and supportive care (2) CVA (cerebral vascular accident) Code(s): I63.9 - CEREBRAL INFARCTION, UNSPECIFIED SNOMED Code(s): 713846867 Comment: - Scans as above - Dr. Sharma consulted and now signed off - Persistent dysphagia and failed swallow eval 11/04 and 11/05 - Patient's family does not want enteral feedings and elects palliative/ hospice - Morphine sublingual and atropine sublingual ordered (3) Dysphagia Code(s): R13.10 - DYSPHAGIA, UNSPECIFIED SNOMED Code(s): 87402584 Comment: - Likely 2/2 to acute CVA with probably aspiration - Zosyn discontinued 09/07 - Comfort measures (4) Anemia Code(s): D64.9 - ANEMIA, UNSPECIFIED SNOMED Code(s): 724833384 Comment: - Acute on chronic secondary to acute blood loss anemia from the hip fracture and surgery - Received 3 units of PRBCs total - H&H remains low but stable (5) CAD (coronary artery disease) Code(s): I25.10 - ATHSCL HEART DISEASE OF [place] CORONARY ARTERY W/O ANG PCTRS SNOMED Code(s): 74724393 Comment: - History of CABG - Hold ASA and plavix, platelets low and patient not swallowing - Continue heparin at BID dosing (6) Chronic back pain Code(s): M54.9 - DORSALGIA, UNSPECIFIED; G89.29 - OTHER CHRONIC PAIN SNOMED Code(s): 866529920 Comment: - Hx compression FX (7) Dementia Code(s): F03.90 - UNSPECIFIED DEMENTIA WITHOUT BEHAVIORAL DISTURBANCE SNOMED Code(s): 71889372 Comment: - Remains confused, additional change in mental status is likely 2/2 acute CVA rather than his dementia - Supportive care (8) Diabetes Code(s): E11.9 - TYPE 2 DIABETES MELLITUS WITHOUT COMPLICATIONS SNOMED Code(s) : 29454914 Comment: - DC accuchecks and lispro as patient is not eating (9) HTN (hypertension) Code(s): I10 - ESSENTIAL (PRIMARY) HYPERTENSION SNOMED Code(s): 02927200 Comment: - SBP 130-140's - Continue losartan (10) Hypothyroidism Code(s): E03.9 - HYPOTHYROIDISM, UNSPECIFIED SNOMED Code(s): 34981169 Comment: - TSH 8.56 07/2017 - Continue levothyroxine (11) DVT prophylaxis Current Visit: Yes Status: Acute Code(s): RKH8816 - SNOMED Code(s): 203686279 Comment: - Will DC heparin, as patient is comfort care (12) DNR (do not resuscitate) Comment: - MOLST updated on 11/02 Status and Disposition: Discussed case with Dr. Davis, consultation placed for hospice. Family meeting today to discuss prognosis which is poor given severity of CVA and dysphagia. Will initiate comfort care while inpatient until hospice plan can be decided/initiated. Patient's and daughters are in agreement with comfort measures and minimizing unnecessary interventions. They are interested in hospice residence if possible rather than going back to half-way. Will reach out to patient account liaison, but this will likely not happen until Wednesday or Wednesday. Coordinated with staff, CM and primary RN.
[2017-11-06] MEDS: Latanoprost 0.005%* 2.5 ml BTL BOTH EYES SCH (17:43)
[2017-11-07] MEDS: Morphine ORAL CONCENTRATE* 5 MG/0.25 ML ORAL.SYRIN SL PRN (06:02)
[2017-11-07] MEDS: Aspirin SUPP* 300 MG PR SCH (09:18)
--- NOTE | 2017-11-07 16:56 | PN ---
Subjective Date of Service: 11/07/17 Interval History: Patient seen and examined. Appears comfortable. Remains non-verbal, keeps taking off his gown, but knows when his briefs are wet and is trying to interact with family. No acute overnight events. Family History: Unchanged from Admission Social History: Unchanged from Admission Past Medical History: Unchanged from Admission Objective Active Medications: Acetaminophen (Tylenol Supp*) 650 mg KS Q4H PRN PRN Reason: FEVER/PAIN Last Admin: 11/05/17 22:31 Dose: 650 mg Aspirin (Asa Supp*) 300 mg KS DAILY [facility] Last Admin: 11/07/17 09:18 Dose: 300 mg Atropine Sulfate (Atropine 1% (Oral/Sl)*) 2 drop SL Q2H PRN PRN Reason: DISCOMFORT Dextrose (D50w Syringe 50 Ml*) 12.5 gm IV PUSH .FOR FS < 60 - SS PRN PRN Reason: FS < 60 Latanoprost (Xalatan 0.005%*) 1 drop BOTH EYES QPM [facility] Last Admin: 11/06/17 17:43 Dose: 1 drop Morphine Sulfate (Morphine Vial*) 2 mg IV Q4H PRN PRN Reason: PAIN - MILD Last Admin: 11/05/17 17:45 Dose: 2 mg Morphine Sulfate (Morphine Oral Concentrate*) 5 mg SL Q2H PRN PRN Reason: pain, air hunger or tachypnea Last Admin: 11/07/17 06:02 Dose: 5 mg Oxygen Devices in Use Now: None Appearance: Confused, resting comfortably Ears/Nose/Mouth/Throat: - - dry oral mucosa Neck: NL Appearance and Movements; NL JVP, Trachea Midline Respiratory: - - diminished bases, no rhonchir or rales Abdominal: NL Sounds; No Tenderness; No Distention Skin: - - mepilex to right ankle Neurological: - - confused at baseline, RUE weakness Nutrition: - - dysphagia Result Diagrams: 11/05/17 06:28 11/03/17 05:50 Additional Lab and Data: Microbiology and Other Data: Microbiology 11/03/17 15:30 Urine Culture - Final Urine No Growth (<1,000 CFU/mL) Diagnostic Imaging: Patient Name: JAG BRITT Medical Record#: [id number] Ordering Physician: GEOVANNA Green Acct.#: [id number] : 1940 Age: 77 Sex: M Location: SURGICAL STAY UNIT Exam Date: 11/03/17 1834 ADM Status: ADM IN Order Information: CHEST AP PORTABLE Accession Number: [id number] CPT: 14546 Indication: Tachycardia, tachypnea. Single frontal view of the chest performed at 1921 hours was reviewed. Comparison is made with previous exam dated July 29, 2017. Patient is status post tracer thoracotomy. Airspace disease is noted in the upper lobes bilaterally. Blunting of the right costophrenic angle is noted. IMPRESSION: BIAPICAL INFILTRATES AND CHRONIC PLEURAL CHANGES IN THE RIGHT COSTOPHRENIC ANGLE. <Electronically signed by Rafaela Martinez MD in OV> 11/03/171999 Dictated By: Rafaela Martinez MD Dictated Date/Time: 11/03/171999 Transcribed Date/Time: 11/03/171958 Copy to: Patient Name: JAG BRITT Medical Record#: [id number] Ordering Physician: Effie Pitts NP Acct.#: [id number] : 1940 Age: 77 Sex: M Location: [address] [place] [address]/TELEMETRY Exam Date: 11/04/17 1406 ADM Status: ADM IN Order Information: NM LUNG PERFUSION W/VENTILATIO Accession Number: [id number] CPT: 68328 Indication: Shortness of breath. There is likely xenon-133 was administered by mask. 9.7 mCi was given. Approximately 6.2 mCi of technetium 99m macroaggregated albumin. Ventilation lung scan demonstrates no evidence of air trapping. Perfusion lung scan demonstrates no definite segmental or subsegmental perfusion defects identified. Prior chest x-ray demonstrates infiltrate in the left upper lobe. IMPRESSION: No evidence of ventilation or perfusion mismatches to suggest pulmonary embolus. This is low probability scan for pulmonary embolus. <Electronically signed by Rafaela Martinez MD in OV> 11/04/17 1533 Dictated By: Rafaela Martinez MD Dictated Date/Time: 11/04/17 1533 Transcribed Date/Time: 11/04/17 1528 Copy to: CARDIAC ECHO Conclusions: The study is technically limited due to poor acoustic windows. The patient was combative throughout the study. Mild concentric left ventricular hypertrophy is observed. There are multiple regional wall motion abnormalities as described above. There is moderate to severely decreased left ventricular systolic function. The estimated ejection fraction is 25-30%. The bubble study is negative. The bubble study is negative.No evidence for right to left shunting as best as could be assessed given an uncooperative patient. The aortic valve structure is not well visualized. A bio-prosthetic aortic valve is present. The mean gradient of the aortic valve is 10.5 mmHg. The dimensionless index does not suggest significant stenosis of the valve. There is mild mitral regurgitation. Compared to report of study from 07/30/2015, the overall LV systolic function is significantly worse (was reported to be LVEF 50-55%), the mean gradient across the bioprosthetic valve is mildly increased (was 7.2 mm hg) . Patient Name: JAG BRITT Medical Record#: [id number] Ordering Physician: Effie Pitts NP Acct.#: [id number] : 1940 Age: 77 Sex: M Location: [address] [place] [address] MEDICAL/TELEMETRY Exam Date: 11/04/17 1232 ADM Status: ADM IN Order Information: MRI BRAIN W/O Accession Number: [id number] CPT: 47615 Indication: Stroke. Image sequences: Sagittal and axial T1, axial T2, FLAIR, diffusion and susceptibility weighted images of the brain were obtained. Ventricular structures are midline. No midline shift is noted. There is central and cortical atrophy noted. There is a moderate-sized area of restriction of diffusion involving the left posterior temporal lobe extending into the left parietal lobe. This is consistent with acute infarct. Additionally there appears to be smaller areas of restriction of diffusion involving the periventricular white matter on the left, into the left temporal lobe as well as scattered punctate areas of restriction of diffusion in the right centrum semiovale and right splenium of the corpus callosum. The posterior fossa demonstrates no restriction of diffusion. The brainstem is grossly unremarkable. IMPRESSION: Moderate-sized area of restriction of diffusion involving the left posterior temporal lobe extending into the parietal lobe. Other punctate areas of restriction of diffusion is noted in the left and right periventricular white matter as well as in the right splenium of the corpus callosum. <Electronically signed by Rafaela Martinez MD in OV> 11/04/172146 Dictated By: Rafaela Martinez MD Dictated Date/Time: 11/04/172146 Transcribed Date/Time: 11/04/172142 Copy to: MRA HEAD/NECK: Patient Name: JAG BRITT Medical Record#: [id number] Ordering Physician: Effie Pitts NP Acct.#: [id number] : 1940 Age: 77 Sex: M Location: [address] [place] [address]/TELEMETRY Exam Date: 11/04/17 123 ADM Status: ADM IN Order Information: MRA HEAD W/O Accession Number: [id number] CPT: 66391 Indication: Stroke. MRA of the head was performed utilizing 3-D [id number] technique. Motion artifact degrades the images. There is no flow noted in the left intracranial carotid artery. The intracavernous portions is unremarkable. The right internal carotid artery demonstrates flow. No aneurysmal dilatation is noted. The basilar artery and posterior cerebral arteries are unremarkable. IMPRESSION: Occluded left internal carotid artery with no flow detected in the intracranial carotid artery on the left. <Electronically signed by Rafaela Martinez MD in OV> 11/04/172137 Dictated By: Rafaela Martinez MD Dictated Date/Time: 11/04/172137 Transcribed Date/Time: 11/04/172136 Copy to: Assess/Plan/Problems-Billing Assessment: Mr. Britt is a 77 yo male with PMH significant for DM, s/p AVR, CAD s/p CABG, HTN, HLD, hyperthyroidism, chronic back pain, and dementia who presented to the emergency room after an unwitnessed fall at the SNF, s/p ORIF right hip fx. With post-operative acute cardioembolic CVA and resulting dysphagia. - Patient Problems (1) CVA (cerebral vascular accident) Code(s): I63.9 - CEREBRAL INFARCTION, UNSPECIFIED SNOMED Code(s): 397106937 Comment: - With advanced dementia - Comfort measures only - Will be signed onto hospice this week - Morphine sublingual and atropine sublingual ordered (2) Dysphagia Code(s): R13.10 - DYSPHAGIA, UNSPECIFIED SNOMED Code(s): 55853628 Comment: - Family does not want enteral feeding - Continue oral care and comfort measures (3) Closed right hip fracture Code(s): S72.001A - FRACTURE OF UNSP PART OF NECK OF RIGHT FEMUR, INIT SNOMED Code(s): 273404514 Comment: - POD5, ortho signed off - last xray with no issues - pain control and supportive care (4) DNR (do not resuscitate) Comment: - MOLST updated on 11/02 Status and Disposition: Remain inpatient pending enrollment into hospice this week. Continue comfort measures and family support. Family also interested in pastoral care.
[2017-11-07] MEDS: Latanoprost 0.005%* 2.5 ml BTL BOTH EYES SCH (18:59)
[2017-11-08] MEDS: Aspirin SUPP* 300 MG PR SCH (07:57)
[2017-11-08] MEDS: Morphine ORAL CONCENTRATE* 5 MG/0.25 ML ORAL.SYRIN SL PRN (07:57)
--- NOTE | 2017-11-08 14:54 | PN ---
Progress Note - Progress Note Date of Service: 11/08/17 SOAP: Subjective: []Patient seen at beside. He is nonverbal but does acknowledge my presence today. Objective: [] Vital Signs Temp 99.0 F 11/06/17 15:38 Pulse 84 11/06/17 15:38 Resp 22 11/08/17 11:49 BP 144/52 11/06/17 15:38 Pulse Ox 97 11/06/17 15:38 Intake & Output 11/07/17 11/08/17 11/08/17 18:59 06:59 18:59 Intake Total 0 0 0 Output Total 300 Balance -300 0 0 Intake: Oral 0 0 0 Output: Urine 300 Other: Estimated Void Small Large Small # Bowel Movements 0 # Voids 1 1 Laboratory Last Values WBC 4.1 10^3/ul (3.5-10.8) 11/05/17 06:28 RBC 3.15 10^6/ul (4.0-5.4) L 11/05/17 06:28 Hgb 8.1 g/dl (14.0-18.0) L 11/05/17 06:28 Hct 24 % (42-52) L 11/05/17 06:28 MCV 76 fL (80-94) L 11/05/17 06:28 MCH 26 pg (27-31) L 11/05/17 06:28 MCHC 34 g/dl (31-36) 11/05/17 06:28 RDW 24 % (10.5-15) H 11/05/17 06:28 Plt Count 95 10^3/ul (150-450) L 11/05/17 06:28 MPV 8.4 um3 (7.4-10.4) 11/05/17 06:28 Neut % (Auto) 81.9 % (38-83) 11/04/17 05:29 Lymph % (Auto) 6.4 % (25-47) L 11/04/17 05:29 [place] % (Auto) 10.7 % (0-7) H 11/04/17 05:29 Eos % (Auto) 0.2 % (0-6) 11/04/17 05:29 Baso % (Auto) 0.8 % (0-2) 11/04/17 05:29 Absolute Neuts (auto) 4.2 10^3/ul (1.5-7.7) 11/04/17 05:29 Absolute Lymphs (auto) 0.3 10^3/ul (1.0-4.8) L 11/04/17 05:29 Absolute Monos (auto) 0.6 10^3/ul (0-0.8) 11/04/17 05:29 Absolute Eos (auto) 0 10^3/ul (0-0.6) 11/04/17 05:29 Absolute Basos (auto) 0 10^3/ul (0-0.2) 11/04/17 05:29 Absolute Nucleated RBC 0 10^3/ul 11/04/17 05:29 Immature Gran % 1 % (0-9) 10/31/17 16:20 Neutrophils % 84 % (38-83) H 11/05/17 06:28 Band Neutrophils % 1 % (0-8) 10/31/17 16:20 Lymphocytes % 9 % (25-47) L 11/05/17 06:28 Monocytes % 5 % (0-7) 11/05/17 06:28 Eosinophils % 1 % (0-6) 11/05/17 06:28 Basophils % 1 % (0-2) 11/05/17 06:28 Nucleated RBC % 0.3 11/04/17 05:29 Abs Neuts (Manual) 3.4 10^3/ul (1.5-7.7) 11/05/17 06:28 Abs Lymphs (Manual) 0.4 10^3/ul (1.0-4.8) L 11/05/17 06:28 Abs Monocytes (Manual) 0.2 10^3/ul (0-0.8) 11/05/17 06:28 Absolute Eos (Manual) 0 10^3/ul (0-0.6) 11/05/17 06:28 Abs Basophils (Manual) 0 10^3/ul (0-0.2) 11/05/17 06:28 Nucleated RBCs/100 WBC 1 (0-0) H 10/31/17 16:20 Large Platelets Present 11/03/17 05:49 Giant Platelets Present 11/04/17 05:29 Normal RBC Morphology Not Reportable 11/05/17 06:28 Polychromasia 1+ 10/31/17 16:20 Anisocytosis 2+ 10/31/17 16:20 Microcytosis 1+ 10/31/17 16:20 Tear Drop Cells 1+ 11/05/17 06:28 Elliptocytes 2+ 11/05/17 06:28 Acanthocytes (Spur) 1+ 11/05/17 06:28 Schistocytes 1+ 11/05/17 06:28 Hem Pathologist Commnt 11/05/17 06:28 INR (Anticoag Therapy) 1.27 (0.77-1.02) H 11/02/17 07:38 APTT 27.2 seconds (26.0-36.3) 10/31/17 16:20 Sodium 139 mmol/L (139-145) 11/03/17 05:50 Potassium 3.6 mmol/L (3.5-5.0) 11/03/17 05:50 Chloride 105 mmol/L (101-111) 11/03/17 05:50 Carbon Dioxide 20 mmol/L (22-32) L 11/03/17 05:50 Anion Gap 14 mmol/L (2-11) H 11/03/17 05:50 BUN 10 mg/dL (6-24) 11/03/17 05:50 Creatinine 0.67 mg/dL (0.67-1.17) 11/03/17 05:50 Est GFR ( Amer) 147.5 (>60) 11/03/17 05:50 Est GFR (Non-Af Amer) 114.7 (>60) 11/03/17 05:50 BUN/Creatinine Ratio 14.9 (8-20) 11/03/17 05:50 Glucose 166 mg/dL (70-100) H 11/03/17 05:50 POC Glucose (mg/dL) 154 mg/dL (70-100) H 11/05/17 17:30 Hemoglobin A1c 6.7 % (4.0-5.6) H 11/05/17 06:28 Lactic Acid 0.9 mmol/L (0.5-2.0) 11/04/17 16:16 Calcium 8.0 mg/dL (8.6-10.3) L 11/03/17 05:50 Total Bilirubin 1.00 mg/dL (0.2-1.0) 11/02/17 07:38 AST 12 U/L (13-39) L 11/02/17 07:38 ALT 7 U/L (7-52) 11/02/17 07:38 Alkaline Phosphatase 78 U/L (34-104) 11/02/17 07:38 Troponin I 0.01 ng/mL (<0.04) 11/02/17 07:38 C-Reactive Protein 49.85 mg/L (< 5.00) H 10/31/17 16:20 Total Protein 6.4 g/dL (6.4-8.9) 11/02/17 07:38 Albumin 3.2 g/dL (3.2-5.2) 11/02/17 07:38 Globulin 3.2 g/dL (2-4) 11/02/17 07:38 Albumin/Globulin Ratio 1.0 (1-3) 11/02/17 07:38 Triglycerides 103 mg/dL 11/05/17 06:28 Cholesterol 82 mg/dL 11/05/17 06:28 LDL Cholesterol 37 mg/dL 11/05/17 06:28 HDL Cholesterol 24.4 mg/dL 11/05/17 06:28 Amylase 46 U/L (29-103) 10/31/17 16:20 Lipase 22 U/L (11.0-82.0) 10/31/17 16:20 Urine Color Yellow 11/03/17 15:30 Urine Appearance Clear 11/03/17 15:30 Urine pH 5.0 (5-9) 11/03/17 15:30 Ur Specific [place] 1.020 (1.010-1.030) 11/03/17 15:30 Urine Protein 1+(30 mg/dl) (Negative) A 11/03/17 15:30 Urine Ketones 2+ (Negative) A 11/03/17 15:30 Urine Blood 2+ (Negative) A 11/03/17 15:30 Urine Nitrate Negative (Negative) 11/03/17 15:30 Urine Bilirubin Negative (Negative) 11/03/17 15:30 Urine Urobilinogen Negative (Negative) 11/03/17 15:30 Ur Leukocyte Esterase Negative (Negative) 11/03/17 15:30 Urine WBC (Auto) Trace(0-5/hpf) (Absent) 11/03/17 15:30 Urine RBC (Auto) Absent (Absent) 11/03/17 15:30 Ur Squamous Epith Cells Present (Absent) A 11/03/17 15:30 Urine Bacteria Absent (Absent) 11/03/17 15:30 Urine Glucose 2+(150 mg/dl) (Negative) A 11/03/17 15:30 Blood Type O Positive 11/01/17 08:01 Antibody Screen Negative 11/01/17 08:01 Crossmatch See Detail 11/01/17 08:01 General: NAD, grimaces with dressing change. RLE: Dressing changed. Incision CDI with well approximated wound edges and no surrounding erythema. Thigh is soft and nontender. 2+ DP pulse, capillary refill less than two seconds distally. BL LE: Calves soft and nontender without erythema, edema or palpable cords. Assessment: []77 yo male s/p uncomplicated reDHS repair of R hip with L sided stroke Plan: []Daily Dressing changes - wash with soap and water, betadyne, telfa, 4x4's and tape Palliative care
--- NOTE | 2017-11-08 16:18 | CONSULT ---
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 He had been at [facility] for about 3 weeks when he experienced a fall that led to this hospitalization. He was found to have a left intertrochanteric fracture for which he underwent surgery, unfortunately with general anesthesia as his spinal stenosis prompted rejection of spinal anesthesia. He had worsening mental status post-operatively, but then additionally experienced multiple embolic CVAs here and has since been bedbound , delirious, disoriented and unable to eat or drink. His family has decided to make him comfort care only. Lab Values: Laboratory Last Values WBC 4.1 10^3/ul (3.5-10.8) 11/05/17 06:28 RBC 3.15 10^6/ul (4.0-5.4) L 11/05/17 06:28 Hgb 8.1 g/dl (14.0-18.0) L 11/05/17 06:28 Hct 24 % (42-52) L 11/05/17 06:28 MCV 76 fL (80-94) L 11/05/17 06:28 MCH 26 pg (27-31) L 11/05/17 06:28 MCHC 34 g/dl (31-36) 11/05/17 06:28 RDW 24 % (10.5-15) H 11/05/17 06:28 Plt Count 95 10^3/ul (150-450) L 11/05/17 06:28 MPV 8.4 um3 (7.4-10.4) 11/05/17 06:28 Neut % (Auto) 81.9 % (38-83) 11/04/17 05:29 Lymph % (Auto) 6.4 % (25-47) L 11/04/17 05:29 [place] % (Auto) 10.7 % (0-7) H 11/04/17 05:29 Eos % (Auto) 0.2 % (0-6) 11/04/17 05:29 Baso % (Auto) 0.8 % (0-2) 11/04/17 05:29 Absolute Neuts (auto) 4.2 10^3/ul (1.5-7.7) 11/04/17 05:29 Absolute Lymphs (auto) 0.3 10^3/ul (1.0-4.8) L 11/04/17 05:29 Absolute Monos (auto) 0.6 10^3/ul (0-0.8) 11/04/17 05:29 Absolute Eos (auto) 0 10^3/ul (0-0.6) 11/04/17 05:29 Absolute Basos (auto) 0 10^3/ul (0-0.2) 11/04/17 05:29 Absolute Nucleated RBC 0 10^3/ul 11/04/17 05:29 Immature Gran % 1 % (0-9) 10/31/17 16:20 Neutrophils % 84 % (38-83) H 11/05/17 06:28 Band Neutrophils % 1 % (0-8) 10/31/17 16:20 Lymphocytes % 9 % (25-47) L 11/05/17 06:28 Monocytes % 5 % (0-7) 11/05/17 06:28 Eosinophils % 1 % (0-6) 11/05/17 06:28 Basophils % 1 % (0-2) 11/05/17 06:28 Nucleated RBC % 0.3 11/04/17 05:29 Abs Neuts (Manual) 3.4 10^3/ul (1.5-7.7) 11/05/17 06:28 Abs Lymphs (Manual) 0.4 10^3/ul (1.0-4.8) L 11/05/17 06:28 Abs Monocytes (Manual) 0.2 10^3/ul (0-0.8) 11/05/17 06:28 Absolute Eos (Manual) 0 10^3/ul (0-0.6) 11/05/17 06:28 Abs Basophils (Manual) 0 10^3/ul (0-0.2) 11/05/17 06:28 Nucleated RBCs/100 WBC 1 (0-0) H 10/31/17 16:20 Large Platelets Present 11/03/17 05:49 Giant Platelets Present 11/04/17 05:29 Normal RBC Morphology Not Reportable 11/05/17 06:28 Polychromasia 1+ 10/31/17 16:20 Anisocytosis 2+ 10/31/17 16:20 Microcytosis 1+ 10/31/17 16:20 Tear Drop Cells 1+ 11/05/17 06:28 Elliptocytes 2+ 11/05/17 06:28 Acanthocytes (Spur) 1+ 11/05/17 06:28 Schistocytes 1+ 11/05/17 06:28 Hem Pathologist Commnt 11/05/17 06:28 INR (Anticoag Therapy) 1.27 (0.77-1.02) H 11/02/17 07:38 APTT 27.2 seconds (26.0-36.3) 10/31/17 16:20 Sodium 139 mmol/L (139-145) 11/03/17 05:50 Potassium 3.6 mmol/L (3.5-5.0) 11/03/17 05:50 Chloride 105 mmol/L (101-111) 11/03/17 05:50 Carbon Dioxide 20 mmol/L (22-32) L 11/03/17 05:50 Anion Gap 14 mmol/L (2-11) H 11/03/17 05:50 BUN 10 mg/dL (6-24) 11/03/17 05:50 Creatinine 0.67 mg/dL (0.67-1.17) 11/03/17 05:50 Est GFR ( Amer) 147.5 (>60) 11/03/17 05:50 Est GFR (Non-Af Amer) 114.7 (>60) 11/03/17 05:50 BUN/Creatinine Ratio 14.9 (8-20) 11/03/17 05:50 Glucose 166 mg/dL (70-100) H 11/03/17 05:50 POC Glucose (mg/dL) 154 mg/dL (70-100) H 11/05/17 17:30 Hemoglobin A1c 6.7 % (4.0-5.6) H 11/05/17 06:28 Lactic Acid 0.9 mmol/L (0.5-2.0) 11/04/17 16:16 Calcium 8.0 mg/dL (8.6-10.3) L 11/03/17 05:50 Total Bilirubin 1.00 mg/dL (0.2-1.0) 11/02/17 07:38 AST 12 U/L (13-39) L 11/02/17 07:38 ALT 7 U/L (7-52) 11/02/17 07:38 Alkaline Phosphatase 78 U/L (34-104) 11/02/17 07:38 Troponin I 0.01 ng/mL (<0.04) 11/02/17 07:38 C-Reactive Protein 49.85 mg/L (< 5.00) H 10/31/17 16:20 Total Protein 6.4 g/dL (6.4-8.9) 11/02/17 07:38 Albumin 3.2 g/dL (3.2-5.2) 11/02/17 07:38 Globulin 3.2 g/dL (2-4) 11/02/17 07:38 Albumin/Globulin Ratio 1.0 (1-3) 11/02/17 07:38 Triglycerides 103 mg/dL 11/05/17 06:28 Cholesterol 82 mg/dL 11/05/17 06:28 LDL Cholesterol 37 mg/dL 11/05/17 06:28 HDL Cholesterol 24.4 mg/dL 11/05/17 06:28 Amylase 46 U/L (29-103) 10/31/17 16:20 Lipase 22 U/L (11.0-82.0) 10/31/17 16:20 Urine Color Yellow 11/03/17 15:30 Urine Appearance Clear 11/03/17 15:30 Urine pH 5.0 (5-9) 11/03/17 15:30 Ur Specific [place] 1.020 (1.010-1.030) 11/03/17 15:30 Urine Protein 1+(30 mg/dl) (Negative) A 11/03/17 15:30 Urine Ketones 2+ (Negative) A 11/03/17 15:30 Urine Blood 2+ (Negative) A 11/03/17 15:30 Urine Nitrate Negative (Negative) 11/03/17 15:30 Urine Bilirubin Negative (Negative) 11/03/17 15:30 Urine Urobilinogen Negative (Negative) 11/03/17 15:30 Ur Leukocyte Esterase Negative (Negative) 11/03/17 15:30 Urine WBC (Auto) Trace(0-5/hpf) (Absent) 11/03/17 15:30 Urine RBC (Auto) Absent (Absent) 11/03/17 15:30 Ur Squamous Epith Cells Present (Absent) A 11/03/17 15:30 Urine Bacteria Absent (Absent) 11/03/17 15:30 Urine Glucose 2+(150 mg/dl) (Negative) A 11/03/17 15:30 Blood Type O Positive 11/01/17 08:01 Antibody Screen Negative 11/01/17 08:01 Crossmatch See Detail 11/01/17 08:01 - Objective Active Medications: Acetaminophen (Tylenol Supp*) 650 mg NE Q4H PRN PRN Reason: FEVER/PAIN Last Admin: 11/05/17 22:31 Dose: 650 mg Aspirin (Asa Supp*) 300 mg NE DAILY RENEA Last Admin: 11/08/17 07:57 Dose: 300 mg Atropine Sulfate (Atropine 1% (Oral/Sl)*) 2 drop SL Q2H PRN PRN Reason: DISCOMFORT Dextrose (D50w Syringe 50 Ml*) 12.5 gm IV PUSH .FOR FS < 60 - SS PRN PRN Reason: FS < 60 Latanoprost (Xalatan 0.005%*) 1 drop BOTH EYES QPM RENEA Last Admin: 11/07/17 18:59 Dose: 1 drop Morphine Sulfate (Morphine Vial*) 2 mg IV Q4H PRN PRN Reason: PAIN - MILD Last Admin: 11/05/17 17:45 Dose: 2 mg Morphine Sulfate (Morphine Oral Concentrate*) 5 mg SL Q2H PRN PRN Reason: pain, air hunger or tachypnea Last Admin: 11/08/17 07:57 Dose: 5 mg Vital Signs: Vital Signs: Temp Pulse Resp BP Pulse Ox 99.0 F 84 22 144/52 97 11/06/17 15:38 11/06/17 15:38 11/08/17 11:49 11/06/17 15:38 11/06/17 15:38 Patient Weight: Weight 140 lb Intake and Output: Intake & Output 11/06/17 11/07/17 11/08/17 11/09/17 06:59 06:59 06:59 06:59 Intake Total 1535 0 0 0 Output Total 200 300 Balance 1335 0 -300 0 Intake: IV Fluids 1535 ABX - ZOSYN 479 NS (0.9%) 1056 Oral 0 0 0 0 Output: Urine 200 300 Other: Estimated Void Small Large Large Small # Bowel Movements 0 0 0 # Voids 2 1 1 1 ADLs: Meal Record Start: 10/31/17 20: 49 Freq: Status: Inactive Protocol: Created 10/31/17 20:49 System (Rec: 10/31/17 20:49 System SSU-M13) Document 11/01/17 16:41 [id number] (Rec: 11/01/17 16:41 [id number] SSU-C06) Document 11/02/17 08:04 KCU6557 (Rec: 11/02/17 08:04 HRB0056 SSU-C10) Document 11/02/17 13:21 TSR6976 (Rec: 11/02/17 13:22 RAL0951 SSU-C10) Document 11/03/17 13:51 SBD5797 (Rec: 11/03/17 13:52 XML5107 SSU-C02) ADLs: Meal Record Start: 11/05/17 10: 18 Freq: DAILY@0900,1400,1800 Status: Active Protocol: Created 11/05/17 10:18 [id number] (Rec: 11/05/17 10:18 [id number] HOSP-C11) Document 11/05/17 14:00 EUI2201 (Rec: 11/05/17 15:09 VZA8152 TELE-C01) Document 11/05/17 18:00 FGE0361 (Rec: 11/05/17 18:58 RGC4217 TELE-C10) Document 11/06/17 09:00 GQT0480 (Rec: 11/06/17 14:46 RQH7915 TELE-C10) Document 11/06/17 14:00 DJV2321 (Rec: 11/06/17 14:47 XJA8924 TELE-C10) Document 11/06/17 18:05 PJK6088 (Rec: 11/06/17 18:06 URZ1679 TELE-C09) Document 11/07/17 09:00 XPF5704 (Rec: 11/07/17 09:52 EFF5583 TELE-C11) Document 11/07/17 14:00 CQT4060 (Rec: 11/07/17 15:11 EHL9147 TELE-C11) Document 11/07/17 19:59 QTR8659 (Rec: 11/07/17 19:59 WDE7701 TELE-C11) Document 11/08/17 09:00 BPM6962 (Rec: 11/08/17 09:15 RGG4166 TELE-C13) Document 11/08/17 13:36 HRE8900 (Rec: 11/08/17 13:36 XIT8062 TELE-C13) Intake and Output Start: 10/31/17 19: 49 Freq: 06,14,2200 Status: Complete Protocol: Created 10/31/17 19:49 RIC6513 (Rec: 10/31/17 19:49 BKG [facility]-BG12) Document 10/31/17 22:00 WHK7475 (Rec: 10/31/17 22:16 ODW5632 SSU-M13) Document 11/01/17 02:44 OZQ3546 (Rec: 11/01/17 02:45 IBS1670 SSU-C08) Document 11/01/17 13:55 TSV9308 (Rec: 11/01/17 13:55 MIE5469 SSU-M06) Document 11/01/17 14:00 SWH4103 (Rec: 11/01/17 17:44 BNY7606 SSU-C09) Document 11/01/17 20:28 HFM1434 (Rec: 11/01/17 20:29 SFJ7635 SSU-C04) Document 11/01/17 22:00 CQH6700 (Rec: 11/01/17 22:24 AMN2308 SSU-M16) Document 11/02/17 04:31 FUQ5421 (Rec: 11/02/17 04:31 IAR1960 SSU-M17) Document 11/02/17 11:15 PZI7887 (Rec: 11/02/17 11:15 BGX7362 SSU-C02) Document 11/02/17 14:00 RNW8904 (Rec: 11/02/17 15:01 LXK5654 SSU-C19) Document 11/02/17 22:00 YTF0051 (Rec: 11/02/17 22:47 FFT3147 SSU-M15) Document 11/03/17 05:41 RMU3061 (Rec: 11/03/17 05:41 FNI6588 SSU-C06) Document 11/03/17 11:15 QVI0331 (Rec: 11/03/17 11:16 PCC5481 SSU-M18) Document 11/03/17 12:12 SDH5512 (Rec: 11/03/17 12:12 MUA3156 SSU-M07) Document 11/03/17 12:19 JJV6606 (Rec: 11/03/17 12:40 COX6232 SSU-C12) Document 11/03/17 13:00 NJG9427 (Rec: 11/03/17 19:03 VUM8618 SSU-C12) Document 11/03/17 14:00 LPG4034 (Rec: 11/03/17 14:15 QSY7086 SSU-C09) Document 11/03/17 15:50 KJH5253 (Rec: 11/03/17 15:50 SUB9334 SSU-M07) Document 11/03/17 22:00 XXR1512 (Rec: 11/03/17 23:04 NSV7541 SSU-M18) Document 11/04/17 22:00 AYM5257 (Rec: 11/04/17 22:36 XCZ7196 TELE-C06) Document 11/05/17 06:00 XOQ1454 (Rec: 11/05/17 06:32 CBW2264 TELE-C32) Document 11/05/17 14:00 ATL9618 (Rec: 11/05/17 15:09 SVA9016 TELE-C01) Document 11/05/17 22:00 AKQ7030 (Rec: 11/05/17 22:14 HLG1772 TELE-C10) Document 11/06/17 06:00 CRM4952 (Rec: 11/06/17 06:10 LEI5697 TELE-C34) Intake and Output Start: 10/31/17 20: 49 Freq: DAILY@0600,1400,2200 Status: Inactive Protocol: Created 10/31/17 20:49 System (Rec: 10/31/17 20:49 System SSU-M13) Document 10/31/17 22:00 BBU9707 (Rec: 10/31/17 22:16 YUA0651 SSU-M13) Document 11/01/17 02:44 QFB7440 (Rec: 11/01/17 02:45 NEL5727 SSU-C08) Document 11/01/17 14:06 DTR5569 (Rec: 11/01/17 14:07 EMQ5749 SSU-M18) Document 11/01/17 20:28 NRU8614 (Rec: 11/01/17 20:29 KPT2112 SSU-C04) Document 11/01/17 22:00 QDY7409 (Rec: 11/01/17 22:24 GOA4250 SSU-M16) Document 11/02/17 04:31 KNU9911 (Rec: 11/02/17 04:31 SNA4627 SSU-M17) Intake and Output Start: 11/05/17 10: 18 Freq: DAILY@0600,1400,2200 Status: Active Protocol: Created 11/05/17 10:18 LGU4523 (Rec: 11/05/17 10:18 FMO7828 HOSP-C11) Document 11/05/17 14:00 HFU5719 (Rec: 11/05/17 15:09 SGO9713 TELE-C01) Document 11/05/17 22:00 DXI6290 (Rec: 11/05/17 22:14 CYK4373 TELE-C10) Document 11/06/17 06:00 WVK9796 (Rec: 11/06/17 06:10 USU3825 TELE-C34) Document 11/06/17 14:00 PXC5504 (Rec: 11/06/17 14:58 QXZ7627 TELE-C10) Document 11/06/17 22:00 PRK9278 (Rec: 11/06/17 22:30 HCX6331 TELE-C33) Document 11/07/17 06:00 AUJ9104 (Rec: 11/07/17 06:10 PEO4550 TELE-C35) Document 11/07/17 14:00 QSF2477 (Rec: 11/07/17 15:12 GFB6141 TELE-C11) Document 11/07/17 21:58 NRW8814 (Rec: 11/07/17 21:59 FMD7995 TELE-C10) Document 11/08/17 05:58 UOR3905 (Rec: 11/08/17 05:59 QBE2376 TELE-C34) Document 11/08/17 14:00 QFV0126 (Rec: 11/08/17 14:48 KSD3410 TELE-C13) General Impression: Alert, makes eye contact but unable to verbalize. Head: Symmetrical Eyes: PERRLA Ears/Nose/Mouth/Throat: Mucous Membranes Moist Neck: NL Appearance and Movements; NL JVP, Trachea Midline Cardiovascular: NL Sounds; No Murmurs; No JVD, RRR Respiratory: Symmetrical Chest Expansion and Respiratory Effort Abdominal: NL Sounds; No Tenderness; No Distention Extremities: No Edema Neurological: - - confused at baseline, RUE weakness - Assessment Assessment: This patient with underlying significant dementia has had additional cerebral insults from GA as well as ischemic events, and is now unable to swallow food or drink water. However, he was getting IV fluids until 2 days ago, and he is not particularly dehydrated now. I spoke to his and daughter at great length. They would like to keep the patient here because they feel it is "clean " here, although he still has a bed at [facility]. They feel [facility] may be responsible for his fall and hip fracture, although they admitted that the patient was a bit reckless in his ambulation with his walker prior to the fall. The patient is now on comfort medication only, due to the expert hospitalist care he has received, and he could be transferred back to [facility] and receive hospice services from [facility] there. It is close to the family's home, and would allow them 24 hour visitation access. I do not expect the patient will live more than a week, two at the most. He qualifies for hospice services on the basis of his CVA/AMS and dysphagia. The family needs assistance with Medicaid application. Thanks for asking me to see him. - Plan Consult Plan (MU): Hospice - Time On Unit Date of Evaluation: 11/08/17 Hospice Consult Time in: 15:00 Hospice Consult Time Out: 16:30 Hospice Consult Time Total: 90
[2017-11-08] MEDS: Latanoprost 0.005%* 2.5 ml BTL BOTH EYES SCH (19:21)
--- NOTE | 2017-11-08 19:23 | PN ---
Subjective Date of Service: 11/08/17 Interval History: Patient seen and examined. No change in status, remains non-verbal, alert most of the time. No agitation or pain noted. Continues to pull at gown and brief. Family History: Unchanged from Admission Social History: Unchanged from Admission Past Medical History: Unchanged from Admission Objective Active Medications: Acetaminophen (Tylenol Supp*) 650 mg [place] Q4H PRN PRN Reason: FEVER/PAIN Last Admin: 11/05/17 22:31 Dose: 650 mg Aspirin (Asa Supp*) 300 mg [place] DAILY [facility] Last Admin: 11/08/17 07:57 Dose: 300 mg Atropine Sulfate (Atropine 1% (Oral/Sl)*) 2 drop SL Q2H PRN PRN Reason: DISCOMFORT Dextrose (D50w Syringe 50 Ml*) 12.5 gm IV PUSH .FOR FS < 60 - SS PRN PRN Reason: FS < 60 Latanoprost (Xalatan 0.005%*) 1 drop BOTH EYES QPM [facility] Last Admin: 11/07/17 18:59 Dose: 1 drop Morphine Sulfate (Morphine Vial*) 2 mg IV Q4H PRN PRN Reason: PAIN - MILD Last Admin: 11/05/17 17:45 Dose: 2 mg Morphine Sulfate (Morphine Oral Concentrate*) 5 mg SL Q2H PRN PRN Reason: pain, air hunger or tachypnea Last Admin: 11/08/17 07:57 Dose: 5 mg Vital Signs - 8 hr 11/08/17 11/08/17 11:49 19:09 Respiratory 22 20 Rate Oxygen Devices in Use Now: None Appearance: NAD Eyes: PERRLA Ears/Nose/Mouth/Throat: - - dry oral mucosa Neck: NL Appearance and Movements; NL JVP, Trachea Midline Respiratory: Symmetrical Chest Expansion and Respiratory Effort, Clear to Auscultation Cardiovascular: NL Sounds; No Murmurs; No JVD, RRR, No Edema Neurological: - - altered, dysphagia, bedbound Nutrition: - - dysphagia Result Diagrams: 11/05/17 06:28 11/03/17 05:50 Additional Lab and Data: Microbiology and Other Data: Microbiology 11/03/17 15:30 Urine Culture - Final Urine No Growth (<1,000 CFU/mL) Diagnostic Imaging: Patient Name: JAG BRITT Medical Record#: [id number] Ordering Physician: GEOVANNA Green Acct.#: [id number] : 1940 Age: 77 Sex: M Location: SURGICAL STAY UNIT Exam Date: 11/03/17 1834 ADM Status: ADM IN Order Information: CHEST AP PORTABLE Accession Number: [id number] CPT: 27509 Indication: Tachycardia, tachypnea. Single frontal view of the chest performed at 1921 hours was reviewed. Comparison is made with previous exam dated July 29, 2017. Patient is status post tracer thoracotomy. Airspace disease is noted in the upper lobes bilaterally. Blunting of the right costophrenic angle is noted. IMPRESSION: BIAPICAL INFILTRATES AND CHRONIC PLEURAL CHANGES IN THE RIGHT COSTOPHRENIC ANGLE. <Electronically signed by Rafaela Martinez MD in OV> 11/03/171999 Dictated By: Rafaela Martinez MD Dictated Date/Time: 11/03/171999 Transcribed Date/Time: 11/03/171958 Copy to: Patient Name: JAG BRITT Medical Record#: [id number] Ordering Physician: Effie Pitts NP Acct.#: [id number] : 1940 Age: 77 Sex: M Location: [address] [place] [address]/TELEMETRY Exam Date: 11/04/17 1406 ADM Status: ADM IN Order Information: NM LUNG PERFUSION W/VENTILATIO Accession Number: [id number] CPT: 95476 Indication: Shortness of breath. There is likely xenon-133 was administered by mask. 9.7 mCi was given. Approximately 6.2 mCi of technetium 99m macroaggregated albumin. Ventilation lung scan demonstrates no evidence of air trapping. Perfusion lung scan demonstrates no definite segmental or subsegmental perfusion defects identified. Prior chest x-ray demonstrates infiltrate in the left upper lobe. IMPRESSION: No evidence of ventilation or perfusion mismatches to suggest pulmonary embolus. This is low probability scan for pulmonary embolus. <Electronically signed by Rafaela Martinez MD in OV> 11/04/17 153 Dictated By: Rafaela Martinez MD Dictated Date/Time: 11/04/17 1533 Transcribed Date/Time: 11/04/17 1528 Copy to: CARDIAC ECHO Conclusions: The study is technically limited due to poor acoustic windows. The patient was combative throughout the study. Mild concentric left ventricular hypertrophy is observed. There are multiple regional wall motion abnormalities as described above. There is moderate to severely decreased left ventricular systolic function. The estimated ejection fraction is 25-30%. The bubble study is negative. The bubble study is negative.No evidence for right to left shunting as best as could be assessed given an uncooperative patient. The aortic valve structure is not well visualized. A bio-prosthetic aortic valve is present. The mean gradient of the aortic valve is 10.5 mmHg. The dimensionless index does not suggest significant stenosis of the valve. There is mild mitral regurgitation. Compared to report of study from 07/30/2015, the overall LV systolic function is significantly worse (was reported to be LVEF 50-55%), the mean gradient across the bioprosthetic valve is mildly increased (was 7.2 mm hg) . Patient Name: JAG BRITT Medical Record#: [id number] Ordering Physician: Effie Pitts NP Acct.#: [id number] : 1940 Age: 77 Sex: M Location: [address] [place] [address] MEDICAL/TELEMETRY Exam Date: 11/04/17 1232 ADM Status: ADM IN Order Information: MRI BRAIN W/O Accession Number: [id number] CPT: 87405 Indication: Stroke. Image sequences: Sagittal and axial T1, axial T2, FLAIR, diffusion and susceptibility weighted images of the brain were obtained. Ventricular structures are midline. No midline shift is noted. There is central and cortical atrophy noted. There is a moderate-sized area of restriction of diffusion involving the left posterior temporal lobe extending into the left parietal lobe. This is consistent with acute infarct. Additionally there appears to be smaller areas of restriction of diffusion involving the periventricular white matter on the left, into the left temporal lobe as well as scattered punctate areas of restriction of diffusion in the right centrum semiovale and right splenium of the corpus callosum. The posterior fossa demonstrates no restriction of diffusion. The brainstem is grossly unremarkable. IMPRESSION: Moderate-sized area of restriction of diffusion involving the left posterior temporal lobe extending into the parietal lobe. Other punctate areas of restriction of diffusion is noted in the left and right periventricular white matter as well as in the right splenium of the corpus callosum. <Electronically signed by Rafaela Martinez MD in OV> 11/04/172146 Dictated By: Rafaela Martinez MD Dictated Date/Time: 11/04/172146 Transcribed Date/Time: 11/04/172142 Copy to: MRA HEAD/NECK: Patient Name: JAG BRITT Medical Record#: [id number] Ordering Physician: Effie Pitts NP Acct.#: [id number] : 1940 Age: 77 Sex: M Location: [address] [place] [address]/TELEMETRY Exam Date: 11/04/17 123 ADM Status: ADM IN Order Information: MRA HEAD W/O Accession Number: [id number] CPT: 27012 Indication: Stroke. MRA of the head was performed utilizing 3-D [id number]-[id number]-anbafi technique. Motion artifact degrades the images. There is no flow noted in the left intracranial carotid artery. The intracavernous portions is unremarkable. The right internal carotid artery demonstrates flow. No aneurysmal dilatation is noted. The basilar artery and posterior cerebral arteries are unremarkable. IMPRESSION: Occluded left internal carotid artery with no flow detected in the intracranial carotid artery on the left. <Electronically signed by Rafaela Martinez MD in OV> 11/04/172137 Dictated By: Rafaela Martinez MD Dictated Date/Time: 11/04/172137 Transcribed Date/Time: 11/04/172136 Copy to: Assess/Plan/Problems-Billing Assessment: Mr. Britt is a 77 yo male with PMH significant for DM, s/p AVR, CAD s/p CABG, HTN, HLD, hyperthyroidism, chronic back pain, and dementia who presented to the emergency room after an unwitnessed fall at the SNF, s/p ORIF right hip fx. With post-operative acute cardioembolic CVA and resulting dysphagia. - Patient Problems (1) CVA (cerebral vascular accident) Code(s): I63.9 - CEREBRAL INFARCTION, UNSPECIFIED SNOMED Code(s): 232431987 Comment: - Consult with Dr. Davis today, hospice at [place] recommended - Morphine and atropine as needed - continue comfort measures until dispo plan is made, highly recommend discharge to facility with same day sign on for hospice - Case management following (2) Dysphagia Code(s): R13.10 - DYSPHAGIA, UNSPECIFIED SNOMED Code(s): 23381044 Comment: - Family does not want enteral feeding - Continue oral care and comfort measures (3) Closed right hip fracture Code(s): S72.001A - FRACTURE OF UNSP PART OF NECK OF RIGHT FEMUR, INIT SNOMED Code(s): 495435631 Comment: - POD6 - Dressing changed today (4) DNR (do not resuscitate) Comment: - [facility] updated on 11/02 Status and Disposition: Remain inpatient pending enrollment into hospice this week. Continue comfort measures and family support.
[2017-11-09] MEDS: Morphine ORAL CONCENTRATE* 5 MG/0.25 ML ORAL.SYRIN SL PRN ×4 (05:42→22:56)
[2017-11-09] MEDS: Aspirin SUPP* 300 MG PR SCH (09:41)
--- NOTE | 2017-11-09 12:39 | PN ---
Progress Note - Progress Note Date of Service: 11/09/17 Note: POD # 7. He is on comfort care and his family wants him home with the help of nursing and hospice. This is a good plan and reinforced with his today. Patient appears more comfortable than last week Right thigh has no reddness and minimal swelling. Dressing is dry and intact. Plans: Skin care OK to wash the right hip surgery and keep dressed with neosporin or betadine solution. The surgical hamida right hip can be removed after November 16.
--- NOTE | 2017-11-09 13:10 | PN ---
Subjective Date of Service: 11/09/17 Interval History: No overnight events. He answers some questions but is unclear, he denies pain but appears uncomfortable to me. He is unable to vocalize his needs or indicate whether anything is bothering him. Family History: Unchanged from Admission Social History: Unchanged from Admission Past Medical History: Unchanged from Admission Objective Active Medications: Acetaminophen (Tylenol Supp*) 650 mg [place] Q4H PRN PRN Reason: FEVER/PAIN Last Admin: 11/05/17 22:31 Dose: 650 mg Aspirin (Asa Supp*) 300 mg [place] DAILY [facility] Last Admin: 11/09/17 09:41 Dose: 300 mg Atropine Sulfate (Atropine 1% (Oral/Sl)*) 2 drop SL Q2H PRN PRN Reason: DISCOMFORT Dextrose (D50w Syringe 50 Ml*) 12.5 gm IV PUSH .FOR FS < 60 - SS PRN PRN Reason: FS < 60 Latanoprost (Xalatan 0.005%*) 1 drop BOTH EYES QPM [facility] Last Admin: 11/08/17 19:21 Dose: 1 drop Morphine Sulfate (Morphine Vial*) 2 mg IV Q4H PRN PRN Reason: PAIN - MILD Last Admin: 11/05/17 17:45 Dose: 2 mg Morphine Sulfate (Morphine Oral Concentrate*) 5 mg SL Q2H PRN PRN Reason: pain, air hunger or tachypnea Last Admin: 11/09/17 09:40 Dose: 5 mg Vital Signs - 8 hr 11/09/17 11/09/17 11/09/17 05:42 07:23 08:00 Respiratory 20 22 22 Rate 11/09/17 11/09/17 09:40 11:32 Respiratory 22 24 Rate Oxygen Devices in Use Now: None Appearance: alerts to voice, appears uncomfortable, no distress, mildly tachypneic, denies pain, does not follow commands, lying in bed undressed with no covers on Eyes: No Scleral Icterus Neck: NL Appearance and Movements; NL JVP Respiratory: Symmetrical Chest Expansion and Respiratory Effort, Clear to Auscultation Cardiovascular: NL Sounds; No Murmurs; No JVD, No Edema Abdominal: NL Sounds; No Tenderness; No Distention Lymphatic: No Cervical Adenopathy Extremities: No Edema, - - right hip with hamida, no surrounding erythema or drainage Neurological: - - flaccid right upper extremity, expressive and receptive aphasia Result Diagrams: 11/05/17 06:28 11/03/17 05:50 Additional Lab and Data: Microbiology and Other Data: Microbiology 11/03/17 15:30 Urine Culture - Final Urine No Growth (<1,000 CFU/mL) Diagnostic Imaging: Patient Name: JAG BRITT Medical Record#: [id number] Ordering Physician: GEOVANNA Green Acct.#: [id number] : 1940 Age: 77 Sex: M Location: SURGICAL STAY UNIT Exam Date: 11/03/17 183 ADM Status: ADM IN Order Information: CHEST AP PORTABLE Accession Number: [id number] CPT: 64061 Indication: Tachycardia, tachypnea. Single frontal view of the chest performed at 1921 hours was reviewed. Comparison is made with previous exam dated July 29, 2017. Patient is status post tracer thoracotomy. Airspace disease is noted in the upper lobes bilaterally. Blunting of the right costophrenic angle is noted. IMPRESSION: BIAPICAL INFILTRATES AND CHRONIC PLEURAL CHANGES IN THE RIGHT COSTOPHRENIC ANGLE. <Electronically signed by Rafaela Martinez MD in OV> 11/03/171999 Dictated By: Rafaela Martinez MD Dictated Date/Time: 11/03/171999 Transcribed Date/Time: 11/03/171958 Copy to: Patient Name: JAG BRITT Medical Record#: [id number] Ordering Physician: Effie Pitts NP Acct.#: [id number] : 1940 Age: 77 Sex: M Location: [address] [place] [address]/TELEMETRY Exam Date: 11/04/17 1406 ADM Status: ADM IN Order Information: NM LUNG PERFUSION W/VENTILATIO Accession Number: [id number] CPT: 93630 Indication: Shortness of breath. There is likely xenon-133 was administered by mask. 9.7 mCi was given. Approximately 6.2 mCi of technetium 99m macroaggregated albumin. Ventilation lung scan demonstrates no evidence of air trapping. Perfusion lung scan demonstrates no definite segmental or subsegmental perfusion defects identified. Prior chest x-ray demonstrates infiltrate in the left upper lobe. IMPRESSION: No evidence of ventilation or perfusion mismatches to suggest pulmonary embolus. This is low probability scan for pulmonary embolus. <Electronically signed by Rafaela Martinez MD in OV> 11/04/17 1533 Dictated By: Rafaela Martinez MD Dictated Date/Time: 11/04/17 1533 Transcribed Date/Time: 11/04/17 1528 Copy to: CARDIAC ECHO Conclusions: The study is technically limited due to poor acoustic windows. The patient was combative throughout the study. Mild concentric left ventricular hypertrophy is observed. There are multiple regional wall motion abnormalities as described above. There is moderate to severely decreased left ventricular systolic function. The estimated ejection fraction is 25-30%. The bubble study is negative. The bubble study is negative.No evidence for right to left shunting as best as could be assessed given an uncooperative patient. The aortic valve structure is not well visualized. A bio-prosthetic aortic valve is present. The mean gradient of the aortic valve is 10.5 mmHg. The dimensionless index does not suggest significant stenosis of the valve. There is mild mitral regurgitation. Compared to report of study from 07/30/2015, the overall LV systolic function is significantly worse (was reported to be LVEF 50-55%), the mean gradient across the bioprosthetic valve is mildly increased (was 7.2 mm hg) . Patient Name: JAG BRITT Medical Record#: [id number] Ordering Physician: Effie Pitts NP Acct.#: [id number] : 1940 Age: 77 Sex: M Location: [address] [place] [address]/TELEMETRY Exam Date: 11/04/17 1232 ADM Status: ADM IN Order Information: MRI BRAIN W/O Accession Number: [id number] CPT: 91244 Indication: Stroke. Image sequences: Sagittal and axial T1, axial T2, FLAIR, diffusion and susceptibility weighted images of the brain were obtained. Ventricular structures are midline. No midline shift is noted. There is central and cortical atrophy noted. There is a moderate-sized area of restriction of diffusion involving the left posterior temporal lobe extending into the left parietal lobe. This is consistent with acute infarct. Additionally there appears to be smaller areas of restriction of diffusion involving the periventricular white matter on the left, into the left temporal lobe as well as scattered punctate areas of restriction of diffusion in the right centrum semiovale and right splenium of the corpus callosum. The posterior fossa demonstrates no restriction of diffusion. The brainstem is grossly unremarkable. IMPRESSION: Moderate-sized area of restriction of diffusion involving the left posterior temporal lobe extending into the parietal lobe. Other punctate areas of restriction of diffusion is noted in the left and right periventricular white matter as well as in the right splenium of the corpus callosum. <Electronically signed by Rafaela Martinez MD in OV> 11/04/172146 Dictated By: Rafaela Martinez MD Dictated Date/Time: 11/04/172146 Transcribed Date/Time: 11/04/172142 Copy to: MRA HEAD/NECK: Patient Name: JAG BRITT Medical Record#: [id number] Ordering Physician: Effie Pitts NP Acct.#: [id number] : 1940 Age: 77 Sex: M Location: [address] [place] [address] MEDICAL/TELEMETRY Exam Date: 11/04/17 123 ADM Status: ADM IN Order Information: MRA HEAD W/O Accession Number: [id number] CPT: 92035 Indication: Stroke. MRA of the head was performed utilizing 3-D [id number]-[id number] technique. Motion artifact degrades the images. There is no flow noted in the left intracranial carotid artery. The intracavernous portions is unremarkable. The right internal carotid artery demonstrates flow. No aneurysmal dilatation is noted. The basilar artery and posterior cerebral arteries are unremarkable. IMPRESSION: Occluded left internal carotid artery with no flow detected in the intracranial carotid artery on the left. <Electronically signed by Rafaela Martinez MD in OV> 11/04/172137 Dictated By: Rafaela Martinez MD Dictated Date/Time: 11/04/172137 Transcribed Date/Time: 11/04/172136 Copy to: Assess/Plan/Problems-Billing Assessment: Mr. Birtt is a 77 yo male with PMH significant for DM, AVR, CAD s/p CABG, HTN, HLD, hyperthyroidism, chronic back pain, and dementia who presented to the emergency room after an unwitnessed fall at the SNF, s/p ORIF right hip fx. Now with subacute CVA and recent shift to end of life care, appropriate for hospice. - Patient Problems (1) End of life care Current Visit: Yes Status: Acute Code(s): Z51.5 - ENCOUNTER FOR PALLIATIVE CARE SNOMED Code(s): 981802183 Comment: I spoke with Mr. Britt's at length this morning--she has decided to take Mr. Britt home under hospice services. Her daughter works at [employer] but is pursuing [place] to help her mom. Awaiting referral to [facility]ice [facility] Continue morphine as needed (2) CVA (cerebral vascular accident) Current Visit: Yes Status: Acute Code(s): I63.9 - CEREBRAL INFARCTION, UNSPECIFIED SNOMED Code(s): 480289266 Comment: subacute, no further intervention planned, now with palliative/ hospice intent avoiding feeding tubes dysphagia and dysphasia and RUE weakness noted comfort feeds would be appropriate, but he does not express interest at this time (3) Closed right hip fracture Current Visit: Yes Status: Acute Code(s): S72.001A - FRACTURE OF UNSP PART OF NECK OF RIGHT FEMUR, INIT SNOMED Code(s): 815028455 Comment: POD #7 hamida to be removed November 16 (4) CAD (coronary artery disease) Current Visit: No Status: Chronic Code(s): I25.10 - ATHSCL HEART DISEASE OF [place] CORONARY ARTERY W/O ANG PCTRS SNOMED Code(s): 58407877 Comment: holding antiplatelets, bb, statin given comfort care (5) Dementia Current Visit: No Status: Chronic Code(s): F03.90 - UNSPECIFIED DEMENTIA WITHOUT BEHAVIORAL DISTURBANCE SNOMED Code(s): 46204306 Comment: supportive care worsened by cva and hospitalization Status and Disposition: plan for home with hospice when enrolled
[2017-11-09] MEDS: Latanoprost 0.005%* 2.5 ml BTL BOTH EYES SCH (19:51)
[2017-11-10] MEDS: Morphine ORAL CONCENTRATE* 5 MG/0.25 ML ORAL.SYRIN SL PRN ×2 (04:33→08:57)
[2017-11-10] MEDS: Aspirin SUPP* 300 MG PR SCH (09:52)
--- NOTE | 2017-11-10 17:06 | PN ---
Progress Note - Progress Note Date of Service: 11/10/17 SOAP: Subjective: []Patient seen at bedside, he is aware of my presence but unable to communicate with me. Objective: [] General: NAD RLE: Dressing changed. Incision CDI with well approximated wound edges and no surrounding erythema. Thigh is soft and nontender. 2+ DP pulse, capillary refill less than two seconds distally. BL LE: Calves soft and nontender without erythema, edema or palpable cords. Assessment: []77 yo male s/p uncomplicated reDHS repair of R hip with L sided stroke Plan: []Continue Daily Dressing changes - wash with soap and water, betadyne, telfa, 4x4's and tape Vital Signs Temp 99.0 F 11/06/17 15:38 Pulse 84 11/06/17 15:38 Resp 24 11/10/17 10:51 BP 144/52 11/06/17 15:38 Pulse Ox 97 11/06/17 15:38 Intake & Output 11/09/17 11/10/17 11/10/17 18:59 06:59 18:59 Intake Total 0 0 0 Output Total 0 Balance 0 0 0 Intake: Oral 0 0 0 Output: Urine 0 Other: Estimated Void Medium Small # Bowel Movements 0 # Voids 1 2 Laboratory Last Values WBC 4.1 10^3/ul (3.5-10.8) 11/05/17 06:28 RBC 3.15 10^6/ul (4.0-5.4) L 11/05/17 06:28 Hgb 8.1 g/dl (14.0-18.0) L 11/05/17 06:28 Hct 24 % (42-52) L 11/05/17 06:28 MCV 76 fL (80-94) L 11/05/17 06:28 MCH 26 pg (27-31) L 11/05/17 06:28 MCHC 34 g/dl (31-36) 11/05/17 06:28 RDW 24 % (10.5-15) H 11/05/17 06:28 Plt Count 95 10^3/ul (150-450) L 11/05/17 06:28 MPV 8.4 um3 (7.4-10.4) 11/05/17 06:28 Neut % (Auto) 81.9 % (38-83) 11/04/17 05:29 Lymph % (Auto) 6.4 % (25-47) L 11/04/17 05:29 [place] % (Auto) 10.7 % (0-7) H 11/04/17 05:29 Eos % (Auto) 0.2 % (0-6) 11/04/17 05:29 Baso % (Auto) 0.8 % (0-2) 11/04/17 05:29 Absolute Neuts (auto) 4.2 10^3/ul (1.5-7.7) 11/04/17 05:29 Absolute Lymphs (auto) 0.3 10^3/ul (1.0-4.8) L 11/04/17 05:29 Absolute Monos (auto) 0.6 10^3/ul (0-0.8) 11/04/17 05:29 Absolute Eos (auto) 0 10^3/ul (0-0.6) 11/04/17 05:29 Absolute Basos (auto) 0 10^3/ul (0-0.2) 11/04/17 05:29 Absolute Nucleated RBC 0 10^3/ul 11/04/17 05:29 Immature Gran % 1 % (0-9) 10/31/17 16:20 Neutrophils % 84 % (38-83) H 11/05/17 06:28 Band Neutrophils % 1 % (0-8) 10/31/17 16:20 Lymphocytes % 9 % (25-47) L 11/05/17 06:28 Monocytes % 5 % (0-7) 11/05/17 06:28 Eosinophils % 1 % (0-6) 11/05/17 06:28 Basophils % 1 % (0-2) 11/05/17 06:28 Nucleated RBC % 0.3 11/04/17 05:29 Abs Neuts (Manual) 3.4 10^3/ul (1.5-7.7) 11/05/17 06:28 Abs Lymphs (Manual) 0.4 10^3/ul (1.0-4.8) L 11/05/17 06:28 Abs Monocytes (Manual) 0.2 10^3/ul (0-0.8) 11/05/17 06:28 Absolute Eos (Manual) 0 10^3/ul (0-0.6) 11/05/17 06:28 Abs Basophils (Manual) 0 10^3/ul (0-0.2) 11/05/17 06:28 Nucleated RBCs/100 WBC 1 (0-0) H 10/31/17 16:20 Large Platelets Present 11/03/17 05:49 Giant Platelets Present 11/04/17 05:29 Normal RBC Morphology Not Reportable 11/05/17 06:28 Polychromasia 1+ 10/31/17 16:20 Anisocytosis 2+ 10/31/17 16:20 Microcytosis 1+ 10/31/17 16:20 Tear Drop Cells 1+ 11/05/17 06:28 Elliptocytes 2+ 11/05/17 06:28 Acanthocytes (Spur) 1+ 11/05/17 06:28 Schistocytes 1+ 11/05/17 06:28 Hem Pathologist Commnt 11/05/17 06:28 INR (Anticoag Therapy) 1.27 (0.77-1.02) H 11/02/17 07:38 APTT 27.2 seconds (26.0-36.3) 10/31/17 16:20 Sodium 139 mmol/L (139-145) 11/03/17 05:50 Potassium 3.6 mmol/L (3.5-5.0) 11/03/17 05:50 Chloride 105 mmol/L (101-111) 11/03/17 05:50 Carbon Dioxide 20 mmol/L (22-32) L 11/03/17 05:50 Anion Gap 14 mmol/L (2-11) H 11/03/17 05:50 BUN 10 mg/dL (6-24) 11/03/17 05:50 Creatinine 0.67 mg/dL (0.67-1.17) 11/03/17 05:50 Est GFR ( Amer) 147.5 (>60) 11/03/17 05:50 Est GFR (Non-Af Amer) 114.7 (>60) 11/03/17 05:50 BUN/Creatinine Ratio 14.9 (8-20) 11/03/17 05:50 Glucose 166 mg/dL (70-100) H 11/03/17 05:50 POC Glucose (mg/dL) 154 mg/dL (70-100) H 11/05/17 17:30 Hemoglobin A1c 6.7 % (4.0-5.6) H 11/05/17 06:28 Lactic Acid 0.9 mmol/L (0.5-2.0) 11/04/17 16:16 Calcium 8.0 mg/dL (8.6-10.3) L 11/03/17 05:50 Total Bilirubin 1.00 mg/dL (0.2-1.0) 11/02/17 07:38 AST 12 U/L (13-39) L 11/02/17 07:38 ALT 7 U/L (7-52) 11/02/17 07:38 Alkaline Phosphatase 78 U/L (34-104) 11/02/17 07:38 Troponin I 0.01 ng/mL (<0.04) 11/02/17 07:38 C-Reactive Protein 49.85 mg/L (< 5.00) H 10/31/17 16:20 Total Protein 6.4 g/dL (6.4-8.9) 11/02/17 07:38 Albumin 3.2 g/dL (3.2-5.2) 11/02/17 07:38 Globulin 3.2 g/dL (2-4) 11/02/17 07:38 Albumin/Globulin Ratio 1.0 (1-3) 11/02/17 07:38 Triglycerides 103 mg/dL 11/05/17 06:28 Cholesterol 82 mg/dL 11/05/17 06:28 LDL Cholesterol 37 mg/dL 11/05/17 06:28 HDL Cholesterol 24.4 mg/dL 11/05/17 06:28 Amylase 46 U/L (29-103) 10/31/17 16:20 Lipase 22 U/L (11.0-82.0) 10/31/17 16:20 Urine Color Yellow 11/03/17 15:30 Urine Appearance Clear 11/03/17 15:30 Urine pH 5.0 (5-9) 11/03/17 15:30 Ur Specific [place] 1.020 (1.010-1.030) 11/03/17 15:30 Urine Protein 1+(30 mg/dl) (Negative) A 11/03/17 15:30 Urine Ketones 2+ (Negative) A 11/03/17 15:30 Urine Blood 2+ (Negative) A 11/03/17 15:30 Urine Nitrate Negative (Negative) 11/03/17 15:30 Urine Bilirubin Negative (Negative) 11/03/17 15:30 Urine Urobilinogen Negative (Negative) 11/03/17 15:30 Ur Leukocyte Esterase Negative (Negative) 11/03/17 15:30 Urine WBC (Auto) Trace(0-5/hpf) (Absent) 11/03/17 15:30 Urine RBC (Auto) Absent (Absent) 11/03/17 15:30 Ur Squamous Epith Cells Present (Absent) A 11/03/17 15:30 Urine Bacteria Absent (Absent) 11/03/17 15:30 Urine Glucose 2+(150 mg/dl) (Negative) A 11/03/17 15:30 Blood Type O Positive 11/01/17 08:01 Antibody Screen Negative 11/01/17 08:01 Crossmatch See Detail 11/01/17 08:01
[2017-11-10] MEDS: Latanoprost 0.005%* 2.5 ml BTL BOTH EYES SCH (18:05)
--- NOTE | 2017-11-10 21:46 | PN ---
Subjective Date of Service: 11/10/17 Interval History: No overnight events. Seen with his at the bedside. He seems to recognize her. He responds to my voice but does not answer questions. His believes his pain is well controlled and she has not witness any work of breathing. Family History: Unchanged from Admission Social History: Unchanged from Admission Past Medical History: Unchanged from Admission Objective Active Medications: Acetaminophen (Tylenol Supp*) 650 mg [place] Q4H PRN PRN Reason: FEVER/PAIN Last Admin: 11/05/17 22:31 Dose: 650 mg Atropine Sulfate (Atropine 1% (Oral/Sl)*) 2 drop SL Q2H PRN PRN Reason: DISCOMFORT Last Admin: 11/10/17 11:09 Dose: 2 drp Dextrose (D50w Syringe 50 Ml*) 12.5 gm IV PUSH .FOR FS < 60 - SS PRN PRN Reason: FS < 60 Latanoprost (Xalatan 0.005%*) 1 drop BOTH EYES QPM RENEA Last Admin: 11/10/17 18:05 Dose: Not Given Morphine Sulfate (Morphine Oral Concentrate*) 5 mg SL Q2H PRN PRN Reason: pain, air hunger or tachypnea Last Admin: 11/10/17 08:57 Dose: 5 mg Vital Signs - 8 hr 11/10/17 19:40 Respiratory 24 Rate Oxygen Devices in Use Now: None Appearance: alerts to voice, does not answer questions, tracks with eyes, follows simple commands Eyes: No Scleral Icterus - d Ears/Nose/Mouth/Throat: - - dry mucosa Neck: NL Appearance and Movements; NL JVP Respiratory: Symmetrical Chest Expansion and Respiratory Effort, Clear to Auscultation Cardiovascular: NL Sounds; No Murmurs; No JVD, No Edema Abdominal: NL Sounds; No Tenderness; No Distention Lymphatic: No Cervical Adenopathy Extremities: - - right hip incision stapled, no erythema or drainage. right upper extremity paralysis. Result Diagrams: 11/05/17 06:28 11/03/17 05:50 Additional Lab and Data: Microbiology and Other Data: Microbiology 11/03/17 15:30 Urine Culture - Final Urine No Growth (<1,000 CFU/mL) Diagnostic Imaging: Patient Name: JAG BRITT Medical Record#: [id number] Ordering Physician: GEOVANNA Green Acct.#: [id number] : 1940 Age: 77 Sex: M Location: SURGICAL STAY UNIT Exam Date: 11/03/17 1834 ADM Status: ADM IN Order Information: CHEST AP PORTABLE Accession Number: [id number] CPT: 49970 Indication: Tachycardia, tachypnea. Single frontal view of the chest performed at 1921 hours was reviewed. Comparison is made with previous exam dated July 29, 2017. Patient is status post tracer thoracotomy. Airspace disease is noted in the upper lobes bilaterally. Blunting of the right costophrenic angle is noted. IMPRESSION: BIAPICAL INFILTRATES AND CHRONIC PLEURAL CHANGES IN THE RIGHT COSTOPHRENIC ANGLE. <Electronically signed by aRfaela Martinez MD in [place]> 11/03/171999 Dictated By: Rafaela Martinez MD Dictated Date/Time: 11/03/171999 Transcribed Date/Time: 11/03/171958 Copy to: Patient Name: JAG BRITT Medical Record#: [id number] Ordering Physician: Effie Pitts NP Acct.#: [id number] : 1940 Age: 77 Sex: M Location: [address] [place] [address]/TELEMETRY Exam Date: 11/04/17 1406 ADM Status: ADM IN Order Information: NM LUNG PERFUSION W/VENTILATIO Accession Number: [id number] CPT: 03833 Indication: Shortness of breath. There is likely xenon-133 was administered by mask. 9.7 mCi was given. Approximately 6.2 mCi of technetium 99m macroaggregated albumin. Ventilation lung scan demonstrates no evidence of air trapping. Perfusion lung scan demonstrates no definite segmental or subsegmental perfusion defects identified. Prior chest x-ray demonstrates infiltrate in the left upper lobe. IMPRESSION: No evidence of ventilation or perfusion mismatches to suggest pulmonary embolus. This is low probability scan for pulmonary embolus. <Electronically signed by Rafaela Martinez MD in [facility]> 11/04/17 1533 Dictated By: Rafaela Martinez MD Dictated Date/Time: 11/04/17 1533 Transcribed Date/Time: 11/04/17 1528 Copy to: CARDIAC ECHO Conclusions: The study is technically limited due to poor acoustic windows. The patient was combative throughout the study. Mild concentric left ventricular hypertrophy is observed. There are multiple regional wall motion abnormalities as described above. There is moderate to severely decreased left ventricular systolic function. The estimated ejection fraction is 25-30%. The bubble study is negative. The bubble study is negative.No evidence for right to left shunting as best as could be assessed given an uncooperative patient. The aortic valve structure is not well visualized. A bio-prosthetic aortic valve is present. The mean gradient of the aortic valve is 10.5 mmHg. The dimensionless index does not suggest significant stenosis of the valve. There is mild mitral regurgitation. Compared to report of study from 07/30/2015, the overall LV systolic function is significantly worse (was reported to be LVEF 50-55%), the mean gradient across the bioprosthetic valve is mildly increased (was 7.2 mm hg) . Patient Name: JAG BRITT Medical Record#: [id number] Ordering Physician: Effie Pitts NP Acct.#: [id number] : 1940 Age: 77 Sex: M Location: [address] [place] [address] MEDICAL/TELEMETRY Exam Date: 11/04/17 1232 ADM Status: ADM IN Order Information: MRI BRAIN W/O Accession Number: [id number] CPT: 37317 Indication: Stroke. Image sequences: Sagittal and axial T1, axial T2, FLAIR, diffusion and susceptibility weighted images of the brain were obtained. Ventricular structures are midline. No midline shift is noted. There is central and cortical atrophy noted. There is a moderate-sized area of restriction of diffusion involving the left posterior temporal lobe extending into the left parietal lobe. This is consistent with acute infarct. Additionally there appears to be smaller areas of restriction of diffusion involving the periventricular white matter on the left, into the left temporal lobe as well as scattered punctate areas of restriction of diffusion in the right centrum semiovale and right splenium of the corpus callosum. The posterior fossa demonstrates no restriction of diffusion. The brainstem is grossly unremarkable. IMPRESSION: Moderate-sized area of restriction of diffusion involving the left posterior temporal lobe extending into the parietal lobe. Other punctate areas of restriction of diffusion is noted in the left and right periventricular white matter as well as in the right splenium of the corpus callosum. <Electronically signed by Rafaela Martinez MD in [facility]> 11/04/172146 Dictated By: Rafaela Martinez MD Dictated Date/Time: 11/04/172146 Transcribed Date/Time: 11/04/172142 Copy to: MRA HEAD/NECK: Patient Name: JAG BRITT Medical Record#: [id number] Ordering Physician: Effie Pitts NP Acct.#: [id number] : 1940 Age: 77 Sex: M Location: [address] [place] [address] MEDICAL/TELEMETRY Exam Date: 11/04/17 1232 ADM Status: ADM IN Order Information: MRA HEAD W/O Accession Number: [id number] CPT: 34703 Indication: Stroke. MRA of the head was performed utilizing 3-D [id number] technique. Motion artifact degrades the images. There is no flow noted in the left intracranial carotid artery. The intracavernous portions is unremarkable. The right internal carotid artery demonstrates flow. No aneurysmal dilatation is noted. The basilar artery and posterior cerebral arteries are unremarkable. IMPRESSION: Occluded left internal carotid artery with no flow detected in the intracranial carotid artery on the left. <Electronically signed by Rafaela Martinez MD in [facility]> 11/04/172137 Dictated By: Rafaela Martinez MD Dictated Date/Time: 11/04/172137 Transcribed Date/Time: 11/04/172136 Copy to: Assess/Plan/Problems-Billing Assessment: Mr. Britt is a 77 yo male with PMH significant for DM, AVR, CAD s/p CABG, HTN, HLD, hyperthyroidism, chronic back pain, and dementia who presented to the emergency room after an unwitnessed fall at the SNF, s/p ORIF right hip fx. Now with subacute CVA and recent shift to end of life care, appropriate for hospice. - Patient Problems (1) End of life care Current Visit: Yes Status: Acute Code(s): Z51.5 - ENCOUNTER FOR PALLIATIVE CARE SNOMED Code(s): 640767632 Comment: Pain is controlled on morphine Breathing is comfortable Patient's daughter unable to help her mom care for Mr. Britt, so home with hospice is no longer an option Ready for discharge, awaiting family's decision for placement (2) CVA (cerebral vascular accident) Current Visit: Yes Status: Acute Code(s): I63.9 - CEREBRAL INFARCTION, UNSPECIFIED SNOMED Code(s): 590207600 Comment: subacute, no further intervention planned, now with palliative/ hospice intent avoiding feeding tubes dysphagia and dysphasia and RUE weakness noted comfort feeds would be appropriate, but he does not express interest at this time [place] ASA discontinued due to comfort care (3) Closed right hip fracture Current Visit: Yes Status: Acute Code(s): S72.001A - FRACTURE OF UNSP PART OF NECK OF RIGHT FEMUR, INIT SNOMED Code(s): 250304513 Comment: POD #8 hamida to be removed May 8 (4) CAD (coronary artery disease) Current Visit: No Status: Chronic Code(s): I25.10 - ATHSCL HEART DISEASE OF [place] CORONARY ARTERY W/O ANG PCTRS SNOMED Code(s): 76832739 Comment: holding antiplatelets, bb, statin given comfort care (5) Dementia Current Visit: No Status: Chronic Code(s): F03.90 - UNSPECIFIED DEMENTIA WITHOUT BEHAVIORAL DISTURBANCE SNOMED Code(s): 36059849 Comment: supportive care worsened by cva and hospitalization Status and Disposition: ready for discharge on comfort care
[2017-11-11 07:49] VITALS: BP 143/63
[2017-11-11] MEDS: Morphine ORAL CONCENTRATE* 5 MG/0.25 ML ORAL.SYRIN SL PRN ×3 (09:03→16:59)
--- NOTE | 2017-11-11 14:54 | PN ---
Subjective Date of Service: 11/11/17 Interval History: Mr. Britt appears comfortable. His family have no concerns at this time. Family History: Unchanged from Admission Social History: Unchanged from Admission Past Medical History: Unchanged from Admission Objective Active Medications: Acetaminophen (Tylenol Supp*) 650 mg [place] Q4H PRN Atropine Sulfate (Atropine 1% (Oral/Sl)*) 2 drop SL Q2H PRN Dextrose (D50w Syringe 50 Ml*) 12.5 gm IV PUSH .FOR FS < 60 - SS PRN Latanoprost (Xalatan 0.005%*) 1 drop BOTH EYES QPM RENEA Morphine Sulfate (Morphine Oral Concentrate*) 5 mg SL Q2H PRN Vital Signs: Temp Pulse Resp BP Pulse Ox 99.0 F 103 24 143/63 94 11/11/17 07:48 11/11/17 07:48 11/11/17 14:09 11/11/17 07:48 11/11/17 07:48 Oxygen Devices in Use Now: None Appearance: Male lying in bed in NAD Eyes: No Scleral Icterus Ears/Nose/Mouth/Throat: - - Mucous membranes dry Respiratory: Symmetrical Chest Expansion and Respiratory Effort Cardiovascular: No Edema Neurological: - - Alert, calm Nutrition: Taking PO's Result Diagrams: 11/05/17 06:28 11/03/17 05:50 Additional Lab and Data: . Microbiology and Other Data: . Diagnostic Imaging: . Assess/Plan/Problems-Billing Assessment: Mr. Britt is a 77 yo male with PMH significant for DM, AVR, CAD s/p CABG, HTN, HLD, hyperthyroidism, chronic back pain, and dementia who presented to the emergency room after an unwitnessed fall at the SNF, s/p ORIF right hip fx. Now with subacute CVA and recent shift to end of life care, appropriate for hospice. - Patient Problems (1) End of life care Comment: - Pain is controlled on morphine - Breathing is comfortable - Patient's daughter unable to help her mom care for Mr. Britt, so home with hospice is no longer an option - Ready for discharge, awaiting family's decision for placement (2) CVA (cerebral vascular accident) Comment: - Subacute, no further intervention planned, now with palliative/hospice intent (3) Closed right hip fracture Comment: - POD #9 - Lc to be removed November 8 (4) Dysphagia Comment: - Family does not want enteral feeding - Continue oral care and comfort measures (5) Dementia Comment: - Supportive care - Worsened by cva and hospitalization (6) DVT prophylaxis Comment: - Will DC heparin, as patient is comfort care (7) DNR (do not resuscitate) Comment: - [facility]OL[facility] updated on 11/02 Status and Disposition: Ready for discharge on comfort care when bed available.
[2017-11-11] MEDS: Latanoprost 0.005%* 2.5 ml BTL BOTH EYES SCH (16:59)
[2017-11-12] MEDS: Morphine ORAL CONCENTRATE* 5 MG/0.25 ML ORAL.SYRIN SL PRN (03:42)
[2017-11-12] MEDS ORDERED: Morphine ORAL CONCENTRATE* 5 MG/0.25 ML ORAL.SYRIN SL PRN (03:54)
--- NOTE | 2017-11-12 07:06 | PN ---
Progress Note - Progress Note Date of Service: 11/12/17 Note: I was notified by nursing that at 0519 the patient had no heart beat or breath sounds. He was on comfort care for CVA that was likely evolving on admission that likely lead to his fall and then resultant hip fracture. I spoke with the web programmer and the body was released.
== END 2017-11-12 05:19 | disposition expired | DRG 480 ==
LOC: ED 16:02 → SSU 19:47 → MEDTELE 11-04 13:37
PROVIDERS: ADMIT Hospitalist; ATTEND Student in an Organized Health Care Education/Training Program
PROC: 30233N1 Transfusion of Nonautologous Red Blood Cells into Peripheral Vein, Percutaneous Approach (ICD-10-PCS; 2017-11-02)
PROC: 0QS604Z Reposition Right Upper Femur with Internal Fixation Device, Open Approach (ICD-10-PCS; principal; 2017-11-02 14:00)
DX: S72.141A Displaced intertrochanteric fracture of right femur, initial encounter for closed fracture (principal); I63.9 Cerebral infarction, unspecified; D62 Acute posthemorrhagic anemia; F03.90 Unspecified dementia, unspecified severity, without behavioral disturbance, psychotic disturbance, mood disturbance, and anxiety; I25.10 Atherosclerotic heart disease of native coronary artery without angina pectoris; Z95.1 Presence of aortocoronary bypass graft; E11.9 Type 2 diabetes mellitus without complications; I10 Essential (primary) hypertension; E78.5 Hyperlipidemia, unspecified; E03.9 Hypothyroidism, unspecified; G89.29 Other chronic pain; M54.9 Dorsalgia, unspecified; W19.XXXA Unspecified fall, initial encounter; Y92.129 Unspecified place in nursing home as the place of occurrence of the external cause; Z66 Do not resuscitate; Z51.5 Encounter for palliative care; I44.7 Left bundle-branch block, unspecified; G47.33 Obstructive sleep apnea (adult) (pediatric); F32.9 Major depressive disorder, single episode, unspecified; Z85.828 Personal history of other malignant neoplasm of skin; Z95.3 Presence of xenogenic heart valve; Z88.2 Allergy status to sulfonamides; Z88.6 Allergy status to analgesic agent; Z88.8 Allergy status to other drugs, medicaments and biological substances; Z91.041 Radiographic dye allergy status; Z87.891 Personal history of nicotine dependence; R13.10 Dysphagia, unspecified
CPT/HCPCS: 36415; 70450; 70544; 70549; 70551; 71045; 72131; 72170; 74176; 78582; 80048; 80053; 80061; 81003; 81015; 82150; 83036; 83605; 83690; 84484; 85014; 85018; 85025; 85027; 85060; 85610; 85730; 86140; 86850; 86900; 86901; 86922; 87040; 87086; 87641; 93005; 93306; 99284; A9270-GY; A9540; A9558; A9579; C1713; C1776; G8978-GP-CN; G8979-GP-CI; J0690; J1644; J1940; J2060; J2270; J2405; J2543; J3010; P9040